=== PATIENT | female | born 1950 | race Caucasian/White ===

== ENCOUNTER 2020-06-05 08:35 | Outpatient (REF) | payer MEDICARE, SELFPAY ==
[2020-06-05 09:27] LABS: MANUAL DIFF FLAG NO
[2020-06-05 09:43] LABS: Basophils Percent Auto 0.6 % (0-2); Eosinophils Percent Auto 0.4 % (0-4); Hematocrit 41.6 % (37-47); Hemoglobin 13.8 g/dl (12.0-16.0); Imm Gran Abs Auto 0.02 X10*3/uL (0.00-0.03); Imm Gran Pct Auto 0.4 % (0.0-0.4); Lymphocytes Absolute Auto 1.7 X10*3/uL (1.2-4.9); Lymphocytes Percent Auto 34.6 % (20-40); Mean Corpuscular HGB Conc 33.2 g/dl (31.0-35.0); Mean Corpuscular Hemoglobin 30.8 pg (27.0-33.0); Mean Corpuscular Volume 92.9 fL (80-98); Mean Platelet Volume 11.1 fL (9.4-12.3); Monocytes Absolute Auto 0.5 X10*3/uL (0.1-1.2); Monocytes Percent Auto 9.3 % (2-11); Neutrophils Absolute Auto 2.6 X10*3/uL (2.0-8.3); Neutrophils Percent Auto 54.7 % (45-73); Platelet Count 199 X10*3/uL (160-400); Red Blood Count 4.48 X10*6/uL (4.20-5.50); Red Cell Distribution Width 12.1 % (11.0-16.0); White Blood Count 4.8 X10*3/uL (4.8-10.8)
[2020-06-05 09:44] LABS: Estimated Average Glucose 114 mg/dL; Hemoglobin A1c % 5.6 %
[2020-06-05 10:24] LABS: Alanine Aminotransferase 28 U/L (0-31); Albumin Level 4.5 g/dL (3.5-5.0); Alkaline Phosphatase 48 U/L (39-117); Anion Gap 12 (12-20); Aspartate Amino Transferase 31 U/L (5-31); Blood Urea Nitrogen 14 mg/dL (9-16); Carbon Dioxide 26 mmol/L (22-29); Chloride 108 mmol/L (96-108); Cholesterol 156 mg/dL; Estimated Glomerular Filt Rate > 60; Glucose Fasting 94 mg/dL (60-99); HDL Cholesterol 59 mg/dL; LDL Cholesterol Calculated 72 mg/dl; Potassium 4.2 mmol/l (3.3-5.1); Sodium 142 mmol/L (135-145); Total Protein 7.3 g/dL (6.5-8.0); Triglycerides 125 mg/dL
[2020-06-05 10:46] LABS: Thyroid Stimulating Hormone 1.59 mIU/mL (0.32-4.0); Vitamin D 25-OH Total 49.1 ng/mL (>30)
[2020-06-05 10:47] LABS: Folate 18.7 ng/mL (> or = 4.0); Vitamin B12 588 pg/mL (200-900)
== END 2020-06-05 08:36 | disposition home or self-care (01) ==
LOC: HO.LAB 08:35
PROVIDERS: Visit Provider Internal Medicine
DX: I25.10 Atherosclerotic heart disease of native coronary artery without angina pectoris (principal); E78.00 Pure hypercholesterolemia, unspecified; I10 Essential (primary) hypertension; F41.9 Anxiety disorder, unspecified; R73.02 Impaired glucose tolerance (oral); J30.9 Allergic rhinitis, unspecified; Z85.3 Personal history of malignant neoplasm of breast
CPT/HCPCS: 36415; 80053; 80061; 82306; 82607; 82746; 83036; 84436; 84443; 85025

== ENCOUNTER → 2020-08-10 14:31 | Outpatient (BNVA) | payer MEDICARE, SELFPAY | PROVIDERS: Visit Provider Internal Medicine Cardiovascular Disease | DX: I25.118 Atherosclerotic heart disease of native coronary artery with other forms of angina pectoris (principal); I10 Essential (primary) hypertension | CPT/HCPCS: 99212 ==

== ENCOUNTER 2020-08-31 09:11 | Outpatient (REF) | payer MEDICARE, SELFPAY | END 2020-08-31 09:12 | disposition home or self-care (01) | LOC: HO.WFDLDS 09:11 | PROVIDERS: PCP Internal Medicine; Visit Provider Internal Medicine | DX: Z20.822 Contact with and (suspected) exposure to COVID-19 (principal) | CPT/HCPCS: 36415; C9803; U0003 ==

== ENCOUNTER 2021-02-01 10:05 | Outpatient (REF) | payer MEDICARE, SELFPAY ==
--- NOTE | ~2021-02-01 | XR_ITS ---
EXAMINATION: XR FOOT, LEFT CLINICAL INFORMATION: Contusion. COMPARISON: None. TECHNIQUE: AP, lateral, and oblique views of the left foot. FINDINGS: There is a slightly displaced intra-articular fracture at the base of the 2nd distal phalanx, at the DIP joint, with the fracture line extending obliquely through the dorsal cortex. No additional fractures are evident. XR/XR foot LT 2V IMPRESSION: Slightly displaced/angulated, intra-articular fracture at the base of the 2nd distal phalanx.
== END 2021-02-01 10:06 | disposition home or self-care (01) ==
LOC: HO.XRAY 10:05
PROVIDERS: PCP Internal Medicine; Visit Provider Family Medicine
DX: S90.122A Contusion of left lesser toe(s) without damage to nail, initial encounter (principal)
CPT/HCPCS: 73620

== ENCOUNTER 2021-02-17 07:58 | Outpatient (REF) | payer MEDICARE, SELFPAY ==
--- NOTE | ~2021-02-17 | XR_ITS ---
EXAMINATION: XR FOOT, LEFT CLINICAL INFORMATION: Left foot pain. COMPARISON: Left foot radiographs dated 02/01/2021. TECHNIQUE: AP, lateral, and oblique views of the left foot. FINDINGS: Redemonstration of an oblique fracture through the dorsal base of the 2nd distal phalanx which contacts the articular surface. No significant change in anatomic alignment. No osseous erosion. Mild degenerative arthritis at the sesamoids. No abnormal soft tissue calcification. XR/XR foot LT min 3V IMPRESSION: Oblique fracture through the dorsal base of the 2nd distal phalanx which contacts the articular surface in unchanged anatomic alignment.
== END 2021-02-17 07:59 | disposition home or self-care (01) ==
LOC: HO.HOSX 07:58
PROVIDERS: Visit Provider Physician Assistant
DX: S92.302A Fracture of unspecified metatarsal bone(s), left foot, initial encounter for closed fracture (principal)
CPT/HCPCS: 73630; 99202

== ENCOUNTER 2021-03-09 08:27 | Outpatient (REF) | payer MEDICARE, SELFPAY ==
[2021-03-09 10:28] LABS: MANUAL DIFF FLAG NO
[2021-03-09 10:39] LABS: Basophils Percent Auto 0.4 % (0-2); Eosinophils Percent Auto 0.2 % (0-4); Hematocrit 41.6 % (37-47); Hemoglobin 14.2 g/dl (12.0-16.0); Imm Gran Abs Auto 0.01 X10*3/uL (0.00-0.03); Imm Gran Pct Auto 0.2 % (0.0-0.4); Lymphocytes Absolute Auto 1.7 X10*3/uL (1.2-4.9); Lymphocytes Percent Auto 34.7 % (20-40); Mean Corpuscular HGB Conc 34.1 g/dl (31.0-35.0); Mean Corpuscular Hemoglobin 31.3 pg (27.0-33.0); Mean Corpuscular Volume 91.6 fL (80-98); Monocytes Absolute Auto 0.4 X10*3/uL (0.1-1.2); Monocytes Percent Auto 8.3 % (2-11); Neutrophils Absolute Auto 2.7 X10*3/uL (2.0-8.3); Neutrophils Percent Auto 56.2 % (45-73); Platelet Count 187 X10*3/uL (160-400); Red Blood Count 4.54 X10*6/uL (4.20-5.50); Red Cell Distribution Width 12.2 % (11.0-16.0); White Blood Count 4.8 X10*3/uL (4.8-10.8)
[2021-03-09 10:44] LABS: Alanine Aminotransferase 41 U/L (0-31); Albumin Level 4.4 g/dL (3.5-5.0); Alkaline Phosphatase 50 U/L (39-117); Anion Gap 14 (12-20); Aspartate Amino Transferase 34 U/L (5-31); Bilirubin Total 0.8 mg/dL (0.0-1.0); Blood Urea Nitrogen 14 mg/dL (9-16); Calcium 9.6 mg/dL (8.4-10.2); Carbon Dioxide 25 mmol/L (22-29); Chloride 108 mmol/L (96-108); Cholesterol 142 mg/dL; Estimated Glomerular Filt Rate > 60; Glucose Random 98 mg/dL (60-115); HDL Cholesterol 55 mg/dL; LDL Cholesterol Calculated 70 mg/dl; Sodium 142 mmol/L (135-145); Total Protein 7.3 g/dL (6.5-8.0); Triglycerides 87 mg/dL
[2021-03-09 11:07] LABS: Free T4 (Free Thyroxine) 0.95 ng/dL (0.71-1.85); Thyroid Stimulating Hormone 1.61 uIU/mL (0.32-4.0); Vitamin D 25-OH Total 45.3 ng/mL (>30)
[2021-03-09 11:35] LABS: Folate 18.1 ng/mL (> or = 4.0); Vitamin B12 525 pg/mL (200-900)
== END 2021-03-09 08:28 | disposition home or self-care (01) ==
LOC: HO.10HDL 08:27
PROVIDERS: Visit Provider Internal Medicine
DX: I25.10 Atherosclerotic heart disease of native coronary artery without angina pectoris (principal); I10 Essential (primary) hypertension; E78.00 Pure hypercholesterolemia, unspecified
CPT/HCPCS: 36415; 80053; 80061; 82306; 82607; 82746; 84439; 84443; 85025

== ENCOUNTER → 2021-07-16 07:18 | Outpatient (REF) | payer MEDICARE, SELFPAY ==
--- NOTE | 2021-07-16 07:20 | CA_ITS ---
Transthoracic Echocardiogram Patient (Last, First, Middle): Alison Mary, Gender: Female Date of : 1950 Age: 70 Procedure Date: 07/16/2021 Procedure Type: Transthoracic Echocardiogram Location: OP Height: 162.56 cm Weight: 73.48 kg BSA: 1.79 m2 Heart Rate: bpm BP: 130 / 71 mmHg Research Program Assistant: AQUILES Referring MD: Jordan Tadeo MD Symptoms: I44.7 - Left bundle-branch block, unspecified Conclusions: - Normal left ventricular size and systolic function. - Normal right ventricular cavity size and systolic function. Findings Left Ventricle Normal left ventricular size and systolic function. There is mildly increased left ventricular wall thickness. The visually estimated ejection fraction is between 60-65%. There is no evidence of regional wall motion abnormalities. There is paradoxical septal motion consistent with a left bundle branch block. Diastolic function is normal for age. Normal global longitudinal strain. Right Ventricle Normal right ventricular cavity size and systolic function. Atria Both atria are normal in size. Aortic Valve There is a normal trileaflet aortic valve. There is mild calcification of the aortic valve. There is no aortic valve stenosis. There is no aortic valve regurgitation. Mitral Valve Normal mitral valve structure and function. There is trace mitral valve regurgitation. There is no mitral valve stenosis. Pulmonic Valve The pulmonic valve is likely normal. Tricuspid Valve Normal tricuspid valve structure and function. There is trace tricuspid valve regurgitation. Normal right atrial pressure. There is no evidence of pulmonary hypertension. Great Vessels There is mild dilatation of the ascending aorta measuring 3.60 cm. The visualized portions of the pulmonary artery and branches are normal. Venous The inferior vena cava is normal in size and collapses greater than 50% with inspiration. Pericardium/Pleural There is no evidence of pericardial effusion. Prior Study Comparison No prior study available for comparison. Measurements M-Mode Liner Measurements Normals - Women/Men LVIDd: 4.43 3.9-5.3/4.2-5.9 cm LVIDd Index: 2.47 1.9-3.2 cm/m2 LVIDs: 2.74 2.0-3.8 cm M-Mode Volumes LV EDV: 89.10 LV ESV: 28.00 2D Linear Measurements IVSd: 1.20 0.6-0.9/0.6-1.0 cm LVIDd: 4.21 3.9-5.3/4.2-5.9 cm LVIDd Index: 2.35 2.4-3.2/2.2-3.1 cm/m2 LVIDs: 2.43 2.0-3.6 cm LVPWd: 1.12 0.7-1.1 cm Ao Root: 3.50 2.1-3.5 cm LA Diam: 3.20 2.7-3.8/3.0-4.0 cm LAIDs Index: 1.79 1.5-2.3 cm/m2 LV Mass: 211.98 67-162/88-224 g LV Mass Index: 118.42 43-95/49-115 g/m2 LVOT Diam: 1.90 3.0+(-)1.3 cm 2D Systolic Function EF 4C: 69.80 >55% EF 2C: 69.90 >55% EF BiP: 69.70 >55% M-Mode Systolic Function FS: 38.10 27-47/25-43% LVEF: 68.60 >55% Mitral Valve MV Pk E: 0.54 MV PK A: 0.61 MV Decel Time: 254.00 E/A: 0.90 E'Lateral: 6.42 E'Medial: 5.98 E/E' Med: 9.00 E/E' Lat: 8.30 PHT: 74.00 MVA PHT: 2.97 Decel [place]: 2.11 Aortic Valve AoV Pk Shlomo: 1.47 AoV Pk Grad: 9.00 LVOT LVOT Pk Shlomo: 0.95 LVOT Mn Shlomo: 0.67 LVOT VTI: 0.22 LVOT Pk Grad: 4.00 LVOT Mn Grad: 2.00 LVOT Diam: 1.90 LVOT Area: 2.84 Diastolic Function MV Pk E: 0.54 MV Pk A: 0.61 E/A: 0.90 E'Medial: 5.98 E/E' Med: 9.00 E' Laterial: 6.42 E/E' Lat: 8.30 Right Ventricle TAPSE (mm): 2.43 Tricuspid Valve TR Pk Shlomo: 2.35 TR Pk Grad: 22.00 RA Press: 3.00 RVSP: 25.00 Great Vessels Aorta Ao Root-2D: 3.50 2.0-3.7 cm Ao Asc: 3.60 2.1-3.4 cm Updated in Other Vendor System with Status of Final Jordan Tadeo MD electronically signed on 07/18/2021 6:37:12 PM with status of Final
== END ==
LOC: HO.CARD 07:18
PROVIDERS: PCP Internal Medicine; Visit Provider Internal Medicine Cardiovascular Disease
DX: I44.7 Left bundle-branch block, unspecified (principal)
CPT/HCPCS: 93306

== ENCOUNTER → 2021-07-19 15:36 | Outpatient (BNVA) | payer MEDICARE, SELFPAY | PROVIDERS: PCP Internal Medicine; Referring Provider Internal Medicine; Visit Provider Internal Medicine Cardiovascular Disease | DX: I44.7 Left bundle-branch block, unspecified (principal); I20.8 Other forms of angina pectoris | CPT/HCPCS: 93005; 99212 ==

== ENCOUNTER 2022-01-18 09:10 | Day surgery (SDC) | payer MEDICARE, SELFPAY ==
[2022-01-12 11:35] VITALS: BMI 28.8
--- NOTE | 2022-01-17 08:35 | P.CONAN_ITS ---
Documented by User: Shayy Freeman NP 01/17/22 08:36 HPI - Anesthesia Eval Consult details Narrative: 71yo F for Colonoscopy PMFSH Active Problems Active Problems: All Active Problems (Updated 01/12/22 @ 11:28 by Fabiola Lopez RN) Hematoma (Acute) Stable angina (Acute) Foot fracture, left (Acute) Colon cancer screening (Acute) Metatarsal fracture (Acute) Generalized anxiety disorder (Acute) LBBB (left bundle branch block) (Acute) Colon cancer screening (Acute) Allergic rhinitis (Acute) GERD (gastroesophageal reflux disease) (Acute) Hypertension (Acute) Hypercholesterolemia (Acute) Coronary artery disease (Acute) Past Medical History Medical History COVID-19 vaccine series completed Fatty liver Fracture of distal phalanx of finger of right hand History of breast cancer Shingles Family History Family History Father CHF (congestive heart failure) CVD (cardiovascular disease) Mother Myocardial infarction CVD (cardiovascular disease) Brother Myocardial infarction Surgical History Surgical History H/O colonoscopy History of angioplasty History of lumpectomy of left breast History of tubal ligation Social History Social History Housing: House Alcohol intake: current Alcohol intake frequency: a few times a week Alcohol type: wine Patient Tobacco Use Status: Never used Tobacco e-Cigarette/Vaping Use: Never Used Second Hand Smoke Exposure: No Use of substances other than those prescribed or required for medical reasons: No Are you DNR?: No Advance Directives: No Advance Directives Information Provided: Yes Current occupational status: retired Cognitive needs: No Hearing needs: No Vision needs: Yes Meds Allergies Allergy/AdvReac Type Severity Reaction Status Date / Time lisinopril Allergy Severe anaphylaxis Verified 12/20/21 09:25 amoxicillin Allergy Intermediate rash Verified 12/20/21 09:25 atenolol Allergy Intermediate rash Verified 12/20/21 09:25 Sulfa (Sulfonamide Allergy Intermediate rash Verified 12/20/21 09:25 Antibiotics) Home Medications Medication Instructions Recorded Confirmed Last Taken Type aspirin 81 mg tablet,delayed 81 mg PO DAILY 06/22/20 01/12/22 Unknown History release (Adult Aspirin Regimen) biotin 5 mg capsule 5 mg PO DAILY 06/22/20 01/12/22 Unknown History cholecalciferol (vitamin D3) 25 25 mcg PO DAILY 06/22/20 01/12/22 Unknown History mcg (1,000 unit) capsule melatonin 3 mg capsule 3 mg PO BEDTIME PRN Insomnia 06/22/20 01/12/22 Unknown History hgvvoeio-bmn-gkypf acid 0.4 1 tab PO DAILY 06/22/20 01/12/22 Unknown History mg-lycopene 300 mcg-lutein 250 mcg tablet (Centrum Silver) nitroglycerin 0.4 mg sublingual 0.4 mg sublingual Q5M PRN Chest 06/22/20 01/12/22 Unknown History tablet Pain calcium carbonate 500 mg calcium 500 mg PO DAILY 07/19/21 01/12/22 Unknown History (1,250 mg) chewable tablet (Calcium 500) Exam Exam Date and Time: January 17, 2022 0835 Height,Weight and Vital Signs: Height 5 ft 4 in Weight 76.204 kg Narrative Narrative: EKG 07/2021 Sinus bradycardia 56 beats per minute, inferior T-wave inversions, precordial T- wave changes which are nonspecific, QT interval 438 milliseconds.? EKG from [facility] reviewed which was performed July 12.? Showing sinus bradycardia 54 beats per minute, left bundle-branch block, QT interval of 474 milliseconds. Assessment and Plan Assessment Anesthesia Assessment: Chart Reviewed Documented by User: Conrad Landin MD 01/18/22 10:22 [facility] Past Medical History Medical History COVID-19 vaccine series completed Fatty liver Fracture of distal phalanx of finger of right hand History of breast cancer Shingles Family History Family History Father CHF (congestive heart failure) CVD (cardiovascular disease) Mother Myocardial infarction CVD (cardiovascular disease) Brother Myocardial infarction Family history of problems with anesthesia: No Surgical History Surgical History H/O colonoscopy History of angioplasty History of lumpectomy of left breast History of tubal ligation History of Problems with Anesthesia: No Social History Social History Housing: House Alcohol intake: current Alcohol intake frequency: a few times a week Alcohol type: wine Patient Tobacco Use Status: Never used Tobacco e-Cigarette/Vaping Use: Never Used Second Hand Smoke Exposure: No Use of substances other than those prescribed or required for medical reasons: No Are you DNR?: No Advance Directives: No Advance Directives Information Provided: Yes Current occupational status: retired Cognitive needs: No Hearing needs: No Vision needs: Yes Meds Allergies Allergy/AdvReac Type Severity Reaction Status Date / Time lisinopril Allergy Severe anaphylaxis Verified 12/20/21 09:25 amoxicillin Allergy Intermediate rash Verified 12/20/21 09:25 atenolol Allergy Intermediate rash Verified 12/20/21 09:25 Sulfa (Sulfonamide Allergy Intermediate rash Verified 12/20/21 09:25 Antibiotics) Home Medications Medication Instructions Recorded Confirmed Last Taken Type aspirin 81 mg tablet,delayed 81 mg PO DAILY 06/22/20 01/12/22 Unknown History release (Adult Aspirin Regimen) biotin 5 mg capsule 5 mg PO DAILY 06/22/20 01/12/22 Unknown History cholecalciferol (vitamin D3) 25 25 mcg PO DAILY 06/22/20 01/12/22 Unknown History mcg (1,000 unit) capsule melatonin 3 mg capsule 3 mg PO BEDTIME PRN Insomnia 06/22/20 01/12/22 Unknown History bnsunnxf-thh-kjyfk acid 0.4 1 tab PO DAILY 06/22/20 01/12/22 Unknown History mg-lycopene 300 mcg-lutein 250 mcg tablet (Centrum Silver) nitroglycerin 0.4 mg sublingual 0.4 mg sublingual Q5M PRN Chest 06/22/20 01/12/22 Unknown History tablet Pain calcium carbonate 500 mg calcium 500 mg PO DAILY 07/19/21 01/12/22 Unknown History (1,250 mg) chewable tablet (Calcium 500) Exam Airway Mallampati Class: I TM Dist: >3cm Neck ROM: Full Loose/Missing/Broken Teeth: Yes Assessment and Plan Assessment Anesthesia Assessment: Anesthesia Plan Discussed Final Anesthetic Review Family History of Problems with Anesthesia: No History of Problems with Anesthesia: No NPO: Yes ASA Class: III Final Preanesthetic Review: No Changes in Pt Med Stat, Meds/Allgs Chart Reviewed, Consent Obtained/Reviewed and Anes Risks/Benef Reviewed Patient Risk: Intermediate Procedure Risk: Low Anesthetic Plan Anesthetic Plan: MAC: Disposition: Standard PACU
[2022-01-18 10:06] VITALS: BP 118/70; PULSE 50; RESP 16; TEMP 36.2; O2SAT 97; BMI 28.5
[2022-01-18] MEDS: Lactated Ringers 1,000 ML 100 ML IVCONT (10:19)
--- NOTE | 2022-01-18 10:20 | MHC.SHP ---
Pre-Procedural Eval Section A Date of Service: 01/18/22 Section B Chief Complaint: screening Details of Present Illness: see H&P no changes Relevant Family History (Specify if Yes): No Relevant Social History: None Present Medications: see Short Stay Collaborative assessment Medical History: No relevant PMH History of Previous Operations: No relevant previous surgery Allergies: Allergies Allergy/AdvReac Type Severity Reaction Status Date / Time lisinopril Allergy Severe anaphylaxis Verified 12/20/21 09:25 amoxicillin Allergy Intermediate rash Verified 12/20/21 09:25 atenolol Allergy Intermediate rash Verified 12/20/21 09:25 Sulfa (Sulfonamide Allergy Intermediate rash Verified 12/20/21 09:25 Antibiotics) Review of Systems Sugical H&P ROS: Negative: Constitution, Cardiovascular, Respiratory, Neurological, Psychiatric, Hem-Onc, Allergic/Immunologic, Gastrointestinal, Genitourinary, Musculoskeletal, Integumentary, Endocrine and Eyes/Ears/Nose/Throat Exam Surgical H&P Exam: Normal: HEENT, Normal: Heart, Normal: Lungs, Normal: Extremities, Normal: Abdomen, Normal: Skin and Normal: Neurological Plan Diagnosis/Plan: Unchanged I have reviewed the history and physical and performed a pertinent physical examination on my patient. No changes have occurred unless specified.
--- NOTE | 2022-01-18 10:56 | PM.OP ---
Brief Operative Note Date of Service: 01/18/22 Pre-op diagnosis: screening Post-op diagnosis: same Procedure: colonoscopy Surgeon: Nish Coy Anesthesia: MAC Was an [facility] Manager used for this Procedure?: No Estimated blood loss (mL): 2 Pathology: other (polyp x1) Condition: stable Disposition: PACU
[2022-01-18 11:00] VITALS: BP 104/54; PULSE 54; RESP 16; TEMP 36.3; O2SAT 96
[2022-01-18 11:15] VITALS: BP 124/64; PULSE 50; RESP 16; TEMP 36.3; O2SAT 96
[2022-01-18 11:29] VITALS: BP 125/67; PULSE 48; RESP 16; TEMP 36.3; O2SAT 96
--- NOTE | 2022-01-18 13:57 | OP_ITS ---
SURGEON: Nish Coy MD INDICATIONS: Colon cancer screening. PREOPERATIVE DIAGNOSIS: POSTOPERATIVE DIAGNOSIS: PROCEDURE PERFORMED: Colonoscopy to the terminal ileum with snare polypectomy. ESTIMATED BLOOD LOSS: COMPLICATIONS: ANESTHESIA: ASSISTANTS: SPECIMENS: MEDICATIONS: Monitored anesthesia care. DESCRIPTION OF PROCEDURE: History and physical were performed. The risks and benefits of the procedure were explained to the patient. Informed consent was obtained. The patient was placed in the left lateral decubitus position. A digital rectal exam was performed and was found to be normal. The Olympus pediatric video colonoscope was introduced into the rectum and advanced to the cecum without difficulty. The cecum was identified by transillumination, palpation, and identification of ileocecal valve. Examination was performed. The scope was removed. She tolerated the procedure well and was taken to recovery area in stable condition. FINDINGS: The terminal ileum was normal. The visualized colonic mucosa was normal. The quality of the prep was good. A single polyp measuring approximately 8 mm was removed with a snare at 7 0 cm. No other polyps were identified. There was mild sigmoid diverticulosis with a few scattered diverticula throughout the remainder of the colon. The sigmoid was somewhat tortuous. Retroflexed examination showed small internal hemorrhoids. IMPRESSION: Colon polyp. RECOMMENDATION: Follow up the biopsy results. MD GREY Wilson/CARLOS / [id number]
== END 2022-01-18 12:07 | disposition home or self-care (01) ==
PROVIDERS: PCP Internal Medicine; Visit Provider Internal Medicine Gastroenterology
PROC: 0DJD8ZZ Inspection of Lower Intestinal Tract, Via Natural or Artificial Opening Endoscopic (ICD-10-PCS; CPT 45378; principal; 2022-01-18 10:30)
DX: Z12.11 Encounter for screening for malignant neoplasm of colon (principal); D12.4 Benign neoplasm of descending colon; K57.30 Diverticulosis of large intestine without perforation or abscess without bleeding; K64.8 Other hemorrhoids; K76.0 Fatty (change of) liver, not elsewhere classified; K21.9 Gastro-esophageal reflux disease without esophagitis; I25.10 Atherosclerotic heart disease of native coronary artery without angina pectoris; Z98.61 Coronary angioplasty status; I10 Essential (primary) hypertension; E78.00 Pure hypercholesterolemia, unspecified; M81.0 Age-related osteoporosis without current pathological fracture; Z85.3 Personal history of malignant neoplasm of breast; Z92.3 Personal history of irradiation; Z79.82 Long term (current) use of aspirin; Z79.899 Other long term (current) drug therapy; Z88.2 Allergy status to sulfonamides; Z88.8 Allergy status to other drugs, medicaments and biological substances
CPT/HCPCS: 45385; 88305

== ENCOUNTER 2022-03-08 07:47 | Outpatient (REF) | payer MEDICARE, SELFPAY ==
[2022-03-08 07:59] LABS: MANUAL DIFF FLAG NO
[2022-03-08 08:35] LABS: Basophils Percent Auto 0.6 % (0-2); Eosinophils Percent Auto 0.2 % (0-4); Hematocrit 42.3 % (37.0-47.0); Hemoglobin 14.4 g/dl (12.0-16.0); Imm Gran Abs Auto 0.01 X10*3/uL (0.00-0.03); Imm Gran Pct Auto 0.2 % (0.0-0.4); Lymphocytes Absolute Auto 1.4 X10*3/uL (1.2-4.9); Lymphocytes Percent Auto 26.5 % (20-40); Mean Corpuscular Hemoglobin 30.8 pg (27.0-33.0); Mean Corpuscular Volume 90.4 fL (80.0-98.0); Mean Platelet Volume 10.6 fL (9.4-12.3); Monocytes Absolute Auto 0.5 X10*3/uL (0.1-1.2); Monocytes Percent Auto 8.7 % (2-11); Neutrophils Absolute Auto 3.5 x10*3/uL (2.0-8.3); Neutrophils Percent Auto 63.8 % (45-73); Platelet Count 191 X10*3/uL (160-400); Red Blood Count 4.68 X10*6/uL (4.20-5.50); Red Cell Distribution Width 12.2 % (11.0-16.0); White Blood Count 5.4 X10*3/uL (4.8-10.8)
[2022-03-08 09:00] LABS: Alanine Aminotransferase 25 U/L (0-31); Albumin Level 4.4 g/dL (3.5-5.0); Alkaline Phosphatase 47 U/L (39-117); Anion Gap 14 (12-20); Aspartate Amino Transferase 27 U/L (5-31); Bilirubin Total 0.8 mg/dL (0.0-1.0); Blood Urea Nitrogen 16 mg/dL (9-16); Carbon Dioxide 26 mmol/L (22-29); Chloride 107 mmol/L (96-108); Cholesterol 148 mg/dL; Estimated Glomerular Filt Rate > 60; Glucose Random 98 mg/dL (60-115); HDL Cholesterol 54 mg/dL; LDL Cholesterol Calculated 71 mg/dl; Potassium 4.8 mmol/L (3.3-5.1); Sodium 142 mmol/L (135-145); Total Protein 7.4 g/dL (6.5-8.0); Triglycerides 119 mg/dL
[2022-03-08 09:26] LABS: Free T4 (Free Thyroxine) 1.03 ng/dL (0.71-1.85); Thyroid Stimulating Hormone 1.52 uIU/mL (0.32-4.0); Vitamin D 25-OH Total 47.6 ng/mL (>30)
[2022-03-08 09:36] LABS: Folate 10.9 ng/mL (> or = 4.0); Vitamin B12 396 pg/mL (200-900)
== END 2022-03-08 07:48 | disposition home or self-care (01) ==
LOC: HO.LAB 07:47
PROVIDERS: PCP Internal Medicine; Visit Provider Internal Medicine
DX: I25.10 Atherosclerotic heart disease of native coronary artery without angina pectoris (principal); E78.00 Pure hypercholesterolemia, unspecified
CPT/HCPCS: 36415; 80053; 80061; 82306; 82607; 82746; 84439; 84443; 85025

== ENCOUNTER → 2022-08-10 10:36 | Outpatient (BNVA) | payer MEDICARE, SELFPAY | PROVIDERS: PCP Internal Medicine; Referring Provider Internal Medicine; Visit Provider Internal Medicine Cardiovascular Disease | DX: I25.118 Atherosclerotic heart disease of native coronary artery with other forms of angina pectoris (principal); I44.7 Left bundle-branch block, unspecified; I10 Essential (primary) hypertension | CPT/HCPCS: 93005; 99212 ==

== ENCOUNTER → 2022-08-30 08:40 | Outpatient (REF) | payer MEDICARE, SELFPAY ==
--- NOTE | ~2022-08-30 | NM_ITS ---
EXERCISE MYOCARDIAL PERFUSION STUDY INDICATION: Coronary disease, left bundle branch block, assess for ischemia TECHNIQUE: The patient was brought in for an exercise perfusion study on 08/30/2022. Patient performed exercise as per Rito protocol and was injected 25 mCi of sestamibi once target heart rate was achieved. Images were obtained using the SPECT gamma camera interlaced with the gating device. Images were obtained in supine position. Resting perfusion study was performed on 09/02/2022. Patient was administered 25 mCi of sestamibi intravenously at rest. Images were then obtained in supine position. Images were processed with the software and compared side to side in short axis, horizontal long axis and vertical long axis views. Total DLP 108mGy-cm. FINDINGS: Raw images were reviewed. The stress perfusion study showed diminished tracer uptake in the mid to distal part of anterior septum and anterior wall. Attenuation corrected images are of poor quality and not usable. Gated images are of poor quality, and LVEF unreliable. Resting study shows mildly diminished tracer uptake in the distal part of anterior septum but otherwise unremarkable. Possibly slight improvement with CT attenuation correction. Gating at rest reveals normal wall motion with ejection fraction at 53%. The findings are consistent with reversible perfusion defect in the distal part of anterior septum/adjacent anterior wall. Suboptimal study quality. KS/KS cardiolite stress test IMPRESSION: 1. Myocardial perfusion imaging study shows probable ischemia in the distal part of anterior septum/adjacent anterior wall. Unclear if this related to the left bundle branch block. Suboptimal study quality. 2. Gated LVEF not reliable during stress. Resting LVEF 53%. EKG component of the test reported separately.
--- NOTE | 2022-08-30 09:02 | CA_ITS ---
Acquisition Time: 2022-08-30 09:16:47 Total Exercise Time: 00:06:30 Test Indications: Suspected Angina ABN EKG CP Medications: AMLODIPINE ASA METOPROLOL SIMVASTATIN TRAZADONE EZETIMIBE Protocol: MATT Max HR: 134 BPM 91% of Pred: 146 BPM Max BP: 170/088 mmHG Max Work Load: 7.7 METS Exercise stress test with exercise 6 min 30 sec of Matt protocol, achieving 91% MPHR, with report of mild heaviness uppper chest, with isolated PACs and PVCs, with normotensive response to exercise, with nondiagnostic EKG for ischemia due to LBBB. In recovery her chest heaviness resolved., Nuclear images pending. Test reviewed with Dr Dawkins Test ordered by Dr Tadeo as exercise test. He was aware of LBBB. Referred By: Jordan Tadeo Overread By: SARKIS SHERIFF
== END ==
LOC: HO.CARD 08:40
PROVIDERS: PCP Internal Medicine; Visit Provider Internal Medicine Cardiovascular Disease
DX: I20.8 Other forms of angina pectoris (principal)
CPT/HCPCS: 78452; 93017; A9500

== ENCOUNTER 2022-09-07 09:38 | Outpatient (REF) | payer MEDICARE, SELFPAY ==
[2022-09-07 10:26] LABS: Anion Gap 11 (12-20); Blood Urea Nitrogen 14 mg/dL (9-16); Calcium 9.8 mg/dL (8.4-10.2); Carbon Dioxide 27 mmol/L (22-29); Chloride 109 mmol/L (96-108); Estimated Glomerular Filt Rate > 60; Glucose Random 91 mg/dL (60-115); Potassium 4.8 mmol/L (3.3-5.1); Sodium 142 mmol/L (135-145)
== END 2022-09-07 09:39 | disposition home or self-care (01) ==
LOC: HO.LAB 09:38
PROVIDERS: PCP Internal Medicine; Visit Provider Internal Medicine Cardiovascular Disease
DX: Z01.818 Encounter for other preprocedural examination (principal)
CPT/HCPCS: 36415; 80048

== ENCOUNTER 2022-09-28 06:55 | Outpatient (REF) | payer MEDICARE, SELFPAY ==
[2022-09-28 07:10] LABS: MANUAL DIFF FLAG NO
[2022-09-28 07:47] LABS: Basophils Percent Auto 0.6 % (0-2); Hematocrit 42.4 % (37.0-47.0); Hemoglobin 14.5 g/dl (12.0-16.0); Imm Gran Abs Auto 0.01 X10*3/uL (0.00-0.03); Imm Gran Pct Auto 0.2 % (0.0-0.4); Lymphocytes Absolute Auto 1.8 X10*3/uL (1.2-4.9); Lymphocytes Percent Auto 35.8 % (20-40); Mean Corpuscular HGB Conc 34.2 g/dl (31.0-35.0); Mean Corpuscular Volume 90.8 fL (80.0-98.0); Mean Platelet Volume 11.2 fL (9.4-12.3); Monocytes Absolute Auto 0.4 X10*3/uL (0.1-1.2); Monocytes Percent Auto 8.7 % (2-11); Neutrophils Absolute Auto 2.7 x10*3/uL (2.0-8.3); Neutrophils Percent Auto 54.7 % (45-73); Platelet Count 204 X10*3/uL (160-400); Red Blood Count 4.67 X10*6/uL (4.20-5.50); Red Cell Distribution Width 11.9 % (11.0-16.0); White Blood Count 4.9 X10*3/uL (4.8-10.8)
[2022-09-28 07:54] LABS: Prothrombin Time 11.8 SEC (10.0-13.1)
[2022-09-28 08:20] LABS: Alanine Aminotransferase 44 U/L (0-31); Albumin Level 4.3 g/dL (3.5-5.0); Alkaline Phosphatase 44 U/L (39-117); Anion Gap 11 (12-20); Aspartate Amino Transferase 41 U/L (5-31); Bilirubin Total 0.7 mg/dL (0.0-1.0); Blood Urea Nitrogen 17 mg/dL (9-16); Calcium 9.8 mg/dL (8.4-10.2); Carbon Dioxide 28 mmol/L (22-29); Chloride 108 mmol/L (96-108); Cholesterol 142 mg/dL; Estimated Glomerular Filt Rate > 60; Glucose Random 107 mg/dL (60-115); HDL Cholesterol 44 mg/dL; LDL Cholesterol Calculated 75 mg/dl; Sodium 142 mmol/L (135-145); Total Protein 7.2 g/dL (6.5-8.0); Triglycerides 115 mg/dL
[2022-09-28 08:50] LABS: Folate 10.5 ng/mL (> or = 4.0); Free T4 (Free Thyroxine) 0.93 ng/dL (0.71-1.85); Vitamin B12 504 pg/mL (200-900)
== END 2022-09-28 06:56 | disposition home or self-care (01) ==
LOC: HO.LAB 06:55
PROVIDERS: PCP Internal Medicine; Visit Provider Internal Medicine Cardiovascular Disease
DX: Z01.812 Encounter for preprocedural laboratory examination (principal); E78.00 Pure hypercholesterolemia, unspecified; R94.39 Abnormal result of other cardiovascular function study; M81.0 Age-related osteoporosis without current pathological fracture
CPT/HCPCS: 36415; 80053; 80061; 82306; 82607; 82746; 84439; 84443; 85025; 85610

== ENCOUNTER → 2022-10-21 13:05 | Outpatient (BNVA) | payer MEDICARE, SELFPAY | PROVIDERS: PCP Internal Medicine; Referring Provider Internal Medicine; Visit Provider Nurse Practitioner Family | DX: I25.10 Atherosclerotic heart disease of native coronary artery without angina pectoris (principal); I44.7 Left bundle-branch block, unspecified; I10 Essential (primary) hypertension; R94.39 Abnormal result of other cardiovascular function study; Z98.890 Other specified postprocedural states | CPT/HCPCS: 99212 ==

== ENCOUNTER 2022-11-25 12:37 | Outpatient (REF) | payer MEDICARE, SELFPAY ==
--- NOTE | ~2022-11-25 | US_ITS ---
EXAMINATION: RIGHT AND LEFT LOWER EXTREMITY VENOUS ULTRASOUND (REFLUX EXAM) CLINICAL INDICATION: leg pain and varicose veins. COMPARISON: None. TECHNIQUE: Color flow triplex imaging and compression Doppler was performed to evaluate both the deep and the superficial systems bilaterally. To evaluate the superficial system, the examination was performed in the upright position. Color-flow Doppler ultrasound and compression ultrasound were utilized. In addition, maneuvers were utilized to demonstrate reflux. FINDINGS: 1. DEEP VENOUS ULTRASOUND OF THE RIGHT LOWER EXTREMITY: Respiratory variation, normal compression and augmented flow are noted in the right common femoral vein as well as the right popliteal vein and there is no evidence of deep venous thrombosis at these locations. There is no evidence of reflux in the deep system in either the common femoral vein or the popliteal vein. No popliteal artery aneurysm. No popliteal fossa cyst. 2. SUPERFICIAL ULTRASOUND WITH DOPPLER OF RIGHT LOWER EXTREMITY: The right great saphenous vein at the saphenofemoral junction measures 6 mm, at the midthigh 2 mm, vfmuk-clh-okiz 2 mm, lzlns-onn-rvuf 2 mm, at midcalf 1 mm and at the ankle measures 2 mm. There is no reflux demonstrated in the right great saphenous vein. The right small saphenous vein measures 1 mm and shows no reflux. 3. DEEP VENOUS ULTRASOUND OF THE LEFT LOWER EXTREMITY: Respiratory variation, normal compression and augmented flow are noted in the left common femoral vein as well as the left popliteal vein and there is no evidence of deep venous thrombosis at these locations. There is no evidence of reflux in the deep system in either the common femoral vein or the popliteal vein. No popliteal fossa aneurysm. No popliteal fossa cyst. 4. SUPERFICIAL ULTRASOUND WITH DOPPLER OF LEFT LOWER EXTREMITY: Left great saphenous vein at the saphenofemoral junction measures 4 mm, at the midthigh 2 mm, ucels-fgc-qmeo 2 mm, sxruu-lol-hulx 1 mm, at midcalf 1 mm and at the ankle measures 2 mm. There is no reflux demonstrated in the left great saphenous vein. The left small saphenous vein measures 2 mm and shows no reflux. US/US venous duplex LE BI IMPRESSION: 1. No evidence of reflux or thrombus in the common femoral veins or popliteal veins bilaterally. 2. The saphenous systems are competent bilaterally.
--- NOTE | ~2022-11-25 | US_ITS ---
EXAMINATION: US EXTRACRANIAL CAROTID DUPLEX, BILATERAL CLINICAL INFORMATION: Carotid bruit. COMPARISON: None available. TECHNIQUE: Real-time ultrasound and Doppler techniques (integrating B-mode 2-D vascular images, Doppler spectral analysis and color-flow Doppler imaging) were utilized to interrogate the extracranial carotid arteries, the vertebral arteries and proximal subclavian arteries bilaterally. The degree of stenosis is determined by criteria similar to NASCET. FINDINGS: Right Side: 1. There is mild atherosclerotic plaque seen in the bifurcation/proximal ICA region. 2. The common carotid artery PSV proximally is 90 cm/s and distally 73 cm/s. 3. The proximal internal carotid artery velocities are 45 cm/s systolic and 17 cm/s diastolic. 4. The proximal external carotid artery PSV is 81 cm/s. 5. The vertebral artery shows antegrade flow. 6. The subclavian artery waveforms are normal. Left Side: 1. There is none atherosclerotic plaque seen in the bifurcation/proximal ICA region. 2. The common carotid artery PSV proximally is 90 cm/s and distally 74 cm/s. 3. The proximal internal carotid artery velocities are 79 cm/s systolic and 28 cm/s diastolic. 4. The proximal external carotid artery PSV is 105 cm/s. 5. The vertebral artery shows antegrade flow. 6. The subclavian artery waveforms are normal. US/US carotid duplex BI IMPRESSION: 1. RIGHT: Minimal, non-hemodynamically significant stenosis of the proximal right internal carotid artery corresponding to a 0-49% stenosis by velocity criteria. 2. LEFT: Normal left internal carotid artery without atherosclerotic plaque or hemodynamically significant stenosis.
== END 2022-11-25 12:38 | disposition home or self-care (01) ==
LOC: HO.US 12:37
PROVIDERS: PCP Internal Medicine; Visit Provider Thoracic Surgery (Cardiothoracic Vascular Surgery)
DX: I87.2 Venous insufficiency (chronic) (peripheral) (principal); R09.89 Other specified symptoms and signs involving the circulatory and respiratory systems
CPT/HCPCS: 93880; 93970

== ENCOUNTER → 2023-01-13 13:58 | Outpatient (REF) | payer MEDICARE, SELFPAY ==
[2023-01-13 13:23] LABS: MANUAL DIFF FLAG NO
[2023-01-13 13:58] LABS: Basophils Percent Auto 0.8 % (0-2); Eosinophils Percent Auto 0.8 % (0-4); Hematocrit 37.9 % (37.0-47.0); Imm Gran Abs Auto 0.01 X10*3/uL (0.00-0.03); Imm Gran Pct Auto 0.2 % (0.0-0.4); Lymphocytes Absolute Auto 1.5 X10*3/uL (1.2-4.9); Lymphocytes Percent Auto 30.2 % (20-40); Mean Corpuscular HGB Conc 31.7 g/dl (31.0-35.0); Mean Corpuscular Hemoglobin 28.9 pg (27.0-33.0); Mean Corpuscular Volume 91.3 fL (80.0-98.0); Monocytes Absolute Auto 0.5 X10*3/uL (0.1-1.2); Monocytes Percent Auto 9.3 % (2-11); Neutrophils Absolute Auto 2.8 x10*3/uL (2.0-8.3); Neutrophils Percent Auto 58.7 % (45-73); Platelet Count 276 X10*3/uL (160-400); Red Blood Count 4.15 X10*6/uL (4.20-5.50); Red Cell Distribution Width 13.3 % (11.0-16.0); White Blood Count 4.8 X10*3/uL (4.8-10.8)
--- NOTE | 2023-01-13 14:01 | CA_ITS ---
Transthoracic Echocardiogram Patient (Last, First, Middle): Alison Mary, Gender: Female Date of : 1950 Age: 72 Procedure Date: 01/13/2023 Procedure Type: Transthoracic Echocardiogram Location: OP Height: 160.02 cm Weight: 69.85 kg BSA: 1.73 m2 Heart Rate: 63 bpm BP: 124 / 68 mmHg Sap Technical Developer: Referring MD: Adwoa Garg [employer]ER [employer]-Teri Symptoms: Z95.1 - Presence of aortocoronary bypass graft Study Quality: Adequate w contrast ECG Rhythm: Sinus Conclusions: - Normal left ventricular cavity size. There is mildly increased left ventricular wall thickness. The left ventricular systolic function is mildly decreased. The visually estimated ejection fraction is between 40-45%. - The entire apex is akinetic. Findings Procedure Information Contrast agent, definity, is being given per protocol without apparent complications. Left Ventricle Normal left ventricular cavity size. There is mildly increased left ventricular wall thickness. The left ventricular systolic function is mildly decreased. The visually estimated ejection fraction is between 40-45%. There is evidence of regional wall motion abnormalities. There is paradoxical septal motion consistent with post-operative status and paradoxical septal motion consistent with a left bundle branch block. Diastolic function is indeterminate on the basis of available data. Wall Motion Rest Echo Findings The entire apex is akinetic. Right Ventricle Normal right ventricular cavity size and systolic function. Atria The left atrium is normal in size. Aortic Valve There is a normal trileaflet aortic valve. There is mild calcification of the aortic valve. There is no aortic valve stenosis. There is trace (trivial) aortic valve regurgitation. Mitral Valve The mitral valve appears normal. There is mild mitral valve regurgitation. There is no mitral valve stenosis. Pulmonic Valve Normal pulmonic valve structure and function. There is no pulmonic valve regurgitation. Tricuspid Valve Normal tricuspid valve structure. There is mild tricuspid valve regurgitation. Normal right atrial pressure. There is no evidence of pulmonary hypertension. Great Vessels The visualized portions of the pulmonary artery and branches are normal. Venous The inferior vena cava is normal in size and collapses greater than 50% with inspiration. Pericardium/Pleural There is no evidence of pericardial effusion. Prior Study Comparison Changes noted compared to prior study dated: 07/16/2021. EF 40-45%, apical segments are aknetic. Measurements 2D Linear Measurements IVSd: 1.12 0.6-0.9/0.6-1.0 cm LVIDd: 4.29 3.9-5.3/4.2-5.9 cm LVIDd Index: 2.48 2.4-3.2/2.2-3.1 cm/m2 LVIDs: 2.85 2.0-3.6 cm LVPWd: 1.09 0.7-1.1 cm LA Diam: 3.90 2.7-3.8/3.0-4.0 cm LAIDs Index: 2.25 1.5-2.3 cm/m2 LV Mass: 203.50 67-162/88-224 g LV Mass Index: 117.63 43-95/49-115 g/m2 LVOT Diam: 2.00 3.0+(-)1.3 cm 2D Systolic Function EF 4C: 43.10 >55% EF 2C: 39.10 >55% EF BiP: 40.70 >55% Mitral Valve MV Pk E: 0.54 MV PK A: 0.85 MV Decel Time: 187.00 E/A: 0.60 E'Lateral: 5.00 E'Medial: 3.26 E/E' Med: 16.70 E/E' Lat: 10.90 PHT: 55.00 MVA PHT: 4.00 Decel [place]: 2.92 Aortic Valve AoV Pk Shlomo: 1.60 AoV Mn Shlomo: 0.93 AoV VTI: 0.36 AoV Pk Grad: 10.00 Aov Mn Grad: 4.00 EUGENE Cont.VTI: 1.79 LVOT LVOT Pk Shlomo: 0.88 LVOT Mn Shlomo: 0.58 LVOT VTI: 0.21 LVOT Pk Grad: 3.00 LVOT Mn Grad: 2.00 LVOT Diam: 2.00 LVOT Area: 3.14 Diastolic Function MV Pk E: 0.54 MV Pk A: 0.85 E/A: 0.60 E'Medial: 3.26 E/E' Med: 16.70 E' Laterial: 5.00 E/E' Lat: 10.90 Right Ventricle TAPSE (mm): 17.50 Tricuspid Valve TR Pk Shlomo: 1.95 TR Pk Grad: 15.00 RA Press: 3.00 RVSP: 18.00 Great Vessels Aorta Sinus of Valsalva: 3.30 2.0-3.5 cm Pulmonary Valve PV Pk Shlomo: 1.03 Peak PV Grad: 4.00 Updated in Other Vendor System with Status of Final Jordan Tadeo MD electronically signed on 01/13/2023 3:42:41 PM with status of Final
[2023-01-13 14:20] LABS: Alanine Aminotransferase 23 U/L (0-31); Alkaline Phosphatase 59 U/L (39-117); Anion Gap 13 (12-20); Aspartate Amino Transferase 34 U/L (5-31); Bilirubin Total 0.5 mg/dL (0.0-1.0); Blood Urea Nitrogen 12 mg/dL (9-16); Calcium 9.7 mg/dL (8.4-10.2); Carbon Dioxide 25 mmol/L (22-29); Chloride 106 mmol/L (96-108); Estimated Glomerular Filt Rate > 60; Glucose Random 97 mg/dL (60-115); Magnesium 2.1 mg/dL (1.6-2.6); Potassium 4.1 mmol/L (3.3-5.1); Sodium 140 mmol/L (135-145); Total Protein 6.9 g/dL (6.5-8.0)
== END ==
LOC: HO.CARD 13:58
PROVIDERS: PCP Internal Medicine; Visit Provider Nurse Practitioner Family
DX: Z13.89 Encounter for screening for other disorder (principal)
CPT/HCPCS: 36415; 80053; 83735; 84484; 85025; 93306; Q9957

== ENCOUNTER 2023-01-13 15:41 | Inpatient (IN) | payer MEDICARE, SELFPAY ==
--- NOTE | ~2023-01-13 | XR_ITS ---
EXAMINATION: XR CHEST CLINICAL INFORMATION: Cough. COMPARISON: No similar priors. TECHNIQUE: AP view of the chest was obtained. FINDINGS: No significant cardiomediastinal contour abnormality. Midline sternotomy wires and mediastinal surgical clips are seen. Left-sided axillary surgical clips. No focal airspace opacity, pleural effusion or pneumothorax. No acute osseous findings. Nonspecific calcific bodies projecting over the region of the left inferior breast. The included portions of the upper abdomen are within normal limits. XR/XR chest 1V IMPRESSION: 1. No acute cardiopulmonary findings. 2. Nonspecific calcific bodies projecting over the region of the left inferior breast, recommend correlation with physical examination and if the patient is due follow-up with mammographic examinations.
[2023-01-13 15:50] VITALS: BP 144/80; PULSE 60; RESP 16; TEMP 37; O2SAT 97; BMI 27.6
[2023-01-13] MEDS: Heparin Sodium,Porcine 5,000 UNIT/ML VIAL 5000 UNIT IVPUSH (16:14)
--- NOTE | 2023-01-13 16:16 | ED_ITS ---
HPI - General Adult General Chief complaint: Recheck/Abnormal Lab/Rx Stated complaint: Sent from cardio Time Seen by Provider: 01/13/23 16:11 Source: patient Mode of arrival: ambulatory History of Present Illness HPI narrative: 72-year-old female who is referred down from the cardiology office after abnormal EKG changes which demonstrated ST depressions with an elevated troponin and echocardiogram of EF-45% on a follow-up appointment after CABG x3. Patient denies any chest pain or shortness of breath and has thus far had an uneventful recovery. Patient denies any dizziness, headaches, shortness of breath, weakness since her CABG. And denies any palpitations or chest pain. Related Data Home Medications Medication Instructions Recorded Confirmed aspirin 81 mg tablet,delayed 81 mg PO DAILY 06/22/20 01/12/23 release (Adult Aspirin Regimen) cholecalciferol (vitamin D3) 25 25 mcg PO DAILY 06/22/20 01/12/23 mcg (1,000 unit) capsule [id number] acid 0.4 1 tab PO DAILY 06/22/20 01/12/23 mg-lycopene 300 mcg-lutein 250 mcg tablet (Centrum Silver) nitroglycerin 0.4 mg sublingual 0.4 mg sublingual Q5M PRN Chest 06/22/20 01/12/23 tablet Pain calcium carbonate 500 mg calcium 500 mg PO DAILY 07/19/21 01/12/23 (1,250 mg) chewable tablet (Calcium 500) Previous Rx's Medication Instructions Recorded azelastine 137 mcg (0.1 %) nasal 2 spray intranasal ONCE #30 mL 12/20/21 spray aerosol trazodone 50 mg tablet 50 mg PO BEDTIME #90 tabs 04/12/22 metoprolol tartrate 25 mg tablet 25 mg PO BID #180 tabs 09/02/22 rosuvastatin 40 mg tablet 40 mg PO DAILY #90 tabs 09/02/22 clopidogrel 75 mg tablet 75 mg PO DAILY #90 tabs 10/08/22 ezetimibe 10 mg tablet 10 mg PO DAILY #90 tabs 11/28/22 alprazolam 0.25 mg tablet 0.25 mg PO BID PRN anxiety #20 tabs 01/03/23 Allergies Allergy/AdvReac Type Severity Reaction Status Date / Time lisinopril Allergy Severe anaphylaxis Verified 01/12/23 15:34 amoxicillin Allergy Intermediate rash Verified 01/12/23 15:34 atenolol Allergy Intermediate rash Verified 01/12/23 15:34 Sulfa (Sulfonamide Allergy Intermediate rash Verified 01/12/23 15:34 Antibiotics) Review of Systems Review of Systems: Pertinent positives and negatives as stated in [facility] Past Medical History Source: nursing notes reviewed Medical History Coronary artery disease COVID-19 vaccine series completed Fatty liver Fracture of distal phalanx of finger of right hand GERD (gastroesophageal reflux disease) History of breast cancer Hypercholesterolemia Hypertension Shingles Surgical History H/O colonoscopy History of angioplasty History of lumpectomy of left breast History of tubal ligation S/P CABG x 3 Family History Family History Father CHF (congestive heart failure) CVD (cardiovascular disease) Mother Myocardial infarction CVD (cardiovascular disease) Brother Myocardial infarction Social History Social History Housing: House Alcohol intake: current Alcohol intake frequency: a few times a week Alcohol type: wine Patient Tobacco Use Status: Never used Tobacco e-Cigarette/Vaping Use: Never Used Second Hand Smoke Exposure: No Advance Directives: No Advance Directives Information Provided: No Current occupational status: retired Cognitive needs: No Hearing needs: No Vision needs: Yes Physical Exam ED Vital Signs: Vital Signs - 24 hr 01/13/23 15:50 Temperature 98.6 F Pulse Rate 60 Respiratory Rate 16 Blood Pressure 144/80 H Pulse Oximetry 97 Oxygen Delivery Method Room Air BMI result Body Mass Index 27.6 VITAL SIGNS: Reviewed. GENERAL: Well developed, well nourished, in no acute distress. HEAD: Normocephalic/atraumatic EYES: PERRLA, EOMI EARS: Ext canals without abnormality NOSE: Nares patent bilateral OROPHARYNX: no oral lesions noted, posterior pharynx clear NECK: Supple, no adenopathy LUNGS: Normal breath sounds. No adventitious sounds or accessory muscle use. SpO2<97>; CHEST WALL: Well-healing midsternal scar without erythema or induration CARDIOVASCULAR: Regular rate and rhythm without noted murmurs, no JVD or lower extremity edema. ABDOMEN: Soft, non-tender, non-distended with bowel sounds, INCISIONS HEALING WELL MUSCULOSKELETAL: No tenderness, deformities, or effusions noted on gross inspection. EXTREMITIES: No cyanosis, clubbing or edema; LEFT UPPER EXTREMITY: THERE IS A WELL-HEALING SCAR AT THE WRIST AND AC, DONOR SITE FOR 1 OF THE VESSELS FOR THE CABG SKIN: Inspection of the skin reveals no rashes, ulcerations, jaundice, pallor, or petechiae. NEUROLOGIC: Alert and oriented x 4. Strength and sensation to light touch were grossly intact x 4. Medications Administered Generic Name Dose Route Start Last Admin Trade Name Freq PRN Reason Stop Dose Admin Heparin Sodium/Sodium Chloride 25,000 unit in 250 mls @ 0 mls/hr 01/13/23 16:00 01/13/23 16:53 Heparin Sodium,Porcine/1/2ns IVCONT 12 units/kg/hr .Q0M ARIELLA 8.48 mls/hr Administration Protocol Per Protocol Discontinued Medications Generic Name Dose Route Start Last Admin Trade Name Freq PRN Reason Stop Dose Admin Heparin Sodium (Porcine) 5,000 unit 01/13/23 15:58 01/13/23 16:14 Heparin Sodium,Porcine 5,000 Unit/Ml Vial IVPUSH 01/13/23 15:59 5,000 unit ONCE ONE Administration Medical Decision Making Medical Decision Making MDM Narrative: 72-year-old female who is status post CABG x3 and otherwise asymptomatic, but on follow-up appointment appear to decreased cardiac function with elevated troponins and will be further evaluated as an inpatient. Patient is hemodynamically stable, pain free, EKG does demonstrate T-wave inversions in troponins are elevated to 1364/1416. I discussed with the inpatient hospitalist who accepts admission. Differential Diagnosis Please see the discussion above Consult Healthcare Provider Management of the patient was discussed with: Hospitalist Please see the discussion above Lab Data Please see the discussion above 01/13/23 16:16 Labs: Lab Results 01/13/23 01/13/23 01/13/23 Range/Units 16:06 16:06 16:16 WBC 5.0 (4.8-10.8) X10*3/uL RBC 3.94 L (4.20-5.50) X10*6/uL Hgb 11.4 L (12.0-16.0) g/dl Hct 35.4 L (37.0-47.0) % MCV 89.8 (80.0-98.0) fL MCH 28.9 (27.0-33.0) pg MCHC 32.2 (31.0-35.0) g/dl RDW 13.2 (11.0-16.0) % Plt Count 234 (160-400) X10*3/uL MPV 10.9 (9.4-12.3) fL Immature Gran % (Auto) 0.2 (0.0-0.4) % Neut % (Auto) 62.1 (45-73) % Lymph % (Auto) 25.2 (20-40) % [place] % (Auto) 11.3 H (2-11) % Eos % (Auto) 0.2 (0-4) % Baso % (Auto) 1.0 (0-2) % Lymph # (Auto) 1.3 (1.2-4.9) X10*3/uL [place] # (Auto) 0.6 (0.1-1.2) X10*3/uL Eos # (Auto) 0.0 (0.0-0.4) X10*3/uL Baso # (Auto) 0.1 (0.0-0.2) X10*3/uL Abs Immat Gran (auto) 0.01 (0.00-0.03) X10*3/uL Absolute Neuts (auto) 3.1 (2.0-8.3) x10*3/uL Absolute Nucleated RBC 0.000 (0.0-0.012) X10*3/uL Nucleated RBC % (auto) 0.0 (0.0-0.2) /100WBC PT 11.9 (10.0-13.1) SEC INR 1.0 (0.9-1.1) APTT 29.4 (26.0-36.4) SEC Troponin I High Sens 1416.9 H* (<3.5-17.0) ng/L Independent Interpretation I performed an independent interpretation of an: EKG Interpretation: Sinus rhythm, new T-wave abnormality Radiology Impression Radiologist Impression: My interpretation is in agreement with radiology's impression Discharge Plan Discharge Patient Disposition: Admitted As Inpatient Prescriptions: No Action trazodone 50 mg tablet 50 mg PO BEDTIME Qty: 90 2RF clopidogrel 75 mg tablet 75 mg PO DAILY Qty: 90 3RF ezetimibe 10 mg tablet 10 mg PO DAILY Qty: 90 3RF alprazolam 0.25 mg tablet 0.25 mg PO BID PRN (Reason: anxiety) Qty: 20 0RF cholecalciferol (vitamin D3) 25 mcg (1,000 unit) capsule 25 mcg PO DAILY Centrum Silver 0.4-300-250 mg-mcg-mcg tablet 1 tab PO DAILY aspirin [Adult Aspirin Regimen] 81 mg tablet,delayed release (DR/EC) 81 mg PO DAILY nitroglycerin 0.4 mg tablet, sublingual 0.4 mg sublingual Q5M PRN (Reason: Chest Pain) Rx Instructions: do not exceed 3 doses per episode azelastine 137 mcg (0.1 %) aerosol,spray 2 spray intranasal ONCE Qty: 30 11RF Rx Instructions: administer into each nostril rosuvastatin 40 mg tablet 40 mg PO DAILY Qty: 90 3RF metoprolol tartrate 25 mg tablet 25 mg PO BID Qty: 180 3RF calcium carbonate [Calcium 500] 500 mg calcium (1,250 mg) tablet,chewable 500 mg PO DAILY
[2023-01-13 16:22] LABS: Prothrombin Time 11.9 SEC (10.0-13.1)
[2023-01-13 16:24] LABS: MANUAL DIFF FLAG NO
--- NOTE | 2023-01-13 16:24 | P.HPHOSP_ITS ---
History of Present Illness Date of Service: 01/13/23 Chief Complaint: Abnormal ECG and elevated troponin 72-year-old female with history of coronary disease status post 3 vessel CABG on 12/02/22 and was seen in follow up in cardiology office yesterday and had routine ECG that is shows ischemic changes and subsequently had routine troponin I level that was elevated at 1361. She however has been experiencing any chest pain, SOB of breath, ECG show apical abnormality. She is being admitted for further evaluation and management. Of note she is under tremendous stress from been sick. Review of Systems Review of Systems: Gen: no fever Resp: no sob, no cough CV: no chest, no GARCIA, no leg edema GI: No n/v, no abd pain Neuro: No confusion Psych: stressed [facility] Medical History Coronary artery disease COVID-19 vaccine series completed Fatty liver Fracture of distal phalanx of finger of right hand GERD (gastroesophageal reflux disease) History of breast cancer Hypercholesterolemia Hypertension Shingles Family History Father CHF (congestive heart failure) CVD (cardiovascular disease) Mother Myocardial infarction CVD (cardiovascular disease) Brother Myocardial infarction Surgical History H/O colonoscopy History of angioplasty History of lumpectomy of left breast History of tubal ligation S/P CABG x 3 Social History Household Members: Spouse Housing: House Do you presently have visiting nurse or other home services: Yes Alcohol intake: current Alcohol intake frequency: a few times a week Alcohol type: wine Patient Tobacco Use Status: Never used Tobacco Smoked in Last 30 Days: No e-Cigarette/Vaping Use: Never Used Second Hand Smoke Exposure: No Use of substances other than those prescribed or required for medical reasons: No Currently Displaying Signs/Symptoms of Drug Intoxication Withdrawal: No Have you been hit, kicked, punched, or otherwise hurt by someone within the past year? If so, by whom?: No Do you feel safe in your current relationship?: Yes Is there a partner from a previous relationship who is making you feel unsafe now?: No Are you made to feel afraid or neglected: No Advance Directives: No Advance Directives Information Provided: No Do you have thoughts of harming others: None Do you have a plan to hurt others: No Plan Recently lost weight without trying: Yes How much weight loss: 14-23 pounds Eating poorly because of decreased appetite: No Nutrition screen score: 4 Nutrition Risks: No Nutritional Risk Patient : No : No Poor oral hygiene: No Current occupational status: retired Cognitive needs: No Hearing needs: No Vision needs: Yes Meds Allergies Allergy/AdvReac Type Severity Reaction Status Date / Time lisinopril Allergy Severe anaphylaxis Verified 01/12/23 15:34 amoxicillin Allergy Intermediate rash Verified 01/12/23 15:34 atenolol Allergy Intermediate rash Verified 01/12/23 15:34 Sulfa (Sulfonamide Allergy Intermediate rash Verified 01/12/23 15:34 Antibiotics) Active Medications: Current Medications Heparin Sodium (Porcine) (Heparin Sodium,Porcine 5,000 Unit/Ml Vial) 2,800 unit 40 unit/kg (2800 unit) IVPUSH PROTOCOL BOLUS PRN; Protocol PRN Reason: 40 unit/kg - Heparin Protocol Heparin Sodium (Porcine) (Heparin Sodium,Porcine 5,000 Unit/Ml Vial) 5,700 unit 80 unit/kg (5700 unit) IVPUSH PROTOCOL BOLUS PRN; Protocol PRN Reason: 80 unit/kg - Heparin Protocol Heparin Sodium/Sodium Chloride (Heparin Sodium,Porcine/1/2ns) 25,000 unit in 250 mls @ 0 mls/hr IVCONT .Q0M ARIELLA; Protocol Home Medications Medication Instructions Recorded Confirmed Last Taken Type aspirin 81 mg tablet,delayed 81 mg PO DAILY 06/22/20 01/13/23 01/13/23 09:00 History release (Adult Aspirin Regimen) cholecalciferol (vitamin D3) 50 50 mcg PO DAILY 01/13/23 01/13/23 01/13/23 09:00 History mcg (2,000 unit) tablet (Vitamin D3) multivitamin 1 tab PO DAILY 01/13/23 01/13/23 01/13/23 09:00 History rosuvastatin 40 mg tablet 40 mg PO BEDTIME 01/13/23 01/13/23 01/12/23 History Physical Exam Vital Signs and Narrative: Vital Signs: Last Vital Signs Temp 98.6 F 01/13/23 15:50 Pulse 60 06/09/23 15:50 Resp 16 01/13/23 15:50 BP 144/80 H 01/13/23 15:50 Pulse Ox 97 01/13/23 15:50 O2 Del Method Room Air 01/13/23 15:50 BMI result Body Mass Index 27.6 Const: Other: Constitutional: Alert, in no distress, overweight. Mental Status: Oriented to person, place and time. Eyes: Pupils are equal, round and reactive to light. Ear, Nose and Throat: Oropharynx clear, mucous membranes moist. Respiratory: Clear to auscultation. No wheezing, rales or rhonchi. Cardiovascular: S1 S2 regular. No murmurs, rubs or gallops. Gastrointestinal: Abdomen soft, non-tender, non-distended. Normal bowel sounds.? Neurologic: Cranial nerves II-XII grossly intact. No focal neurological deficits. Moves all extremities spontaneously.? Skin: No rashes or lesions.? Musculoskeletal: No cyanosis or clubbing. Psychiatric: Normal mood and affect? Results Labs 01/13/23 16:16 Assessment and Plan (1) NSTEMI (non-ST elevated myocardial infarction): Status: Acute (2) Abnormal EKG: Status: Acute (3) S/P CABG x 3: Status: Acute Plan 72-year-old female with history of coronary disease status post 3 vessel CABG on 12/02/22 and was seen in follow up in cardiology office yesterday and had routine ECG that is shows ischemic changes and subsequently had routine troponin I level that was elevated at 1361. She however has been experiencing any chest pain, SOB of breath, ECG show apical abnormality. She is being admitted for further evaluation and management. NSTEMI post CABG at the end of November 2022, assympotmatic and hemodynamically, DDx: Takotsubo -IV heparin, BB, ASA, Pavix and Statin. -Cardiology to assess for possible coribary angiogram HLD--statin HTN--Metoprolol DVT p heparin Full Admission to span at least 2 midngiths for treatment of acute [place] with IV heparin and close monitoring Discussed with patient, and son Time Spent With Patient Time: Total time managing care of this patient today ____ minutes. Quality Stroke Does the patient have a stroke diagnosis?: No VTE Prior VTE?: No VTE Risk Level:: Medical - moderate - high VTE Device Contraindication: Treatment Not Indicated VTE Drug Contraindication: N/A - Med Ordered
[2023-01-13 16:25] LABS: Partial Thromboplastin Time 29.4 SEC (26.0-36.4)
[2023-01-13 16:42] LABS: Basophils Absolute Auto 0.1 X10*3/uL (0.0-0.2); Eosinophils Percent Auto 0.2 % (0-4); Hematocrit 35.4 % (37.0-47.0); Hemoglobin 11.4 g/dl (12.0-16.0); Imm Gran Abs Auto 0.01 X10*3/uL (0.00-0.03); Imm Gran Pct Auto 0.2 % (0.0-0.4); Lymphocytes Absolute Auto 1.3 X10*3/uL (1.2-4.9); Lymphocytes Percent Auto 25.2 % (20-40); Mean Corpuscular HGB Conc 32.2 g/dl (31.0-35.0); Mean Corpuscular Hemoglobin 28.9 pg (27.0-33.0); Mean Corpuscular Volume 89.8 fL (80.0-98.0); Mean Platelet Volume 10.9 fL (9.4-12.3); Monocytes Absolute Auto 0.6 X10*3/uL (0.1-1.2); Monocytes Percent Auto 11.3 % (2-11); Neutrophils Absolute Auto 3.1 x10*3/uL (2.0-8.3); Neutrophils Percent Auto 62.1 % (45-73); Platelet Count 234 X10*3/uL (160-400); Red Blood Count 3.94 X10*6/uL (4.20-5.50); Red Cell Distribution Width 13.2 % (11.0-16.0)
[2023-01-13 16:43] LABS: Troponin-I High Sensitivity 1416.9 ng/L (<3.5-17.0)
[2023-01-13] MEDS: Heparin Sodium,Porcine/1/2NS 25,000 UNIT/250 ML IV.SOLN 8.48 UNIT IVCONT (16:53)
--- NOTE | 2023-01-13 17:05 | PC.NURSE ---
assumed care of this pt at 1545. report given to this rn by richa hill np. pt had CABG 12/02/22. no recovery issues. per kings chaudhry, pt went to follow up appointment yesterday where her EKG and labs were abnormal suggesting possible stress cardiomyopathy or a graft down. pt was ordered to come to the ED after getting echo today at accident investigator office, that also showed abnormal results. IV was placed in the LAC prior to pt arrival to the ED. labs were drawn and pt was started on heparin drip per oct. pt resting quietly on stretcher in no apparent distress. rr even/unlabored. wctm
--- NOTE | 2023-01-13 17:27 | PHA.MEDREC ---
Pharmacy Consult ? Medication Reconciliation Pharmacy has completed the medication reconciliation. Spoke to patient to confirm meds.
[2023-01-13 17:42] VITALS: BP 126/69; PULSE 62; RESP 8; TEMP 37; O2SAT 97
--- NOTE | 2023-01-13 17:50 | PC.NURSE ---
it was brought to this rn's attention by dr. riggs that the IV access should not be in the same extremity that the graft was taken from. as was stated in previous note, IV access obtained prior to arrival to ED not by this rn. a 22G IV was placed in the pt's RAC by this RN and the heparin drip is going per oct. the pt also stated to this rn that she has a hx of left sided breast cancer where lymph nodes were taken. no BP or venipuncture to the Left upper extremity. sign also posted on monitor.
[2023-01-13 20:20] VITALS: BP 108/63; PULSE 68; RESP 16; O2SAT 93
[2023-01-13 23:17] VITALS: BP 121/64; PULSE 68; RESP 20; TEMP 36.5; O2SAT 94
[2023-01-14 00:28] VITALS: BMI 27.6
[2023-01-14 03:54] VITALS: BP 136/72; PULSE 65; RESP 20; TEMP 36.7; O2SAT 95
[2023-01-14 07:25] LABS: PTT Heparin Drip 49.9 SEC (53-77.9)
[2023-01-14 07:46] VITALS: BP 136/83; PULSE 66; RESP 19; TEMP 36.2; O2SAT 98
[2023-01-14 08:11] LABS: Hematocrit 38.3 % (37.0-47.0); Hemoglobin 12.4 g/dl (12.0-16.0); Mean Corpuscular HGB Conc 32.4 g/dl (31.0-35.0); Mean Corpuscular Hemoglobin 29.2 pg (27.0-33.0); Mean Corpuscular Volume 90.3 fL (80.0-98.0); Mean Platelet Volume 10.7 fL (9.4-12.3); Platelet Count 237 X10*3/uL (160-400); Red Blood Count 4.24 X10*6/uL (4.20-5.50); Red Cell Distribution Width 13.2 % (11.0-16.0); White Blood Count 4.3 X10*3/uL (4.8-10.8)
[2023-01-14] MEDS: Heparin Sodium,Porcine 5,000 UNIT/ML VIAL 2800 UNIT IVPUSH ×2 (08:16→22:16)
[2023-01-14] MEDS: Cholecalciferol (Vitamin D3) 25 MCG TABLET 50 MCG PO (08:17)
[2023-01-14] MEDS: Clopidogrel Bisulfate 75 MG TABLET PO (08:18)
[2023-01-14] MEDS: Metoprolol Tartrate 25 MG TABLET PO ×2 (08:18→22:14)
[2023-01-14] MEDS: Ezetimibe 10 MG TABLET PO (08:18)
[2023-01-14] MEDS: Aspirin Enteric Coated 81 MG TABLET.DR PO (08:19)
[2023-01-14] MEDS: Multivitamin TABLET 1 TAB PO (08:19)
[2023-01-14 08:55] LABS: Troponin-I High Sensitivity 1239.3 ng/L (<3.5-17.0)
--- NOTE | 2023-01-14 10:21 | HO.PM.IMPN ---
Subjective Subjective Date of Service: 01/14/23 Interval History: f/u STEMI, no chest pain no sob Hemodynamically stable Physical Exam Vital Signs: Vital Signs: Last Vital Signs Temp 97.1 F 01/14/23 07:46 Pulse 66 01/14/23 07:46 Resp 19 01/14/23 07:46 BP 136/83 01/14/23 07:46 Pulse Ox 98 01/14/23 07:46 O2 Del Method Room Air 01/14/23 07:46 BMI result Body Mass Index 27.6 Const: Other: General: AO X 3, no acute distress Resp: CTA bilateral CVS: S1,S2,RRR GI: +BS, NT, no distention Skin: No rash Neuro: motor grossly intact Psych: appropriate affect Objective Data Active Medications Acetaminophen (Acetaminophen 325 Mg Tablet) 650 mg PO Q6H PRN PRN Reason: Pain, Mild (Pain Scale 1-3) Alprazolam (Alprazolam 0.25 Mg Tablet) 0.25 mg PO BID PRN PRN Reason: anxiety Aspirin (Aspirin Enteric Coated 81 Mg Tablet.) 81 mg PO DAILY [facility] Last Admin: 01/14/23 08:19 Dose: 81 mg Documented By: DOLORES Atorvastatin Calcium (Atorvastatin Calcium 80 Mg Tablet) 80 mg PO BEDTIME [facility] Clopidogrel Bisulfate (Clopidogrel Bisulfate 75 Mg Tablet) 75 mg PO DAILY [facility] Last Admin: 01/14/23 08:18 Dose: 75 mg Documented By: DOLORES Ezetimibe (Ezetimibe 10 Mg Tablet) 10 mg PO DAILY [facility] Last Admin: 01/14/23 08:18 Dose: 10 mg Documented By: DOLORES Heparin Sodium (Porcine) (Heparin Sodium,Porcine 5,000 Unit/Ml Vial) 2,800 unit 40 unit/kg (2800 unit) IVPUSH PROTOCOL BOLUS PRN; Protocol PRN Reason: 40 unit/kg - Heparin Protocol Last Admin: 01/14/23 08:16 Dose: 2,800 unit Documented By: DOLORES Heparin Sodium (Porcine) (Heparin Sodium,Porcine 5,000 Unit/Ml Vial) 5,700 unit 80 unit/kg (5700 unit) IVPUSH PROTOCOL BOLUS PRN; Protocol PRN Reason: 80 unit/kg - Heparin Protocol Heparin Sodium/Sodium Chloride (Heparin Sodium,Porcine/1/2ns) 25,000 unit in 250 mls @ 0 mls/hr IVCONT .Q0M [facility]; Protocol Last Titration: 01/14/23 07:54 Dose: 10 units/kg/hr, 7.07 mls/hr Documented By: ACE Co-signed By: DOLORES Magnesium Hydroxide (Milk Of Magnesia 30 Ml Oral.Susp) 30 ml PO DAILY PRN PRN Reason: Constipation Melatonin (Melatonin 3 Mg Tablet) 6 mg PO BEDTIME PRN PRN Reason: Insomnia Metoprolol Tartrate (Metoprolol Tartrate 25 Mg Tablet) 25 mg PO BID [facility]; Protocol Last Admin: 01/14/23 08:18 Dose: 25 mg Documented By: DOLORES Multivitamins/Vitamin C (Multivitamin Tablet) 1 tab PO DAILY [facility] Last Admin: 01/14/23 08:19 Dose: 1 tab Documented By: DOLORES Nitroglycerin (Nitroglycerin 0.4 Mg Tab.Subl) 0.4 mg SUBLINGUAL Q5MX3 PRN PRN Reason: Chest Pain Ondansetron HCl (Ondansetron Hcl 4 Mg/2 Ml Vial) 4 mg IVPUSH Q8H PRN PRN Reason: Nausea and Vomiting Sodium Chloride (0.9 % Sodium Chloride Flush 3 Ml Syringe) 3 ml IVFLUSH QSHIFT [facility] Last Admin: 01/14/23 10:17 Dose: Not Given Documented By: ACE Non-Admin Reason: Previously Administered Trazodone HCl (Trazodone Hcl 50 Mg Tablet) 50 mg PO BEDTIME [facility] Vitamin D (Cholecalciferol (Vitamin D3) 25 Mcg Tablet) 50 mcg PO DAILY [facility] Last Admin: 01/14/23 08:17 Dose: 50 mcg Documented By: DOLORES Labs 01/14/23 07:51 Labs: Laboratory Results - last 24 hr 01/13/23 01/13/23 01/13/23 16:06 16:06 16:16 MCV 89.8 MCH 28.9 MCHC 32.2 RDW 13.2 Plt Count 234 MPV 10.9 Immature Gran % (Auto) 0.2 Neut % (Auto) 62.1 Lymph % (Auto) 25.2 [place] % (Auto) 11.3 H Eos % (Auto) 0.2 Baso % (Auto) 1.0 Lymph # (Auto) 1.3 [place] # (Auto) 0.6 Eos # (Auto) 0.0 Baso # (Auto) 0.1 Abs Immat Gran (auto) 0.01 Absolute Neuts (auto) 3.1 Absolute Nucleated RBC 0.000 Nucleated RBC % (auto) 0.0 PT 11.9 INR 1.0 APTT 29.4 aPTT Heparin Protocol Troponin I High Sens 1416.9 H* 01/13/23 01/14/23 01/14/23 23:45 01:30 06:31 MCV MCH MCHC RDW Plt Count MPV Immature Gran % (Auto) Neut % (Auto) Lymph % (Auto) [place] % (Auto) Eos % (Auto) Baso % (Auto) Lymph # (Auto) [place] # (Auto) Eos # (Auto) Baso # (Auto) Abs Immat Gran (auto) Absolute Neuts (auto) Absolute Nucleated RBC Nucleated RBC % (auto) PT INR APTT aPTT Heparin Protocol 118.0 H* 63.0 D 49.9 L D Troponin I High Sens 01/14/23 01/14/23 07:51 07:51 MCV 90.3 MCH 29.2 MCHC 32.4 RDW 13.2 Plt Count 237 MPV 10.7 Immature Gran % (Auto) Neut % (Auto) Lymph % (Auto) [place] % (Auto) Eos % (Auto) Baso % (Auto) Lymph # (Auto) [place] # (Auto) Eos # (Auto) Baso # (Auto) Abs Immat Gran (auto) Absolute Neuts (auto) Absolute Nucleated RBC 0.000 Nucleated RBC % (auto) 0.0 PT INR APTT aPTT Heparin Protocol Troponin I High Sens 1239.3 H* Assessment and Plan (1) NSTEMI (non-ST elevated myocardial infarction): Status: Acute Plan 72-year-old female with history of coronary disease status post 3 vessel CABG on 12/02/22 and was seen in follow up in cardiology office yesterday and had routine ECG that is shows ischemic changes and subsequently had routine troponin I level that was elevated at 1361. She however has been experiencing any chest pain, SOB of breath, ECG show apical abnormality. She is being admitted for further evaluation and management. NSTEMI post CABG at the end of November 2022, assympotmatic and hemodynamically, DDx: Takotsubo -IV heparin, BB, ASA, Pavix and Statin. -Cardiology is recommending transfering to [facility] for cath tomorrow HLD--statin HTN--Metoprolol anxiety xanax DVT p heparin need for inpt: Time Spent With Patient Time: Total time managing care of this patient today ____ minutes. Quality Stroke Does the patient have a stroke diagnosis?: No VTE Prior VTE?: No VTE Risk Level:: Medical - moderate - high VTE Device Contraindication: Treatment Not Indicated VTE Drug Contraindication: N/A - Med Ordered
--- NOTE | 2023-01-14 11:13 | P.CONCA_ITS ---
History of Present Illness History of Present Illness Date of Service: 01/14/23 Chief complaint: NSTEMI Narrative: 72 female with previous CABG with WATSON to LAD and graft to dominant RCA. She was seen in the office and ECG showed anterolateral T wave inversions. Troponins 1500. She was admitted and started on heparin gtt for NSTEMI. Echo showing apical wall motion. She has been under a lot of stress as her was diagnosed with myeloma. She was quite tearful and upset throughout the interview. [facility] Past Medical History Medical History Coronary artery disease COVID-19 vaccine series completed Fatty liver Fracture of distal phalanx of finger of right hand GERD (gastroesophageal reflux disease) History of breast cancer Hypercholesterolemia Hypertension Shingles Family History Family History Father CHF (congestive heart failure) CVD (cardiovascular disease) Mother Myocardial infarction CVD (cardiovascular disease) Brother Myocardial infarction Surgical History Surgical History H/O colonoscopy History of angioplasty History of lumpectomy of left breast History of tubal ligation S/P CABG x 3 Social History Social History Household Members: Spouse Housing: House Do you presently have visiting nurse or other home services: Yes Alcohol intake: current Alcohol intake frequency: a few times a week Alcohol type: wine Patient Tobacco Use Status: Never used Tobacco Smoked in Last 30 Days: No e-Cigarette/Vaping Use: Never Used Second Hand Smoke Exposure: No Use of substances other than those prescribed or required for medical reasons: No Currently Displaying Signs/Symptoms of Drug Intoxication Withdrawal: No Have you been hit, kicked, punched, or otherwise hurt by someone within the past year? If so, by whom?: No Do you feel safe in your current relationship?: Yes Is there a partner from a previous relationship who is making you feel unsafe now?: No Are you made to feel afraid or neglected: No Advance Directives: No Advance Directives Information Provided: No Do you have thoughts of harming others: None Do you have a plan to hurt others: No Plan Recently lost weight without trying: Yes How much weight loss: 14-23 pounds Eating poorly because of decreased appetite: No Nutrition screen score: 4 Nutrition Risks: No Nutritional Risk Patient : No : No Poor oral hygiene: No Current occupational status: retired Cognitive needs: No Hearing needs: No Vision needs: Yes Meds Allergies Allergy/AdvReac Type Severity Reaction Status Date / Time lisinopril Allergy Severe anaphylaxis Verified 01/12/23 15:34 amoxicillin Allergy Intermediate rash Verified 01/12/23 15:34 atenolol Allergy Intermediate rash Verified 01/12/23 15:34 Sulfa (Sulfonamide Allergy Intermediate rash Verified 01/12/23 15:34 Antibiotics) Active Medications: Current Medications Acetaminophen (Acetaminophen 325 Mg Tablet) 650 mg PO Q6H PRN PRN Reason: Pain, Mild (Pain Scale 1-3) Alprazolam (Alprazolam 0.25 Mg Tablet) 0.25 mg PO BID PRN PRN Reason: anxiety Aspirin (Aspirin Enteric Coated 81 Mg Tablet.Dr) 81 mg PO DAILY [facility] Last Admin: 01/14/23 08:19 Dose: 81 mg Atorvastatin Calcium (Atorvastatin Calcium 80 Mg Tablet) 80 mg PO BEDTIME [facility] Clopidogrel Bisulfate (Clopidogrel Bisulfate 75 Mg Tablet) 75 mg PO DAILY [facility] Last Admin: 01/14/23 08:18 Dose: 75 mg Ezetimibe (Ezetimibe 10 Mg Tablet) 10 mg PO DAILY [facility] Last Admin: 01/14/23 08:18 Dose: 10 mg Heparin Sodium (Porcine) (Heparin Sodium,Porcine 5,000 Unit/Ml Vial) 2,800 unit 40 unit/kg (2800 unit) IVPUSH PROTOCOL BOLUS PRN; Protocol PRN Reason: 40 unit/kg - Heparin Protocol Last Admin: 01/14/23 08:16 Dose: 2,800 unit Heparin Sodium (Porcine) (Heparin Sodium,Porcine 5,000 Unit/Ml Vial) 5,700 unit 80 unit/kg (5700 unit) IVPUSH PROTOCOL BOLUS PRN; Protocol PRN Reason: 80 unit/kg - Heparin Protocol Heparin Sodium/Sodium Chloride (Heparin Sodium,Porcine/1/2ns) 25,000 unit in 250 mls @ 0 mls/hr IVCONT .Q0M [facility]; Protocol Last Titration: 01/14/23 07:54 Dose: 10 units/kg/hr, 7.07 mls/hr Magnesium Hydroxide (Milk Of Magnesia 30 Ml Oral.Susp) 30 ml PO DAILY PRN PRN Reason: Constipation Melatonin (Melatonin 3 Mg Tablet) 6 mg PO BEDTIME PRN PRN Reason: Insomnia Metoprolol Tartrate (Metoprolol Tartrate 25 Mg Tablet) 25 mg PO BID [facility]; Protocol Last Admin: 01/14/23 08:18 Dose: 25 mg Multivitamins/Vitamin C (Multivitamin Tablet) 1 tab PO DAILY [facility] Last Admin: 01/14/23 08:19 Dose: 1 tab Nitroglycerin (Nitroglycerin 0.4 Mg Tab.Subl) 0.4 mg SUBLINGUAL Q5MX3 PRN PRN Reason: Chest Pain Ondansetron HCl (Ondansetron Hcl 4 Mg/2 Ml Vial) 4 mg IVPUSH Q8H PRN PRN Reason: Nausea and Vomiting Sodium Chloride (0.9 % Sodium Chloride Flush 3 Ml Syringe) 3 ml IVFLUSH QSHIFT [facility] Last Admin: 01/14/23 10:17 Dose: Not Given Trazodone HCl (Trazodone Hcl 50 Mg Tablet) 50 mg PO BEDTIME [facility] Vitamin D (Cholecalciferol (Vitamin D3) 25 Mcg Tablet) 50 mcg PO DAILY [facility] Last Admin: 01/14/23 08:17 Dose: 50 mcg Home Medications Medication Instructions Recorded Confirmed Last Taken Type aspirin 81 mg tablet,delayed 81 mg PO DAILY 06/22/20 01/13/23 01/13/23 09:00 History release (Adult Aspirin Regimen) cholecalciferol (vitamin D3) 50 50 mcg PO DAILY 01/13/23 01/13/23 01/13/23 09:00 History mcg (2,000 unit) tablet (Vitamin D3) multivitamin 1 tab PO DAILY 01/13/23 01/13/23 01/13/23 09:00 History rosuvastatin 40 mg tablet 40 mg PO BEDTIME 01/13/23 01/13/23 01/12/23 History Physical Exam Vital Signs: Vital Signs: Last Vital Signs Temp 97.1 F 01/14/23 07:46 Pulse 66 01/14/23 07:46 Resp 19 01/14/23 07:46 BP 136/83 01/14/23 07:46 Pulse Ox 98 01/14/23 07:46 O2 Del Method Room Air 01/14/23 07:46 BMI result Body Mass Index 27.6 GENERAL APPEARANCE: in no acute distress, pleasant. NECK: no carotid bruit, no jugular venous distention. SKIN: Midline sternotomy scar. HEART: no murmurs, regular rate and rhythm. LUNGS: clear to auscultation bilaterally. ABDOMEN: soft, nontender. EXTREMITIES: no edema. PERIPHERAL PULSES: equal. NEUROLOGIC: No gross deficits, AAO X 3 Objective Labs and Meds 01/14/23 07:51 Lab results: Laboratory Results - last 24 hr 01/13/23 01/13/23 01/13/23 16:06 16:06 16:16 WBC 5.0 RBC 3.94 L Hgb 11.4 L Hct 35.4 L MCV 89.8 MCH 28.9 MCHC 32.2 RDW 13.2 Plt Count 234 MPV 10.9 Immature Gran % (Auto) 0.2 Neut % (Auto) 62.1 Lymph % (Auto) 25.2 [place] % (Auto) 11.3 H Eos % (Auto) 0.2 Baso % (Auto) 1.0 Lymph # (Auto) 1.3 [place] # (Auto) 0.6 Eos # (Auto) 0.0 Baso # (Auto) 0.1 Abs Immat Gran (auto) 0.01 Absolute Neuts (auto) 3.1 Absolute Nucleated RBC 0.000 Nucleated RBC % (auto) 0.0 PT 11.9 INR 1.0 APTT 29.4 aPTT Heparin Protocol Troponin I High Sens 1416.9 H* 01/13/23 01/14/23 01/14/23 23:45 01:30 06:31 WBC RBC Hgb Hct MCV MCH MCHC RDW Plt Count MPV Immature Gran % (Auto) Neut % (Auto) Lymph % (Auto) [place] % (Auto) Eos % (Auto) Baso % (Auto) Lymph # (Auto) [place] # (Auto) Eos # (Auto) Baso # (Auto) Abs Immat Gran (auto) Absolute Neuts (auto) Absolute Nucleated RBC Nucleated RBC % (auto) PT INR APTT aPTT Heparin Protocol 118.0 H* 63.0 D 49.9 L D Troponin I High Sens 01/14/23 01/14/23 07:51 07:51 WBC 4.3 L RBC 4.24 Hgb 12.4 Hct 38.3 MCV 90.3 MCH 29.2 MCHC 32.4 RDW 13.2 Plt Count 237 MPV 10.7 Immature Gran % (Auto) Neut % (Auto) Lymph % (Auto) [place] % (Auto) Eos % (Auto) Baso % (Auto) Lymph # (Auto) [place] # (Auto) Eos # (Auto) Baso # (Auto) Abs Immat Gran (auto) Absolute Neuts (auto) Absolute Nucleated RBC 0.000 Nucleated RBC % (auto) 0.0 PT INR APTT aPTT Heparin Protocol Troponin I High Sens 1239.3 H* Imaging Radiologist's impression: Impressions Chest X-Ray 01/13/23 17:03 IMPRESSION: 1. No acute cardiopulmonary findings. 2. Nonspecific calcific bodies projecting over the region of the left inferior breast, recommend correlation with physical examination and if the patient is due follow-up with mammographic examinations. Assessment and Plan (1) NSTEMI (non-ST elevated myocardial infarction): Status: Acute Plan 72 female presenting with NSTEMI, She had CABG 12/02/[address] Morrison, SHIRLEY to LAD, Radial to 1st diagonal of LAD, GSV LV branch of RCA. ECG has anterolateral TWI. Echo showing apical akinesis. Differentials NSTEMI vs Takotsubo. c/w Heparin gtt, ASA and Plavix. Will transfer tomorrow for cath on Monday. Thank you for allowing me to participate in the care of your patient. Please feel free to contact me if you have any questions. Time Spent With Patient Time: Total time managing care of this patient today ____ minutes. Procedures Date of Service Date of Service: 01/14/23
[2023-01-14 12:00] VITALS: BP 134/71; PULSE 61; RESP 20; TEMP 36.1; O2SAT 95
[2023-01-14 13:03] LABS: PTT Heparin Drip 96.7 SEC (53-77.9)
--- NOTE | 2023-01-14 15:15 | MHC.CM.PN ---
PT REPORTS SHE LIVES WITH HER AND IS INDEPENDENT WITH CARE SHE IS ACTIVE WITH [facility] SINCE A RECENT OPEN HEART SURGERY SHE DENIES USING ANY DME SHE SAYS SHE HAS A HCP, COPY REQUESTED PCP: [facility] DELIVERED CURRENT DC PLAN IS HOME WITH [facility] OF [facility]IA FAMILY TRANSPORT
[2023-01-14 16:00] VITALS: BP 130/75; PULSE 52; RESP 17; TEMP 36.7; O2SAT 96
[2023-01-14] MEDS: Heparin Sodium,Porcine/1/2NS 25,000 UNIT/250 ML IV.SOLN 4.95 UNIT IVCONT (18:07)
[2023-01-14 19:30] VITALS: BP 115/64; PULSE 67; RESP 18; TEMP 36.8; O2SAT 97
[2023-01-14 20:28] LABS: PTT Heparin Drip 45.6 SEC (53-77.9)
[2023-01-14] MEDS: Atorvastatin Calcium 80 MG TABLET PO (22:14)
[2023-01-14] MEDS: Acetaminophen 325 MG TABLET 650 MG PO (22:14)
[2023-01-14] MEDS: traZODone HCL 50 MG TABLET PO (22:14)
[2023-01-14 23:43] VITALS: BP 110/60; PULSE 58; RESP 18; TEMP 36.7; O2SAT 96
[2023-01-15 03:47] VITALS: BP 123/71; PULSE 54; RESP 16; TEMP 36.6; O2SAT 94
[2023-01-15 05:14] LABS: PTT Heparin Drip 87.1 SEC (53-77.9)
[2023-01-15 08:00] VITALS: BP 164/83; PULSE 63; RESP 19; TEMP 36.4; O2SAT 99
--- NOTE | 2023-01-15 09:31 | PM.DS ---
DS: Providers Provider Date of Service: 01/15/23 Date of admission: 01/13/23 17:04 Primary care physician: Sourav Dela Cruz MD Consults: 01/14/23 07:31 Consult to Cardiology Routine Consulting Provider: [facility] Cardiovascular Services Reason for consultation: NSTEMI Has provider been notified: Yes DS: Diagnosis Discharge Diagnosis (1) NSTEMI (non-ST elevated myocardial infarction): Status: Acute DS: Summary Hospital Course Hospital Course: Hospital course Chief Complaint: Abnormal ECG and elevated troponi 72-year-old female with history of coronary disease status post 3 vessel CABG on 12/02/[address] Morrison with WATSON to LAD and graft to dominant RCA. She was seen in follow up in cardiology (Dr. Tadeo) office on 01/12/23 and had routine ECG that showed ischemic changes ( anterolateral T wave inversion), the next day troponin I level was elevated at 1361. She however has not been experiencing any chest pain or SOB of breath, and echo on 01/13/23 showed Normal left ventricular cavity size.? There is mildly increased left ventricular wall thickness.? The left ventricular systolic? function is mildly decreased.? The visually estimated ejection ? fraction is between 40-45%- The entire apex is akinetic. ? ?She was brought to the hospital, admitted and started on IV heparin in addition to ASA, Plavix, Lipitor and Metoprolol. She remains chest pain free, no sob and hemodynamically stable. Cardiology advises transfer to [facility] for cardiac catherization planned for 01/16/23? Final diagnoses NSTEMI (ACS) HTN HLD CAD s/p 3V CABG HLD Time Spent with Patient Time attestation: Total time managing care of this patient today ____ minutes. Discharge coordination time: Greater than 30 minutes Quality: Safe Use of Opioids Does Pt have an Active Cancer Diagnosis on the Problem List?: No Quality: Stroke Does the patient have a stroke diagnosis?: No Physical Exam Vital Signs: Vital Signs: Last Vital Signs Temp 97.6 F 01/15/23 08:00 Pulse 63 01/15/23 08:00 Resp 19 01/15/23 08:00 BP 164/83 H 01/15/23 08:00 Pulse Ox 99 01/15/23 08:00 O2 Del Method Room Air 01/15/23 08:00 BMI result Body Mass Index 27.6 DS: Data Data Completed and Pending Labs on day of discharge: Laboratory Results - last 24 hr 01/14/23 01/14/23 01/15/23 12:38 20:15 04:34 aPTT Heparin Protocol 96.7 H D 45.6 L D 87.1 H D Discharge Plan Discharge Anticipated Discharge Date/Time: 01/15/23 09:26 Patient Disposition: Xfer Acute Care Hospital Discharge Diagnosis: NSTEMI Referrals: Po,Sourav Hart MD [Primary Care Provider] - 1 Week Discharge Medications: New heparin(porcine) in 0.45% NaCl 25,000 unit/250 mL Parenteral Solution 25,000 unit continuous IV infusion .Q0M Qty: 6000 0RF Rx Instructions: Follow heparin protocol heparin (porcine) 5,000 unit/mL Solution 2,800 unit IVPUSH PROTOCOL BOLUS PRN (Reason: 40 Unit/Kg - Heparin Protocol) Qty: 250 0RF Rx Instructions: Follow Heparin protocol heparin (porcine) 5,000 unit/mL Solution 5,700 unit IVPUSH PROTOCOL BOLUS PRN (Reason: 80 Unit/Kg - Heparin Protocol) Qty: 250 0RF Rx Instructions: Follow Heparin protocol Continued trazodone 50 mg tablet 50 mg PO BEDTIME Qty: 90 2RF clopidogrel 75 mg tablet 75 mg PO DAILY Qty: 90 3RF ezetimibe 10 mg tablet 10 mg PO DAILY Qty: 90 3RF alprazolam 0.25 mg tablet 0.25 mg PO BID PRN (Reason: anxiety) Qty: 20 0RF multivitamin Tablet 1 tab PO DAILY cholecalciferol (vitamin D3) [Vitamin D3] 50 mcg (2,000 unit) Tablet 50 mcg PO DAILY rosuvastatin 40 mg tablet 40 mg PO BEDTIME aspirin [Adult Aspirin Regimen] 81 mg tablet,delayed release (DR/EC) 81 mg PO DAILY metoprolol tartrate 25 mg tablet 25 mg PO BID Qty: 180 3RF Discharge Orders: Discharge Order (Routine); Ordered 01/15/23 Ordered By: Scott Mcdonald Diet: Advance to usual diet Activity on Discharge: As tolerated Stand Alone Forms: Patient Portal Discharge page Care Plan Goals: To rule ocluded coronary graft Health Concerns: NSTEMI (heart attack) recent CABG Plan of Treatment: Going to [facility] for cardiac catherization continue Heparin and adjust level per [facility] Heparin protocol continue ASA, Plavix, Lipitor, and Metoprolol for medical management Assessment: april mack
--- NOTE | 2023-01-15 09:33 | PM.PNCARD ---
Subjective Subjective Date of Service: 01/15/23 Interval history: Seen examined at bedside. Clinically stable. Will be transferred to [facility] for potential cardiac catheterization tomorrow. Physical Exam Vital Signs: Last Vital Signs Temp 97.6 F 01/15/23 08:00 Pulse 63 01/15/23 08:00 Resp 19 01/15/23 08:00 BP 164/83 H 01/15/23 08:00 Pulse Ox 99 01/15/23 08:00 O2 Del Method Room Air 01/15/23 08:00 BMI result Body Mass Index 27.6 GENERAL APPEARANCE: in no acute distress, pleasant. NECK: no carotid bruit, no jugular venous distention. SKIN: no suspicious lesions, warm and dry. HEART: no murmurs, regular rate and rhythm. LUNGS: clear to auscultation bilaterally. ABDOMEN: soft, nontender. EXTREMITIES: no edema. PERIPHERAL PULSES: equal. NEUROLOGIC: No gross deficits, AAO X 3 Objective Labs and Meds 01/14/23 07:51 Lab results: Laboratory Results - last 24 hr 01/14/23 01/14/23 01/15/23 12:38 20:15 04:34 aPTT Heparin Protocol 96.7 H D 45.6 L D 87.1 H D Progress Note: A&P Assessment and plan (1) NSTEMI (non-ST elevated myocardial infarction): Status: Acute Plan Pleasant 72 year female with 3 vessel bypass surgery in November 2022 presenting for NSTEMI. She is on heparin drip, aspirin Plavix. Clinically stable. EF is 40 45%. She is being transferred to [facility] today for potential cardiac catheterization tomorrow. NPO after midnight. Thank you for allowing me to participate in the care of your patient. Please feel free to contact me if you have any questions. Time Spent With Patient Time: Total time managing care of this patient today ____ minutes. Progress Note: Quality Stroke Does the patient have a stroke diagnosis?: No Procedures Date of Service Date of Service: 01/15/23
[2023-01-15] MEDS: Aspirin Enteric Coated 81 MG TABLET.DR PO (09:37)
[2023-01-15] MEDS: Multivitamin TABLET 1 TAB PO (09:37)
[2023-01-15] MEDS: Clopidogrel Bisulfate 75 MG TABLET PO (09:37)
[2023-01-15] MEDS: Ezetimibe 10 MG TABLET PO (09:37)
[2023-01-15] MEDS: Cholecalciferol (Vitamin D3) 25 MCG TABLET 50 MCG PO (09:37)
[2023-01-15] MEDS: Metoprolol Tartrate 25 MG TABLET PO (09:38)
--- NOTE | 2023-01-15 10:47 | MHC.CM.PN ---
PT WILL TRANSFER TO [facility] TODAY VIA AMBULANCE
== END 2023-01-15 10:53 | disposition short-term general hospital (02) | DRG 282 ==
LOC: HO.ED 16:40 → HO.EDOVER 17:08 → HO.IMC 19:13
PROVIDERS: Internal Medicine; Admitting Provider Internal Medicine; Emergency Provider Student in an Organized Health Care Education/Training Program; PCP Internal Medicine; Visit Provider Internal Medicine
DX: I21.4 Non-ST elevation (NSTEMI) myocardial infarction (principal); I25.10 Atherosclerotic heart disease of native coronary artery without angina pectoris; K21.9 Gastro-esophageal reflux disease without esophagitis; F41.9 Anxiety disorder, unspecified; E78.00 Pure hypercholesterolemia, unspecified; Z95.1 Presence of aortocoronary bypass graft; Z88.0 Allergy status to penicillin; Z88.2 Allergy status to sulfonamides; Z79.899 Other long term (current) drug therapy
CPT/HCPCS: 36415; 71045; 80053; 83735; 84484; 85025; 85027; 85610; 85730; 93005; 93306; 99212; 99285; J1643; Q9957

== ENCOUNTER 2023-03-22 14:20 | Outpatient (AMB) | payer MEDICARE, SELFPAY ==
--- NOTE | 2023-03-22 14:22 | MHC.OFFVIS ---
Intake Vital Signs 03/22/23 14:23 Height 5 ft 3 in Weight 156 lb 15.506 oz BMI 27.8 BP 142/86 H Blood Pressure Location Lt brachial Position Sitting Pulse 56 Pulse Source Pulse Oximeter Intake Visit Reasons: 2 mth f/up Intake Note: 2 month follow up. Diamond Powder Mixer Required: No Accompanied by: Self / Same As Patient Allergies lisinopril Allergy (Severe, Verified 03/22/23 14:30) anaphylaxis amoxicillin Allergy (Intermediate, Verified 03/22/23 14:30) rash atenolol Allergy (Intermediate, Verified 03/22/23 14:30) rash Sulfa (Sulfonamide Antibiotics) Allergy (Intermediate, Verified 03/22/23 14:30) rash Medication List - Last Reconciled 03/22/23 by Jordan Tadeo MD aspirin (Adult Aspirin Regimen) 81 mg PO DAILY cholecalciferol (vitamin D3) (Vitamin D3) 50 mcg PO DAILY clopidogrel 75 mg PO DAILY ezetimibe 10 mg PO DAILY lorazepam 0.5 mg PO BEDTIME PRN 30 days metoprolol tartrate 25 mg PO BID multivitamin 1 tab PO DAILY rosuvastatin 40 mg PO BEDTIME trazodone 50 mg PO BEDTIME HPI HPI Comments History of Present Illness Details 72 year old female here for follow-up. She has background of CAD s/p CABG. Recent admission to the hospital with NSTEMI in the setting of his significant stress due to 's diagnosis of multiple myeloma he was diagnosed with a cardiomyopathy with EF of 44% heart catheterization did not show any significant change in any of the grafts were open She is returning for follow-up today. He we significantly depressed and tearful. She is having significant adjustment issues with her 's health issues at this point. She was given benzodiazepine but she feels that they did not make any significant improvement in symptoms. She is very anxious. Denying any other issues. [facility] Medical History (Updated 01/23/23 @ 16:23 by Sourav Dela Cruz MD) Coronary artery disease COVID-19 vaccine series completed Fatty liver Fracture of distal phalanx of finger of right hand GERD (gastroesophageal reflux disease) History of breast cancer Hypercholesterolemia Hypertension Shingles Surgical History H/O colonoscopy History of angioplasty History of lumpectomy of left breast History of tubal ligation S/P CABG x 3 Family History Father CHF (congestive heart failure) CVD (cardiovascular disease) Mother Myocardial infarction CVD (cardiovascular disease) Brother Myocardial infarction Social History Household Members: Spouse Housing: House Do you presently have visiting nurse or other home services: Yes Alcohol intake: current Alcohol intake frequency: a few times a week Alcohol type: wine Patient Tobacco Use Status: Never used Tobacco e-Cigarette/Vaping Use: Never Used Second Hand Smoke Exposure: No service: No Current occupational status: retired Cognitive needs: No Hearing needs: No Vision needs: Yes Review of Systems Const Denies weakness ENT Denies dizziness Card Denies chest pain, Denies chest pain with activity, Denies syncope, Denies rapid heart rate, Denies pedal edema, Denies edema, Denies leg edema, Denies lightheadedness, Denies palpitations, Denies dyspnea, Denies dyspnea on exertion and Denies orthopnea Resp Denies cough, Denies dyspnea and Denies dyspnea on exertion GI Denies hematochezia and Denies change in stool character Musc Denies abnormal gait, Denies muscle cramps, Denies muscle weakness, Denies numbness, Denies radiating pain into limb and Denies tingling Neuro Denies abnormal gait, Denies dizziness, Denies syncope, Denies numbness, Denies tingling and Denies weakness Endo Denies palpitations Physical Exam Vital Signs: Last Vital Signs Pulse 56 03/22/23 14:23 BP 142/86 H 03/22/23 14:23 BMI result Body Mass Index 27.8 GENERAL APPEARANCE: in no acute distress, Tearful and stressed. NECK: no carotid bruit, no jugular venous distention. SKIN: no suspicious lesions, warm and dry. HEART: no murmurs, regular rate and rhythm. LUNGS: clear to auscultation bilaterally. ABDOMEN: soft, nontender. EXTREMITIES: no edema. PERIPHERAL PULSES: equal. NEUROLOGIC: No gross deficits, AAO X 3 Assessment & Plan Assessment & Plan (1) Takotsubo cardiomyopathy: Code(s): I51.81 - Takotsubo syndrome (2) S/P CABG x 3: Comment: 12/02/22 with SHIRLEY Cruz to LAD, Radial to 1st diagonal of LAD, GSV LV branch of RCA Code(s): Z95.1 - Presence of aortocoronary bypass graft (3) Generalized anxiety disorder: Code(s): F41.1 - Generalized anxiety disorder Plan 72-year-old female who is here for follow-up he is status post bypass surgery this point. She presented to hospital with T-wave changes and NSTEMI and was diagnosed with takotsubo cardiomyopathy. EF is 40-45% we will repeat echocardiography. Clinically stable from cardiovascular point of view. She continues to have significant stress and is depressed and anxious. I think she is having significant adjustment issues with her diagnosis of myeloma. She will benefit from seeing a psychiatrist. She thinks benzodiazepines are not working for her. Please consider adding antidepressant into Psychiatry. Thank you for allowing me to participate in the care of your patient. Please feel free to contact me if you have any questions. Medications: Discontinued rosuvastatin 40 mg PO DAILY 90 tabs 3RF E78.00 - Pure hypercholesterolemia, unspecified Coding Level of Care Code Est Pt Level 4 (91629) Diagnoses Takotsubo cardiomyopathy I51.81 S/P CABG x 3 Z95.1 Generalized anxiety disorder F41.1
[2023-03-22 14:23] VITALS: BP 142/86; PULSE 56; BMI 27.8
== END 2023-03-22 14:54 | disposition home or self-care (01) ==
PROVIDERS: PCP Internal Medicine; Referring Provider Internal Medicine; Visit Provider Internal Medicine Cardiovascular Disease
DX: I51.81 Takotsubo syndrome (principal); Z95.1 Presence of aortocoronary bypass graft; F41.1 Generalized anxiety disorder
CPT/HCPCS: 99214

== ENCOUNTER → 2023-03-22 14:20 | Outpatient (BNVA) | payer MEDICARE, SELFPAY | PROVIDERS: PCP Internal Medicine; Referring Provider Internal Medicine; Visit Provider Internal Medicine Cardiovascular Disease | DX: I51.81 Takotsubo syndrome (principal); I25.10 Atherosclerotic heart disease of native coronary artery without angina pectoris; I10 Essential (primary) hypertension; F41.1 Generalized anxiety disorder; Z95.1 Presence of aortocoronary bypass graft | CPT/HCPCS: 99212 ==

== ENCOUNTER → 2023-04-03 10:45 | Outpatient (REF) | payer MEDICARE, SELFPAY ==
--- NOTE | 2023-04-03 10:49 | CA_ITS ---
Transthoracic Echocardiogram Patient (Last, First, Middle): Alison Mary, Gender: Female Date of : 1950 Age: 72 Procedure Date: 04/03/2023 Procedure Type: Transthoracic Echocardiogram Location: OP Height: 162.56 cm Weight: 68.95 kg BSA: 1.74 m2 Heart Rate: 49 bpm BP: 155 / 80 mmHg Bar Machine Operator: GRACIA Referring MD: Jordan Tadeo MD Symptoms: I51.81 - Takotsubo syndrome Study Quality: Adequate/Contrast/Limited ECG Rhythm: Bradycardia Conclusions: - Normal left ventricular cavity size. The left ventricular systolic function is low normal. The visually estimated ejection fraction is between 50-55%. - There is paradoxical septal motion consistent with a left bundle branch block. Findings Procedure Information Contrast agent, definity, is being given per protocol without apparent complications. Left Ventricle Normal left ventricular cavity size. The left ventricular systolic function is low normal. The visually estimated ejection fraction is between 50-55%. There is paradoxical septal motion consistent with a left bundle branch block. Diastolic function is indeterminate on the basis of available data. Right Ventricle Normal right ventricular cavity size and systolic function. Venous The inferior vena cava is normal in size and collapses greater than 50% with inspiration. Pericardium/Pleural There is no evidence of pericardial effusion. Prior Study Comparison Changes noted compared to prior study dated: 01/13/2023. EF 50-55%, apical wall motion improved, septal dyssynchrony due to LBBB. Measurements 2D Linear Measurements LVOT Diam: 1.90 3.0+(-)1.3 cm 2D Systolic Function EF 4C: 55.00 >55% EF 2C: 58.80 >55% EF BiP: 56.30 >55% LVOT LVOT Pk Shlomo: 0.87 LVOT Mn Shlomo: 0.61 LVOT VTI: 0.23 LVOT Pk Grad: 3.00 LVOT Mn Grad: 2.00 LVOT Diam: 1.90 LVOT Area: 2.84 Updated in Other Vendor System with Status of Final Jordan Tadeo MD electronically signed on 04/04/2023 1:15:34 PM with status of Final
== END ==
LOC: HO.CARD 10:45
PROVIDERS: PCP Internal Medicine; Visit Provider Internal Medicine Cardiovascular Disease
DX: I51.81 Takotsubo syndrome (principal)
CPT/HCPCS: 93308; Q9957

== ENCOUNTER → 2023-04-03 10:49 | Outpatient (BNV) | payer MEDICARE, SELFPAY | PROVIDERS: PCP Internal Medicine; Visit Provider Internal Medicine Cardiovascular Disease | DX: R00.1 Bradycardia, unspecified (principal) | CPT/HCPCS: 93308 ==

== ENCOUNTER 2023-04-28 12:46 | Outpatient (AMB) | payer MEDICARE, SELFPAY ==
[2023-04-28 12:51] VITALS: BP 134/76; PULSE 47; O2SAT 97; BMI 27.5
--- NOTE | 2023-04-28 12:51 | A.OFFPC_ITS ---
Vital Signs 04/28/23 12:51 Height 5 ft 3 in Weight 155 lb BMI 27.5 BP 134/76 Blood Pressure Location Lt brachial Position Sitting Pulse 47 L Pulse Source Pulse Oximeter Pulse Oximetry (%) 97 Oxygen Delivery Method Room Air Intake Visit Reasons: Coronary artery disease Allergies lisinopril Allergy (Severe, Verified 04/28/23 12:52) anaphylaxis amoxicillin Allergy (Intermediate, Verified 04/28/23 12:52) rash atenolol Allergy (Intermediate, Verified 04/28/23 12:52) rash Sulfa (Sulfonamide Antibiotics) Allergy (Intermediate, Verified 04/28/23 12:52) rash Tobacco use date assessed: 01/23/23 Fall risk assessment: No Falls in past year Last assessed Fall Risk: 04/28/23 Dental Screening Dental Screen Date: 04/28/23 Did you have a dental visit in the last 12 months?: Yes Did you have a dental problem in the last 6 months where you did not have access to dental care?: No Was dental information given to patient?: Patient has dentist HPI Coronary artery disease HPI Details 72-year-old overweight female with coron jose manuel artery disease that so Ward cardiomyopathy GERD hypertension hypercholesterolemia and Patricia anxiety disorder coming in for follow-up. Patient was last seen in January 2023 patient's mammogram is due as well as bone density.. Patient just had an echocardiogram 04/04/2023Normal left ventricular cavity size. The left ventricular systolic function is low normal. The visually estimated ejection fraction is between 50-55%. - There is paradoxical septal motion con sistent with a left bundle branch block. And follow-up with cardiology [place] also review of the notes from a discharge 07/26/2023 cardiac catheterization severe LAD diagonal disease severe RCA advised medical therapy. on cardiac rehab and going on transition. looking for psychiatry [facility] Medical History (Updated 01/23/23 @ 16:23 by Sourav Dela Cruz MD) COVID-19 vaccine series completed Shingles Fracture of distal phalanx of finger of right hand Fatty liver GERD (gastroesophageal reflux disease) Hypertension Hypercholesterolemia Coronary artery disease History of breast cancer Surgical History H/O colonoscopy History of angioplasty History of lumpectomy of left breast History of tubal ligation S/P CABG x 3 Family History Father CHF (congestive heart failure) CVD (cardiovascular disease) Mother Myocardial infarction CVD (cardiovascular disease) Brother Myocardial infarction Social History Household Members: Spouse Housing: House Do you presently have visiting nurse or other home services: Yes Alcohol intake: current Alcohol intake frequency: a few times a week Alcohol type: wine Patient Tobacco Use Status: Never used Tobacco e-Cigarette/Vaping Use: Never Used Second Hand Smoke Exposure: No service: No Current occupational status: retired Cognitive needs: No Hearing needs: No Vision needs: Yes Questionnaire PHQ-9 Over the last 2 weeks, how often have you been bothered by any of the following problems? 1. Little interest or pleasure in doing things: several days 2. Feeling down, depressed, or hopeless: several days 3. Trouble falling or staying asleep, or sleeping too much: several days 4. Feeling tired or having little energy: several days 5. Poor appetite or overeating: not at all 6. Feeling bad about yourself - or that you are a failure or have let yourself or your family down: not at all 7. Trouble concentrating on things, such as reading the newspaper or watching television: not at all 8. Moving or speaking so slowly that other people could have noticed. Or the opposite - being so fidgety or restless that you have been moving around a lot more than usual: not at all 9. Thoughts that you would be better off or of hurting yourself in some way: not at all Total score: 4 Depression Screening Interpretation: Positive Source: Developed by Drs. Jaime Askew, Melissa Mccauley, Ranjeet Larsen and colleagues, with an educational kym from [email or web address] Thrive Questionnaire Date Thrive assessed: 09/02/22 AUDIT C Alcohol Use Questionnaire (AUDIT-C) 1. How often do you have a drink containing alcohol?: 4 or more times a week 2. How many drinks containing alcohol do you have on a typical day when you are drinking?: 1 or 2 3. How often do you have six or more drinks on one occasion?: Never Total Score: 4 TRI-7 AMB Questionnaire TRI-7 Date TRI - 7 assessed: 09/02/22 Source: Developed by Drs. Jaime Askew, Melissa Mccauley, Ranjeet Larsen and colleagues, with an educational kym from [email or web address]. Physical exam (Primary Care) Vital Signs: Last Vital Signs Pulse 47 L 04/28/23 12:51 BP 134/76 04/28/23 12:51 Pulse Ox 97 04/28/23 12:51 Oxygen Delivery Method Room Air 04/28/23 12:51 BMI result Body Mass Index 27.5 Tobacco/Smoking Status: Tobacco use Status Tobacco use date assessed 01/23/23 04/28/23 12:58 Patient Tobacco Use Status Never used Tobacco 04/28/23 12:58 e-Cigarette/Vaping Use Never Used 04/28/23 12:58 PHQ-9: PHQ-9 Score PHQ-9: Total score 4 04/28/23 12:58 Depression Screening Interpretation: Positive Thrive Assessment: Date of Thrive Assessment Date Thrive assessed 09/02/22 04/28/23 12:58 Const General: alert; No acute distress Eyes Conjunctivae: conjunctivae normal Resp Auscultation: clear to auscultation bilaterally Cardio Rate: regular rate Rhythm: regular rhythm GI Inspection: Yes normal to inspection Extrem General: Yes normal to inspection and No edema Assessment and Plan Assessment & Plan (1) Takotsubo cardiomyopathy: Code(s): I51.81 - Takotsubo syndrome Plan: Patient continues to be followed up by Cardiology and advised antidepressant and psychiatric evaluation (2) Coronary artery disease: Comment: Angioplasty March 2015 Dr. Zahra Dawn, dr. Tadeo 10/06/2022 showing left main normal, lad mid 75% stenosis, IFR 0.87, 1st diagonal 60% stenosis, left circumflex minimal irregularities, RCA mid 80% stenosis, distal 90% stenosis plan for PCI with arthrectomy verses Coronary artery bypass grafting, RCA is culprit lesion Code(s): I25.10 - Atherosclerotic heart disease of [place] coronary artery without angina pectoris Qualifiers: Coronary Disease-Associated Artery/Lesion type: [place] artery [place] vs. transplanted heart: [place] heart Associated angina: without angina Quali fied Code(s): I25.10 - Atherosclerotic heart disease of [place] coronary artery without angina pectoris Plan: Control the cholesterol, weight, blood pressure (3) Hypercholesterolemia: Code(s): E78.00 - Pure hypercholesterolemia, unspecified Plan: Avoid fried foods, chicken skin, eggs, butter margarine, pastries and meat. Be it pork or beef they have a lot of cholesterol LDL goal of less than 70. September 2022 last LDL done 71 patient is taking Zetia with rosuvastatin 40 mg at bedtime (4) Hypertension: Code(s): I10 - Essential (primary) hypertension Qualifiers: Hypertension type: essential hypertension Qualified Code(s): I10 - Essential (primary) hypertension Plan: Continue with blood pressure medication. Decrease salt intake and exercise patient is on metoprolol 25 mg twice a day (5) GERD (gastroesophageal reflux disease): Code(s): K21.9 - Gastro-esophageal reflux disease without esophagitis Qualifiers: Esophagitis presence: without esophagitis Qualified Code(s): K21.9 - Gastro-esophageal reflux disease without esophagitis Plan: Avoid the foods that causes that usually spicy foods, tomato products, juices, coffee, soda and foods that your sensitive to. After eating do not lie down, allow 3-4 hours before in lie down. And keep the head of bed above 30 degrees to avoid the acid from going up. (6) Generalized anxiety disorder: Code(s): F41.1 - Generalized anxiety disorder Plan: Continue with anxiety medication and discussed about counseling. Orders: Orders Comprehensive Met. Panel Today E78.00 - Pure hypercholesterolemia, unspecified Complete Blood Count Auto Diff Today E78.00 - Pure hypercholesterolemia, unspecified B Type Natriuretic Peptide Today E78.00 - Pure hypercholesterolemia, unspecified Lipid Panel Today E78.00 - Pure hypercholesterolemia, unspecified Free T4 (Free Thyroxine) Today E78.00 - Pure hypercholesterolemia, unspecified Thyroid Stimulating Hormone Today E78.00 - Pure hypercholesterolemia, unspecified Vitamin B12 and Folate Today E78.00 - Pure hypercholesterolemia, unspecified Medications: Changed From sertraline 25 mg PO DAILY 30 tabs 2RF F41.1 - Generalized anxiety disorder To sertraline 50 mg PO DAILY 90 days 90 tabs 1RF F41.1 - Generalized anxiety disorder Refilled metoprolol tartrate 25 mg PO BID 180 tabs 3RF E78.00 - Pure hypercholesterolemia, unspecified Discontinued azithromycin To be taken as 2 tablets together x 1 dose 1 hour before dental procedure for antibiotic prophylaxis Discontinued Reason: Doctor's Order 500 mg (2 x 250 mg) PO ONCE 1 day 2 tabs 0RF dental prophylaxis Coding Level of Care Code Est Pt Level 4 (57071) Diagnoses Takotsubo cardiomyopathy I51.81 Coronary artery disease involving [place] coronary artery of [place] heart without angina pectoris I25.10 Coronary Disease-Associated Artery/Lesion type: [place] artery [place] vs. transplanted heart: [place] heart Associated angina: without angina Hypercholesterolemia E78.00 Essential hypertension I10 Hypertension type: essential hypertension Gastroesophageal reflux disease without esophagitis K21.9 Esophagitis presence: without esophagitis Generalized anxiety disorder F41.1
== END 2023-04-28 13:42 | disposition home or self-care (01) ==
PROVIDERS: PCP Internal Medicine; Visit Provider Internal Medicine
DX: I10 Essential (primary) hypertension (principal); K21.9 Gastro-esophageal reflux disease without esophagitis; I51.81 Takotsubo syndrome; I25.10 Atherosclerotic heart disease of native coronary artery without angina pectoris; E78.00 Pure hypercholesterolemia, unspecified; F41.1 Generalized anxiety disorder
CPT/HCPCS: 99214

== ENCOUNTER 2023-05-11 08:34 | Outpatient (REF) | payer MEDICARE, SELFPAY | END 2023-05-11 08:35 | disposition home or self-care (01) | LOC: HO.MAMMO 08:34 | PROVIDERS: PCP Internal Medicine; Visit Provider Internal Medicine | DX: Z13.820 Encounter for screening for osteoporosis (principal); M81.0 Age-related osteoporosis without current pathological fracture; Z78.0 Asymptomatic menopausal state | CPT/HCPCS: 77080 ==

== ENCOUNTER 2023-07-10 12:41 | Outpatient (AMB) | payer MEDICARE, SELFPAY ==
--- NOTE | 2023-07-10 12:43 | A.OFFVIS_ITS ---
Intake Vital Signs 07/10/23 12:44 Height 53 ft Weight 154 lb 5.177 oz BMI 0.3 BP 120/70 Blood Pressure Location Lt brachial Position Sitting Pulse 54 Pulse Source Pulse Oximeter Intake Visit Reasons: 3 mth f/up correa echo Intake Note: 3 mth f/u patient feels fine. Personal Counselor Required: No Accompanied by: Self / Same As Patient Allergies lisinopril Allergy (Severe, Verified 07/10/23 12:46) anaphylaxis amoxicillin Allergy (Intermediate, Verified 07/10/23 12:46) rash atenolol Allergy (Intermediate, Verified 07/10/23 12:46) rash Sulfa (Sulfonamide Antibiotics) Allergy (Intermediate, Verified 07/10/23 12:46) rash Medication List - Last Reconciled 07/10/23 by Jordan Tadeo MD aspirin (Adult Aspirin Regimen) 81 mg PO DAILY cholecalciferol (vitamin D3) (Vitamin D3) 50 mcg PO DAILY clopidogrel 75 mg PO DAILY ezetimibe 10 mg PO DAILY metoprolol tartrate 25 mg PO BID multivitamin 1 tab PO DAILY rosuvastatin 40 mg PO BEDTIME sertraline 50 mg PO DAILY 90 days trazodone 50 mg PO BEDTIME HPI HPI Comments History of Present Illness Details 72 year old female here for follow-up. She has background of CAD s/p CABG. Recent admission to the hospital with NSTEMI in the setting of his significant stress due to 's diagnosis of multiple myeloma he was diagnosed with a cardiomyopathy with EF of 44% heart catheterization did not show any significant change in any of the grafts were open She is returning for follow-up today. He we significantly depressed and tearful. She is having significant adjustment issues with her 's health issues at this point. She was given benzodiazepine but she feels that they did not make any significant improvement in symptoms. She is very anxious. Denying any other issues. 07/10/2023: She returns for follow-up. S he has been doing well. No chest pain or shortness breath. She has been taking regular walks with her and has no exertional symptoms. Occasionally feels some tenderness in the chest along the sternotomy site. She has been sleeping in a recliner. She is saying when she lies in bed she cannot get comfortable. . [facility] Medical History (Updated 07/10/23 @ 13:08 by Jordan Tadeo MD) Stable angina COVID-19 vaccine series completed Shingles Fracture of distal phalanx of finger of right hand Fatty liver GERD (gastroesophageal reflux disease) Hypertension Hypercholesterolemia Coronary artery disease History of breast cancer Surgical History S/P CABG x 3 H/O colonoscopy History of angioplasty History of lumpectomy of left breast History of tubal ligation Family History Father CHF (congestive heart failure) CVD (cardiovascular disease) Mother Myocardial infarction CVD (cardiovascular disease) Brother Myocardial infarction Social History Household Members: Spouse Housing: House Do you presently have visiting nurse or other home services: Yes Alcohol intake: current Alcohol intake frequency: a few times a week Alcohol type: wine Patient Tobacco Use Status: Never used Tobacco e-Cigarette/Vaping Use: Never Used Second Hand Smoke Exposure: No service: No Current occupational status: retired Cognitive needs: No Hearing needs: No Vision needs: Yes Review of Systems Const Reports chills, Reports fatigue, Reports fever(s), Reports frequent falls, Reports weakness, Reports weight gain and Reports weight loss ENT Reports dizziness Card Reports chest pain, Reports leg edema, Reports lightheadedness, Reports palpitations, Reports dyspnea and Reports dyspnea on exertion Resp Reports cough, Reports dyspnea and Reports dyspnea on exertion GI Reports hematochezia Musc Reports abnormal gait, Reports muscle weakness, Reports numbness, Reports radiating pain into limb and Reports tingling Neuro Reports abnormal gait, Reports dizziness, Reports frequent falls, Reports numbness, Reports tingling and Reports weakness Endo Reports fatigue and Reports palpitations Physical Exam Vital Signs: Last Vital Signs Pulse 54 07/10/23 12:44 BP 120/70 07/10/23 12:44 BMI result Body Mass Index 0.3 GENERAL APPEARANCE: in no acute distress, Tearful and stressed. NECK: no carotid bruit, no jugular venous distention. SKIN: no suspicious lesions, warm and dry. HEART: no murmurs, regular rate and rhythm. LUNGS: clear to auscultation bilaterally. ABDOMEN: soft, nontender. EXTREMITIES: no edema. PERIPHERAL PULSES: equal. NEUROLOGIC: No gross deficits, AAO X 3 Assessment & Plan Assessment & Plan (1) Takotsubo cardiomyopathy: Code(s): I51.81 - Takotsubo syndrome (2) Stable angina: Code(s): I20.8 - Other forms of angina pectoris Plan Pleasant 72 year female who is here for follow-up. She has history of left bundle-branch block and coronary artery disease status post bypass surgery with WATSON to LAD and vein graft to PDA. She had NSTEMI in the setting of severe stress due to 's diagnosis of myeloma. She was taken for cardiac catheterization which showed patent grafts. Echocardiography was consistent with takotsubo cardiomyopathy which has recovered at this stage. She has been doing well. We discussed about aspirin Plavix and I have advised her that after 1 year she should stop the aspirin and stay on Plavix monotherapy . Blood pressure control is good. Follow-up with us in 6 months. Thank you for allowing me to participate in the care of your patient. Please feel free to contact me if you have any questions. Coding Level of Care Code Est Pt Level 4 (65778) Diagnoses Takotsubo cardiomyopathy I51.81 Stable angina I20.8
[2023-07-10 12:44] VITALS: BP 120/70; PULSE 54
== END 2023-07-10 13:08 | disposition home or self-care (01) ==
PROVIDERS: PCP Internal Medicine; Visit Provider Internal Medicine Cardiovascular Disease
DX: I51.81 Takotsubo syndrome (principal); I20.8 Other forms of angina pectoris
CPT/HCPCS: 99214

== ENCOUNTER → 2023-07-10 12:41 | Outpatient (BNVA) | payer MEDICARE, SELFPAY | PROVIDERS: PCP Internal Medicine; Visit Provider Internal Medicine Cardiovascular Disease | DX: I51.81 Takotsubo syndrome (principal); I20.89 Other forms of angina pectoris | CPT/HCPCS: 99212 ==

== ENCOUNTER 2023-07-11 10:12 | Outpatient (REF) | payer MEDICARE, SELFPAY ==
[2023-07-11 10:33] LABS: MANUAL DIFF FLAG NO
[2023-07-11 11:32] LABS: Basophils Percent Auto 0.8 % (0-2); Eosinophils Absolute Auto 0.1 X10*3/uL (0.0-0.4); Eosinophils Percent Auto 1.1 % (0-4); Hematocrit 42.1 % (37.0-47.0); Hemoglobin 14.1 g/dl (12.0-16.0); Imm Gran Abs Auto 0.01 X10*3/uL (0.00-0.03); Imm Gran Pct Auto 0.2 % (0.0-0.4); Lymphocytes Absolute Auto 1.6 X10*3/uL (1.2-4.9); Lymphocytes Percent Auto 33.1 % (20-40); Mean Corpuscular HGB Conc 33.5 g/dl (31.0-35.0); Mean Corpuscular Hemoglobin 31.1 pg (27.0-33.0); Mean Corpuscular Volume 92.7 fL (80.0-98.0); Mean Platelet Volume 11.7 fL (9.4-12.3); Monocytes Absolute Auto 0.4 X10*3/uL (0.1-1.2); Monocytes Percent Auto 8.2 % (2-11); Neutrophils Absolute Auto 2.7 x10*3/uL (2.0-8.3); Neutrophils Percent Auto 56.6 % (45-73); Platelet Count 197 X10*3/uL (160-400); Red Blood Count 4.54 X10*6/uL (4.20-5.50); Red Cell Distribution Width 12.4 % (11.0-16.0); White Blood Count 4.7 X10*3/uL (4.8-10.8)
[2023-07-11 12:00] LABS: B Type Natriuretic Peptide 185 pg/mL (<100)
[2023-07-11 12:40] LABS: Folate 13.3 ng/mL (> or = 4.0); Vitamin B12 488 pg/mL (200-900)
[2023-07-11 12:48] LABS: Alanine Aminotransferase 32 U/L (0-31); Albumin Level 4.2 g/dL (3.5-5.0); Alkaline Phosphatase 45 U/L (39-117); Anion Gap 12 (12-20); Aspartate Amino Transferase 36 U/L (5-31); Bilirubin Total 0.6 mg/dL (0.0-1.0); Blood Urea Nitrogen 14 mg/dL (9-16); Calcium 9.8 mg/dL (8.4-10.2); Carbon Dioxide 26 mmol/L (22-29); Chloride 108 mmol/L (96-108); Cholesterol 143 mg/dL (<200); Estimated Glomerular Filt Rate > 60; Free T4 (Free Thyroxine) 0.88 ng/dL (0.71-1.85); Glucose Random 95 mg/dL (60-115); HDL Cholesterol 55 mg/dL (>40); LDL Cholesterol Calculated 69 mg/dL (<100); Potassium 4.3 mmol/L (3.3-5.1); Sodium 142 mmol/L (135-145); Thyroid Stimulating Hormone 1.99 uIU/mL (0.32-4.0); Total Protein 7.4 g/dL (6.5-8.0); Triglycerides 96 mg/dL (<150)
== END 2023-07-11 10:13 | disposition home or self-care (01) ==
LOC: HO.LAB 10:12
PROVIDERS: PCP Internal Medicine; Visit Provider Internal Medicine
DX: E78.00 Pure hypercholesterolemia, unspecified (principal)
CPT/HCPCS: 36415; 80053; 80061; 82607; 82746; 83880; 84439; 84443; 85025

== ENCOUNTER 2023-08-09 08:43 | Outpatient (AMB) | payer MEDICARE, SELFPAY ==
[2023-08-09 08:45] VITALS: BP 130/70; PULSE 53; O2SAT 100; BMI 27.8
--- NOTE | 2023-08-09 08:45 | MHC.PC.OV ---
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 Required: No Allergies lisinopril Allergy (Severe, Verified 08/09/23 08:45) anaphylaxis amoxicillin Allergy (Intermediate, Verified 08/09/23 08:45) rash atenolol Allergy (Intermediate, Verified 08/09/23 08:45) rash Sulfa (Sulfonamide Antibiotics) Allergy (Intermediate, Verified 08/09/23 08:45) rash Medication List - Last Reconciled 08/09/23 by Sourav Dela Cruz MD aspirin (Adult Aspirin Regimen) 81 mg PO DAILY cholecalciferol (vitamin D3) (Vitamin D3) 50 mcg PO DAILY clopidogrel 75 mg PO DAILY ezetimibe 10 mg PO DAILY metoprolol tartrate 25 mg PO BID multivitamin 1 tab PO DAILY rosuvastatin 40 mg PO BEDTIME sertraline 50 mg PO DAILY 90 days trazodone 50 mg PO BEDTIME Tobacco use date assessed: 08/09/23 Fall risk assessment: No Falls in past year Last assessed Fall Risk: 08/09/23 Dental Screening Dental Screen Date: 09/13/23 Did you have a dental visit in the last 12 months?: Yes Did you have a dental problem in the last 6 months where you did not have access to dental care?: No Was dental information given to patient?: Patient has dentist HPI cad HPI Details 73-year-old overweight female with a history of Takotsubo cardiomyopathy(has been diagnosis myeloma) coronary artery disease hypercholesterolemia hypertension GERD and generalized anxiety disorder last seen in April 2023. Patient mammogram is due bone density is up-to-date colonoscopy is up-to-date. Review of the notes July was seen by Cardiology. Last echocardiogram March 2023Normal left ventricular cavity size. The left ventricular systolic function is low normal. The visually estimated ejection fraction is between 50-55%. - There is paradoxical septal motion consistent with a left bundle branch block. [facility] Medical History (Updated 08/09/23 @ 09:03 by Sourav Dela Cruz MD) Stable angina COVID-19 vaccine series completed Shingles Fracture of distal phalanx of finger of right hand Fatty liver GERD (gastroesophageal reflux disease) Hypertension Hypercholesterolemia Coronary artery disease History of breast cancer Surgical History S/P CABG x 3 H/O colonoscopy History of angioplasty History of lumpectomy of left breast History of tubal ligation Family History Father CHF (congestive heart failure) CVD (cardiovascular disease) Mother Myocardial infarction CVD (cardiovascular disease) Brother Myocardial infarction Social History Household Members: Spouse Housing: House Do you presently have visiting nurse or other home services: Yes Alcohol intake: current Alcohol intake frequency: a few times a week Alcohol type: wine Patient Tobacco Use Status: Never used Tobacco e-Cigarette/Vaping Use: Never Used Second Hand Smoke Exposure: No service: No Current occupational status: retired Cognitive needs: No Hearing needs: No Vision needs: Yes Questionnaire PHQ-9 Over the last 2 weeks, how often have you been bothered by any of the following problems? 1. Little interest or pleasure in doing things: not at all 2. Feeling down, depressed, or hopeless: not at all 3. Trouble falling or staying asleep, or sleeping too much: not at all 4. Feeling tired or having little energy: not at all 5. Poor appetite or overeating: not at all 6. Feeling bad about yourself - or that you are a failure or have let yourself or your family down: not at all 7. Trouble concentrating on things, such as reading the newspaper or watching television: not at all 8. Moving or speaking so slowly that other people could have noticed. Or the opposite - being so fidgety or restless that you have been moving around a lot more than usual: not at all 9. Thoughts that you would be better off or of hurting yourself in some way: not at all Total score: 0 Depression Screening Interpretation: Negative Depression Screening Done: Yes Source: Developed by Drs. Jaime Askew, Melissa Mccauley, Ranjeet Larsen and colleagues, with an educational kym from [employer]. Thrive Questionnaire Date Thrive assessed: 08/09/23 I am a: Patient What is your living situation today?: I have a steady place to live Within the past 12 months, did the food you bought not last and you didn't have the money to get more?: Never true Within the past 12 months, did you worry whether your food would run out before you got money to buy more?: Never true Do you have trouble paying for medicines?: No Do you have trouble getting transportation to medical appointments?: No Do you have trouble paying your heating and electricity bill?: No Do you have trouble taking care of your child, family member or friend?: No Do you have trouble with day-to-day activities such as bathing, preparing meals, shopping, managing finances, etc.?: No Are you currently unemployed and looking for a job?: No Are you interested in more education?: No AUDIT C Alcohol Use Questionnaire (AUDIT-C) 1. How often do you have a drink containing alcohol?: 4 or more times a week 2. How many drinks containing alcohol do you have on a typical day when you are drinking?: 1 or 2 3. How often do you have six or more drinks on one occasion?: Never Total Score: 4 TRI-7 AMB Questionnaire TRI-7 Date TRI - 7 assessed: 08/09/23 Feeling nervous, anxious, or on edge: 1 = Several days Not being able to stop or control worryin = Not at all Worrying too much about different things: 0 = Not at all Trouble relaxin = Not at all Being so restless that it is hard to sit still: 0 = Not at all Becoming easily annoyed or irritable: 0 = Not at all Feeling afraid as if something awful might happen: 0 = Not at all Total TRI-7 score (0-4 normal; 5-9 mild; 10-14 moderate; 15-21 severe): 1 Source: Developed by Drs. Jaime Askew, Melissa Mccauley, Ranjeet Larsen and colleagues, with an educational kym from [employer]. Physical exam (Primary Care) Vital Signs: Last Vital Signs Pulse 53 08/09/23 08:45 BP 130/70 08/09/23 08:45 Pulse Ox 100 08/09/23 08:45 Oxygen Delivery Method Room Air 08/09/23 08:45 BMI result Body Mass Index 27.8 Tobacco/Smoking Status: Tobacco use Status Tobacco use date assessed 08/09/23 08/09/23 08:46 Patient Tobacco Use Status Never used Tobacco 08/09/23 08:46 e-Cigarette/Vaping Use Never Used 08/09/23 08:46 PHQ-9: PHQ-9 Score PHQ-9: Total score 0 08/09/23 08:46 Depression Screening Interpretation: Negative Thrive Assessment: Date of Thrive Assessment Date Thrive assessed 08/09/23 08/09/23 08:46 Const General: alert; No acute distress Eyes Conjunctivae: conjunctivae normal Resp Auscultation: clear to auscultation bilaterally Cardio Rate: regular rate Rhythm: regular rhythm GI Inspection: Yes normal to inspection Extrem General: Yes normal to inspection and No edema Assessment and Plan Assessment & Plan (1) Takotsubo cardiomyopathy: Comment: March 2023Normal left ventricular cavity size. The left ventricular systolic function is low normal. The visually estimated ejection fraction is between 50-55%. - There is paradoxical septal motion consistent with a left bundle branch block. Code(s): I51.81 - Takotsubo syndrome Plan: Cardiology notes ejection fraction has recovered March 2023 echocardiogram (2) Osteoporosis: Comment: 05/2023 Code(s): M81.0 - Age-related osteoporosis without current pathological fracture Plan: Bone density done May 2023 on calcium and vitamin-D (3) S/P CABG x 3: Comment: 12/02/[address] Morrison WATSON to LAD, Radial to 1st diagonal of LAD, GSV LV branch of RCA Code(s): Z95.1 - Presence of aortocoronary bypass graft Plan: Control the cholesterol, weight, blood pressure, Patient has discontinued with aspirin and continued with plavix (4) Breast cancer screening by mammogram: Comment: 2007 Dr. Conde left breast lumpectomy and radiation finished letrozole 2014 Code(s): Z12.31 - Encounter for screening mammogram for malignant neoplasm of breast Plan: Reminded about mammogram (5) Hypertension: Code(s): I10 - Essential (primary) hypertension Qualifiers: Hypertension type: essential hypertension Qualified Code(s): I10 - Essential (primary) hypertension Plan: Continue with blood pressure medication. Decrease salt intake and exercise presently on metoprolol 25 twice a day (6) Hypercholesterolemia: Code(s): E78.00 - Pure hypercholesterolemia, unspecified Plan: Avoid fried foods, chicken skin, eggs, butter margarine, pastries and meat. Be it pork or beef they have a lot of cholesterol LDL goal of less than 70 and triglyceride of less than 150. On rosuvastatin 40 mg once a day (7) GERD (gastroesophageal reflux disease): Code(s): K21.9 - Gastro-esophageal reflux disease without esophagitis Qualifiers: Esophagitis presence: without esophagitis Qualified Code(s): K21.9 - Gastro-esophageal reflux disease without esophagitis Plan: Avoid the foods that causes that usually spicy foods, tomato products, juices, coffee, soda and foods that your sensitive to. After eating do not lie down, allow 3-4 hours before in lie down. And keep the head of bed above 30 degrees to avoid the acid from going up. (8) Generalized anxiety disorder: Comment: Declined counseling Code(s): F41.1 - Generalized anxiety disorder Plan: Patient has been placed on sertraline and trazodone Orders: Referrals Endocrinology Referral M81.0 - Age-related osteoporosis without current pathological fracture Medications: Changed From sertraline 50 mg PO DAILY 90 days 90 tabs 1RF F41.1 - Generalized anxiety disorder To sertraline 100 mg PO DAILY 90 days 90 tabs 1RF F41.1 - Generalized anxiety disorder Refilled clopidogrel 75 mg PO DAILY 90 tabs 3RF I20.8 - Other forms of angina pectoris trazodone 50 mg PO BEDTIME 90 tabs 2RF I51.81 - Takotsubo syndrome Coding Level of Care Code Est Pt Level 4 (51173) Diagnoses Takotsubo cardiomyopathy I51.81 Osteoporosis M81.0 S/P CABG x 3 Z95.1 Breast cancer screening by mammogram Z12.31 Essential hypertension I10 Hypertension type: essential hypertension Hypercholesterolemia E78.00 Gastroesophageal reflux disease without esophagitis K21.9 Esophagitis presence: without esophagitis Generalized anxiety disorder F41.1
== END 2023-08-09 09:30 | disposition home or self-care (01) ==
PROVIDERS: PCP Internal Medicine; Visit Provider Internal Medicine
DX: I51.81 Takotsubo syndrome (principal); M81.0 Age-related osteoporosis without current pathological fracture; Z95.1 Presence of aortocoronary bypass graft; Z12.31 Encounter for screening mammogram for malignant neoplasm of breast; I10 Essential (primary) hypertension; E78.00 Pure hypercholesterolemia, unspecified; K21.9 Gastro-esophageal reflux disease without esophagitis; F41.1 Generalized anxiety disorder
CPT/HCPCS: 99214

== ENCOUNTER 2024-01-15 11:11 | Outpatient (AMB) | payer MEDICARE, SELFPAY ==
[2024-01-15 11:35] VITALS: BP 130/60; PULSE 55; O2SAT 100; BMI 27.2
--- NOTE | 2024-01-15 11:35 | A.OFFVIS_ITS ---
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 Required: No Accompanied by: Self / Same As Patient Allergies lisinopril Allergy (Severe, Verified 08/09/23 08:45) anaphylaxis amoxicillin Allergy (Intermediate, Verified 08/09/23 08:45) rash atenolol Allergy (Intermediate, Verified 08/09/23 08:45) rash Sulfa (Sulfonamide Antibiotics) Allergy (Intermediate, Verified 08/09/23 08:45) rash Medication List - Last Reconciled 01/15/24 by Jordan Tadeo MD cholecalciferol (vitamin D3) (Vitamin D3) 50 mcg PO DAILY clopidogrel 75 mg PO DAILY ezetimibe 10 mg PO DAILY metoprolol tartrate 25 mg PO BID multivitamin 1 tab PO DAILY rosuvastatin 40 mg PO BEDTIME sertraline 100 mg PO DAILY 90 days trazodone 50 mg PO BEDTIME HPI Comments Details: 72 year old female here for follow-up. She has background of CAD s/p CABG. Recent admission to the hospital with NSTEMI in the setting of his significant stress due to 's diagnosis of multiple myeloma he was diagnosed with a cardiomyopathy with EF of 44% heart catheterization did not show any significant change in any of the grafts were open She is returning for follow-up today. He we significantly depressed and tearful. She is having significant adjustment issues with her 's health issues at this point. She was given benzodiazepine but she feels that they did not make any significant improvement in symptoms. She is very anxious. Denying any other issues. 07/10/2023: She returns for follow-up. She has been doing well. No chest pain or shortness breath. She has been taking regular walks with her and has no exertional symptoms. Occasionally feels some tenderness in the chest along the sternotomy site. She has been sleeping in a recliner. She is saying when she lies in bed she cannot get comfortable. . 01/15/24: She returns for f/u. Her from multiple myeloma and PNA. She said the is in few days. She is denying any symptoms on f/u otherwise. [facility] Medical History (Updated 08/09/23 @ 09:03 by Sourav Dela Cruz MD) Stable angina COVID-19 vaccine series completed Shingles Fracture of distal phalanx of finger of right hand Fatty liver GERD (gastroesophageal reflux disease) Hypertension Hypercholesterolemia Coronary artery disease History of breast cancer Surgical History S/P CABG x 3 H/O colonoscopy History of angioplasty History of lumpectomy of left breast History of tubal ligation Family History Father CHF (congestive heart failure) CVD (cardiovascular disease) Mother Myocardial infarction CVD (cardiovascular disease) Brother Myocardial infarction Social History Household Members: Spouse Housing: House Do you presently have visiting nurse or other home services: Yes Alcohol intake: current Alcohol intake frequency: a few times a week Alcohol type: wine Patient Tobacco Use Status: Never used Tobacco e-Cigarette/Vaping Use: Never Used Second Hand Smoke Exposure: No service: No Current occupational status: retired Cognitive needs: No Hearing needs: No Vision needs: Yes Review of Systems Const Denies chills, Denies fatigue, Denies fever(s), Denies frequent falls, Denies weakness, Denies weight gain and Denies weight loss ENT Denies dizziness Card Denies chest pain, Denies leg edema, Denies lightheadedness, Denies palpitations, Denies dyspnea and Denies dyspnea on exertion Resp Denies cough, Denies dyspnea and Denies dyspnea on exertion GI Denies hematochezia Musc Denies abnormal gait, Denies muscle weakness, Denies numbness, Denies radiating pain into limb and Denies tingling Neuro Denies abnormal gait, Denies dizziness, Denies frequent falls, Denies numbness, Denies tingling and Denies weakness Endo Denies fatigue and Denies palpitations Physical Exam Vital Signs: Last Vital Signs Pulse 55 01/15/24 11:35 BP 130/60 01/15/24 11:35 Pulse Ox 100 01/15/24 11:35 Oxygen Delivery Method Room Air 01/15/24 11:35 BMI result Body Mass Index 27.2 GENERAL APPEARANCE: in no acute distress. NECK: no carotid bruit, no jugular venous distention. SKIN: no suspicious lesions, warm and dry. HEART: no murmurs, regular rate and rhythm. LUNGS: clear to auscultation bilaterally. ABDOMEN: soft, nontender. EXTREMITIES: no edema. PERIPHERAL PULSES: equal. NEUROLOGIC: No gross deficits, AAO X 3 Assessment & Plan Assessment & Plan (1) Takotsubo cardiomyopathy: Comment: March 2023Normal left ventricular cavity size. The left ventricular systolic function is low normal. The visually estimated ejection fraction is between 50-55%. - There is paradoxical septal motion consistent with a left bundle branch block. Code(s): I51.81 - Takotsubo syndrome Category: Medical (2) Stable angina: Code(s): I20.8 - Other forms of angina pectoris Category: Medical Plan Pleasant 73 year female who is here for follow-up. She has history of left bundle-branch block and coronary artery disease status post bypass surgery with WATSON to LAD and vein graft to PDA. She had NSTEMI in the setting of severe stress due to 's diagnosis of myeloma. She was taken for cardiac catheterization which showed patent grafts. Echocardiography was consistent with takotsubo cardiomyopathy which has recovered at this stage. She has been doing well. She is on Plavix monotherapy. Blood pressure control is good. Follow-up with us in 6 months. Thank you for allowing me to participate in the care of your patient. Please feel free to contact me if you have any questions. Coding Level of Care Code Est Pt Level 3 (98930) Diagnoses Takotsubo cardiomyopathy I51.81 Stable angina I20.8
== END 2024-01-15 11:58 | disposition home or self-care (01) ==
PROVIDERS: PCP Internal Medicine; Visit Provider Internal Medicine Cardiovascular Disease
DX: I51.81 Takotsubo syndrome (principal); I20.89 Other forms of angina pectoris
CPT/HCPCS: 99213

== ENCOUNTER → 2024-01-15 11:11 | Outpatient (BNVA) | payer MEDICARE, SELFPAY | PROVIDERS: PCP Internal Medicine; Visit Provider Internal Medicine Cardiovascular Disease | DX: I51.81 Takotsubo syndrome (principal); I20.89 Other forms of angina pectoris | CPT/HCPCS: 99212 ==

== ENCOUNTER 2024-01-30 10:45 | Outpatient (REF) | payer MEDICARE, SELFPAY ==
--- NOTE | ~2024-01-30 | MM_ITS ---
EXAMINATION: MM SCREENING DIGITAL BREAST TOMOSYNTHESIS, BILATERAL CLINICAL INFORMATION: Screening. Asymptomatic. The patient has a history left breast cancer with conservation. BI-RADS 2 COMPARISON: Mammography: This study is compared with prior exams dating back to 2019. TECHNIQUE: Digital breast tomosynthesis is performed in both the craniocaudal and mediolateral oblique views along with computer-aided detection (CAD). Synthesized 2D images are generated from the tomosynthesis. FINDINGS: The breasts are almost entirely fatty (ACR BI-RADS breast composition Category a). There are no significant masses, abnormal calcifications, or other abnormalities. There are postsurgical changes in the upper outer quadrant of the left breast with benign, dystrophic calcifications. There are surgical clips in the left axilla. MM/MM tomosynthesis screening BI IMPRESSION: No mammographic evidence of malignancy. ASSESSMENT: BI-RADS BI-RADS 2 - Benign Findings RECOMMENDATION: Routine annual mammography screening. 1 year F/U This examination should not preclude the clinical evaluation of a suspicious palpable abnormality. This patient's information was entered into a reminder system with a target due date for their next mammogram.
== END 2024-01-30 10:46 | disposition home or self-care (01) ==
LOC: HO.MAMMO 10:45
PROVIDERS: PCP Internal Medicine; Visit Provider Internal Medicine
DX: Z12.31 Encounter for screening mammogram for malignant neoplasm of breast (principal)
CPT/HCPCS: 77063; 77067

== ENCOUNTER → 2024-01-30 11:00 | Outpatient (BNV) | payer MEDICARE, SELFPAY | PROVIDERS: PCP Internal Medicine; Visit Provider Radiology Diagnostic Radiology | DX: Z12.31 Encounter for screening mammogram for malignant neoplasm of breast (principal) | CPT/HCPCS: 77063; 77067 ==

== ENCOUNTER 2024-02-13 10:39 | Outpatient (AMB) | payer MEDICARE, SELFPAY ==
[2024-02-13 11:03] VITALS: BP 130/68; PULSE 49; O2SAT 98; BMI 26.2
--- NOTE | 2024-02-13 11:03 | A.OFFVIS_ITS ---
Intake Vital Signs 02/13/24 11:03 Height 5 ft 3 in Weight 148 lb BMI 26.2 BP 130/68 Blood Pressure Location Lt brachial Position Sitting Pulse 49 L Pulse Source Pulse Oximeter Pulse Oximetry (%) 98 Oxygen Delivery Method Room Air Intake Visit Reasons: AWV [id number] Allergies lisinopril Allergy (Severe, Verified 02/13/24 11:04) anaphylaxis amoxicillin Allergy (Intermediate, Verified 02/13/24 11:04) rash atenolol Allergy (Intermediate, Verified 02/13/24 11:04) rash Sulfa (Sulfonamide Antibiotics) Allergy (Intermediate, Verified 02/13/24 11:04) rash Medication List - Last Reconciled 02/13/24 by Sourav Dela Cruz MD biotin 1 mg PO DAILY calcium citrate-vitamin D3 315 mg-6.25 mcg (250 unit) (Citracal + Vitamin D Maximum) 1 tab PO DAILY cholecalciferol (vitamin D3) (Vitamin D3) 50 mcg PO DAILY clopidogrel 75 mg PO DAILY ezetimibe 10 mg PO DAILY metoprolol tartrate 25 mg PO BID rosuvastatin 40 mg PO BEDTIME sertraline 100 mg PO DAILY 90 days trazodone 50 mg PO BEDTIME HPI AWV [id number] HPI Details 73-year-old female with a history of fidel otsubo cardiomyopathy coronary artery disease hypertension hypercholesterolemia GERD generalized anxiety disorder last seen in 08/2023. Patient is up-to-date with bone density and colonoscopy. Patient is here for annual well visit. Review of the notes in January was seen by Cardiology and NSTEMI in the setting of significant stress due to 's diagnosis of multiple myeloma. Diagnosis of cardiomyopathy ejection fraction 44%(July 2023) patient just had . 03/2023 echocardiogram normal left ventricular cavity with normal EF 50-55% paradoxical septal wall motion consistent with left bundle branch block on Plavix monotherapy. Patient has also seen Endocrinology for the osteoporosis who has had workup on her and considering [facility]. [facility] Medical History (Updated 02/13/24 @ 11:19 by Sourav Dela Cruz MD) History of breast cancer Colon cancer screening Stable angina COVID-19 vaccine series completed Shingles Fracture of distal phalanx of finger of right hand Fatty liver GERD (gastroesophageal reflux disease) Hypertension Hypercholesterolemia Coronary artery disease Surgical History S/P CABG x 3 H/O colonoscopy History of angioplasty History of lumpectomy of left breast History of tubal ligation Family History Father CHF (congestive heart failure) CVD (cardiovascular disease) Mother Myocardial infarction CVD (cardiovascular disease) Brother Myocardial infarction Social History (Updated 02/13/24 @ 11:36 by Sourav Dela Cruz MD) Household Members: Spouse Housing: House Do you presently have visiting nurse or other home services: Yes Alcohol intake: current Alcohol intake frequency: a few times a week Alcohol type: wine Comment: 2-4 x a week glass of wine Patient Tobacco Use Status: Never used Tobacco e-Cigarette/Vaping Use: Never Used Second Hand Smoke Exposure: No service: No Current occupational status: retired Cognitive needs: No Hearing needs: No Vision needs: Yes Questionnaire Medicare Wellness Checkup [age] What gender do you identify with?: female During the past 4 weeks, how much have you been bothered by emotional problems such as feeling anxious, depressed, irritable, sad or downhearted, and blue?: quite a bit ( passed on January 07. ) During the past 4 weeks, has your physical & emotional health limited your s ocial activities with family, friends, neighbors, or groups?: moderately During the past 4 weeks, how much bodily pain have you generally had?: no pain During the past 4 weeks, was someone available to help you if you needed & wanted help?: yes, some During the past 4 weeks, what was the hardest physical activity you could do for at least 2 minutes?: heavy Can you get to places out of walking distance without help? (For eg., can you travel alone on buses, taxis or drive your car?): Yes Can you go shopping for groceries or clothes without someone's help?: Yes Can you prepare your own meals?: Yes Can you do your housework without help?: Yes Because of any health problems, do you need the help of another person with your personal care needs such as eating, bathing, dressing or getting around the hous e?: No During the past 4 weeks, how would you rate your health in general?: very good During the past 4 weeks how have things been going for you?: good & bad parts about equal Are you having difficulties driving your car?: no Do you always fasten your seat belt when you are in a car?: yes, usually During past 4 weeks, have you been bothered by the following: never: Falling or dizzy when standing up, Sexual problems?, Teeth or denture problems? and Problems using the telephone? and sometimes: Trouble eating well? and Tiredness or fatigue? Have you fallen 2 or more times in the past year?: No Are you afraid of falling?: No Are you a smoker?: no During the past 4 weeks, how many drinks of wine, beer, or other alcoholic beverages did you have?: 2-5 drinks per week Do you exercise for about 20 minutes 3 or more times a week?: yes, most of the time Have you been given information to help with the following?: yes: Hazards in your house that might hurt you? and yes: Keeping track of your medications? How often do you have trouble taking medicines the way you have been told to take them?: I always take medicine as prescribed How confident are you that you can control & manage most of your health problems?: very confident What is your race?: White PHQ-9 Over the last 2 weeks, how often have you been bothered by any of the following problems? 1. Little interest or pleasure in doing things: more than half the days 2. Feeling down, depressed, or hopeless: more than half the days 3. Trouble falling or staying asleep, or sleeping too much: more than half the days 4. Feeling tired or having little energy: several days 5. Poor appetite or overeating: more than half the days 6. Feeling bad about yourself - or that you are a failure or have let yourself or your family down: not at all 7. Trouble concentrating on things, such as reading the newspaper or watching television: several days 8. Moving or speaking so slowly that other people could have noticed. Or the opposite - being so fidgety or restless that you have been moving around a lot more than usual: several days 9. Thoughts that you would be better off or of hurting yourself in some way: not at all Total score: 11 Depression Screening Interpretation: Positive Depression Screening Done: Yes Source: Developed by Drs. Jaime Askew, Melissa Mccauley, Ranjeet Larsen and colleagues, with an educational kym from [employer]. Thrive Questionnaire Date Thrive assessed: 08/09/23 TRI-7 AMB Questionnaire TRI-7 Date TRI - 7 assessed: 02/13/24 Feeling nervous, anxious, or on edge: 1 = Several days Not being able to stop or control worryin = Several days Worrying too much about different things: 1 = Several days Trouble relaxin = Not at all Being so restless that it is hard to sit still: 0 = Not at all Becoming easily annoyed or irritable: 0 = Not at all Feeling afraid as if something awful might happen: 0 = Not at all Total TRI-7 score (0-4 normal; 5-9 mild; 10-14 moderate; 15-21 severe): 3 Source: Developed by Drs. Jaime Askew, Melissa Mccauley, Ranjeet Larsen and colleagues, with an educational kym from [employer]. Review of Systems Const Denies poor appetite and Denies weakness Eyes Denies no additional complaints ENT Reports Normal hearing present, Denies dizziness, Denies nasal congestion, Denies tinnitus and Denies sore throat Card Denies chest pain, Denies syncope, Denies rapid heart rate and Denies dyspnea Resp Denies cough and Denies dyspnea GI Denies change in stool character, Reports constipation, Denies diarrhea, Denies nausea and Denies vomiting Denies urinary frequency, Denies difficulty voiding and Denies dysuria Neuro Reports Normal hearing present, Denies confusion, Denies dizziness, Denies syncope and Denies weakness Psych Denies confusion Physical Exam Vital Signs: Last Vital Signs Pulse 49 L 02/13/24 11:03 BP 130/68 02/13/24 11:03 Pulse Ox 98 02/13/24 11:03 Oxygen Delivery Method Room Air 02/13/24 11:03 BMI result Body Mass Index 26.2 Const General: No confusion Orientation/consciousness: No confusion HEENT Head: Yes normocephalic Ears: external ears normal and TM's normal bilaterally Face and sinus: Yes normal facial exam Mouth: moist mucous membranes Throat: Yes tonsils normal Eyes Conjunctivae: conjunctivae normal Pupils: Equal, round and reactive pupils present and Pupil accommodation reflex normal Direct Ophthalmoscopy: normal light reflex Neck Neck: No lymphadenopathy Thyroid: Thyroid normal Chest Chest palpation & inspection: normal inspection of the chest Resp Effort & Inspection: normal respiratory effort and no audible wheezes Auscultation: clear to auscultation bilaterally, no crackles, no wheezes and lung sounds not diminished Cardio Rate: regular rate Rhythm: regular rhythm Peripheral pulses: radial pulses present and dorsalis pedis present GI Palpation (GI): no masses Auscultation: normal bowel sounds and normoactive bowel sounds Rectal Exam - Female: deferred Skin General skin exam: no rashes or lesions noted Rashes: no rashes Neuro General: No confusion Cranial nerves: Yes Equal, round and reactive pupils present and Yes Normal hearing present Cognition (Neuro): normal cognition Gait exam (Neuro): Normal gait present Motor exam (neuro): 5/5 motor strength present throughout Deep tendon reflexes (DTR's): Right brachioradialis reflex intensity grade: 2+, Left brachioradialis reflex intensity grade: 2+, Right patellar reflex intensity grade: 2+ and Left patellar reflex intensity grade: 2+ Extrem General: No edema Assessment & Plan Assessment & Plan (1) Medicare annual wellness visit, subsequent: Code(s): Z00.00 - Encounter for general adult medical examination without abnormal findings Plan: Patient is advised to eat healthy, keep well hydrated, keep active and have adequate sleep. (2) Takotsubo cardiomyopathy: Comment: March 2023Normal left ventricular cavity size. The left ventricular systolic function is low normal. The visually estimated ejection fraction is between 50-55%. - There is paradoxical septal motion consistent with a left bundle branch block. Code(s): I51.81 - Takotsubo syndrome Plan: Continue to follow up with Cardiology (3) Osteoporosis: Comment: 05/2023 Code(s): M81.0 - Age-related osteoporosis without current pathological fracture Plan: Patient has spoken to the corporate statistical financial analyst and discussed about calcium and vitamin-D and plannedEvenity (4) Coronary artery disease: Comment: Angioplasty March 2015 Dr. Zahra Dawn, dr. Tadeo 10/06/2022 showing left main normal, lad mid 75% stenosis, IFR 0.87, 1st diagonal 60% stenosis, left circumflex minimal irregularities, RCA mid 80% stenosis, distal 90% stenosis plan for PCI with arthrectomy verses Coronary artery bypass grafting, RCA is culprit lesion Code(s): I25.10 - Atherosclerotic heart disease of [place] coronary artery without angina pectoris Qualifiers: Coronary Disease-Associated Artery/Lesion type: [place] artery [place] vs. transplanted heart: [place] heart Associated angina: without angina Qualified Code(s): I25.10 - Atherosclerotic heart disease of [place] coronary artery without angina pectoris Plan: Control the cholesterol, weight, blood pressure, patient on clopidogrel (5) Hypercholesterolemia: Code(s): E78.00 - Pure hypercholesterolemia, unspecified Plan: Avoid fried foods, chicken skin, eggs, butter margarine, pastries and meat. Be it pork or beef they have a lot of cholesterol Lew last blood work LDL goal of less than 70 and triglyceride of less than 150 on rosuvastatin 40 mg once a day and Zetia 10 mg once a day (6) Hypertension: Code(s): I10 - Essential (primary) hypertension Qualifiers: Hypertension type: essential hypertension Qualified Code(s): I10 - Essential (primary) hypertension Plan: Continue with blood pressure medication. Decrease salt intake and exercise presently on metoprolol 25 mg twice a day (7) GERD (gastroesophageal reflux disease): Code(s): K21.9 - Gastro-esophageal reflux disease without esophagitis Qualifiers: Esophagitis presence: without esophagitis Qualified Code(s): K21.9 - Gastro-esophageal reflux disease without esophagitis Plan: Avoid the foods that causes that usually spicy foods, tomato products, juices, coffee, soda and foods that your sensitive to. After eating do not lie down, allow 3-4 hours before in lie down. And keep the head of bed above 30 degrees to avoid the acid from going up. (8) Generalized anxiety disorder: Comment: Declined counseling Code(s): F41.1 - Generalized anxiety disorder Plan: Continue with present therapy (9) History of breast cancer: Comment: 2007 Dr. Conde left breast lumpectomy and radiation finished letrozole 2014 Code(s): Z85.3 - Personal history of malignant neoplasm of breast Plan: Patient is up-to-date with mammogram Orders: Orders Complete Blood Count Auto Diff 5 Months I21.4 - Non-ST elevation (NSTEMI) myocardial infarction Comprehensive Met. Panel 5 Months I21.4 - Non-ST elevation (NSTEMI) myocardial infarction Free T4 (Free Thyroxine) 5 Months I21.4 - Non-ST elevation (NSTEMI) myocardial infarction Vitamin B12 and Folate 5 Months I21.4 - Non-ST elevation (NSTEMI) myocardial infarction Lipid Panel 5 Months E78.00 - Pure hypercholesterolemia, unspecified, I21.4 - Non-ST elevation (NSTEMI) myocardial infarction Thyroid Stimulating Hormone 5 Months I21.4 - Non-ST elevation (NSTEMI) myocardial infarction Vitamin D 25-OH Total 5 Months I21.4 - Non-ST elevation (NSTEMI) myocardial infarction Quality Reporting (2019) Depression/Bipolar (159/160/161/177) PHQ-9: Total score: 11 Coding Level of Care Code Medicare Subsequent (G0439) Diagnoses Medicare annual wellness visit, subsequent Z00.00 Takotsubo cardiomyopathy I51.81 Osteoporosis M81.0 Coronary artery disease involving [place] coronary artery of [place] heart without angina pectoris I25.10 Coronary Disease-Associated Artery/Lesion type: [place] artery [place] vs. transplanted heart: [place] heart Associated angina: without angina Hypercholesterolemia E78.00 Essential hypertension I10 Hypertension type: essential hypertension Gastroesophageal reflux disease without esophagitis K21.9 Esophagitis presence: without esophagitis Generalized anxiety disorder F41.1 History of breast cancer Z85.3
== END 2024-02-13 11:54 | disposition home or self-care (01) ==
PROVIDERS: PCP Internal Medicine; Visit Provider Internal Medicine
DX: Z00.00 Encounter for general adult medical examination without abnormal findings (principal); I51.81 Takotsubo syndrome; M81.0 Age-related osteoporosis without current pathological fracture; I25.10 Atherosclerotic heart disease of native coronary artery without angina pectoris; E78.00 Pure hypercholesterolemia, unspecified; I10 Essential (primary) hypertension; K21.9 Gastro-esophageal reflux disease without esophagitis; F41.1 Generalized anxiety disorder; Z85.3 Personal history of malignant neoplasm of breast
CPT/HCPCS: G0439

== ENCOUNTER 2024-07-15 09:37 | Outpatient (REF) | payer MEDICARE, SELFPAY ==
[2024-07-15 09:58] LABS: MANUAL DIFF FLAG NO
[2024-07-15 10:10] LABS: Basophils Percent Auto 0.6 % (0-2); Eosinophils Percent Auto 0.2 % (0-4); Hematocrit 42.5 % (37.0-47.0); Hemoglobin 14.3 g/dl (12.0-16.0); Imm Gran Abs Auto 0.01 X10*3/uL (0.00-0.03); Imm Gran Pct Auto 0.2 % (0.0-0.4); Lymphocytes Absolute Auto 1.7 X10*3/uL (1.2-4.9); Lymphocytes Percent Auto 36.4 % (20-40); Mean Corpuscular HGB Conc 33.6 g/dl (31.0-35.0); Mean Corpuscular Hemoglobin 30.9 pg (27.0-33.0); Mean Corpuscular Volume 91.8 fL (80.0-98.0); Mean Platelet Volume 10.1 fL (9.4-12.3); Monocytes Absolute Auto 0.4 X10*3/uL (0.1-1.2); Monocytes Percent Auto 9.1 % (2-11); Neutrophils Absolute Auto 2.5 x10*3/uL (2.0-8.3); Neutrophils Percent Auto 53.5 % (45-73); Platelet Count 225 X10*3/uL (160-400); Red Blood Count 4.63 X10*6/uL (4.20-5.50); Red Cell Distribution Width 12.2 % (11.0-16.0); White Blood Count 4.7 X10*3/uL (4.8-10.8)
[2024-07-15 11:08] LABS: Alanine Aminotransferase 42 U/L (0-31); Albumin Level 4.1 g/dL (3.5-5.0); Alkaline Phosphatase 59 U/L (39-117); Anion Gap 10 (12-20); Aspartate Amino Transferase 44 U/L (5-31); Bilirubin Total 0.5 mg/dL (0.0-1.0); Blood Urea Nitrogen 14 mg/dL (9-16); Calcium 9.5 mg/dL (8.4-10.2); Carbon Dioxide 29 mmol/L (22-29); Chloride 107 mmol/L (96-108); Cholesterol 160 mg/dL (<200); Estimated Glomerular Filt Rate > 60; Free T4 (Free Thyroxine) 0.94 ng/dL (0.71-1.85); Glucose Random 100 mg/dL (60-115); HDL Cholesterol 58 mg/dL (>40); LDL Cholesterol Calculated 76 mg/dL (<100); Potassium 4.4 mmol/L (3.3-5.1); Sodium 142 mmol/L (135-145); Thyroid Stimulating Hormone 1.68 uIU/mL (0.32-4.0); Total Protein 7.6 g/dL (6.5-8.0); Triglycerides 132 mg/dL (<150); Vitamin D 25-OH Total 49.4 ng/mL (>30)
[2024-07-15 11:27] LABS: Folate 14.8 ng/mL (> or = 4.0); Vitamin B12 522 pg/mL (200-900)
--- OUTSIDE RECORDS SUMMARY | 2024-07-17 14:02 | XMS_ITS | Continuity of Care Document ---
Author Organization [facility] Address [address] [place] [address] Phone [phone] Care Team Providers Care Recreational Therapist Name Role Phone Jose De JesusSourav Care Team Information Newborn Hearing Screener + [phone] Problems Active Problems Provider Date Essential hypertension Heidi Doyle Onset: 12/29/2023 Hypercholesterolemia Jyoti Doyle Onset: 12/29/2023 Osteoporosis Nelda Parsons M.D. Ons et: 12/29/2023 Anxiety Nelda Parsons M.D. Ons et: 12/29/2023 Depressive disorder Nelda Parsons M.D. Onset: 12/29/2023 Carcinoma of breast Nelda Parsons M.D. Onset: 12/29/2023 Takotsubo cardiomyopathy Nelda Parsons M.D. Onset: 12/29/2023 Coronary arteriosclerosis Nelda aPrsons M.D. Onset: 12/29/2023 Non-alcoholic fatty liver Nelda Parsons M.D. Onset: 12/29/2023 Left bundle branch block Nelda Parsons M.D. Onset: 12/29/2023 Social History Type Date Description Comments Sex Unknown Lives With Alone Work Status Retired ETOH Use Occasionally consumes wine Tobacco Use Start: Unknown Patient has never smoked Allergies and adverse reactions Active Allergies Criticality Reaction Severity Comments Date Lisinopril Unable to assess criticality Anaphylaxis 12/14/2023 Sulfa Antibiotics Unable to assess criticality Urticaria 12/14/2023 Amoxicillin Unable to assess criticality Urticaria 12/14/2023 Atenolol Unable to assess criticality 12/29/2023 Medications Active Medications SIG Qnty Indications Ordering Provider Date [id number] Tablets 1 daily Po, Lorenve r Metoprolol [id number] Tablets 2 daily Po, Lorenver Xbkvrvmpi21uk Tablets 1 daily Po, Usha nver Rosuvastatin Aooajfe85ht Tablets 1 daily Po, Lorenver 00 Trazodone UIU14gt Tablets 1 daily Po, Lorenver Sertraline [id number] Tablets 1 daily Po, Lorenver Vitamin Y616lkz Capsules 1 by mouth every day Unknown Aspir-Dvp49eg Tablets DR Rachel Multivitamin Adults 50+Adlt 50+ Tablets 1 by mouth every day Nelda Parsons M.D. Citracal Wasutvj219-7.25mg-mcg Tablets 1 by mouth every day Nelda Parsons M.D. Vital Signs Date Vital Result Comment 04/25/2024 11:02am BP Systolic 140 mmHg BP Diastolic 90 mmHg Heart Rate 55 /min Height 64 inches 5'4 Weight 150.00 lb BMI (Body Mass Index) 25.7 kg/m2 Results Test Acquired Date Facility Test Result H/L Range N ote Laboratory test finding 05/22/2024 [facility] Calcium 9.7 mg/dL 8.7-10.3 N-Telopeptide, Urine 01/03/2024 [facility] N-Telopeptide 198 nmolBCE Not Estab. Creatinine, Urine 78.9 mg/dL Not Estab. N-Telo/Creat. Ratio 28 nMBCE/mMCr 0-89 Interpretive Guide: See Comment: 1 Comp. Metabolic Panel (14) 01/02/2024 [facility] Glucose 108 mg/dL High 70-99 BUN 15 mg/dL 8-27 Creatinine 0.84 mg/dL 0.57-1.00 eGFR 72 mL/min/1.73 >59 BUN/Creatinine Ratio 18 12-28 Sodium 143 mmol/L 134-144 Potassium 4.0 mmol/L 3.5-5.2 Chloride 106 mmol/L 96-106 Carbon Dioxide, Total 23 mmol/L 20-29 Calcium 9.7 mg/dL 8.7-10.3 Protein, Total 6.9 g/dL 6.0-8.5 Albumin 4.5 g/dL 3.8-4.8 Globulin, Total 2.4 g/dL 1.5-4.5 A/G Ratio 1.9 1.2-2.2 Bilirubin, Total 0.4 mg/dL 0.0-1 .2 Alkaline Phosphatase 51 IU/L 44-121 Ast (Sgot) 27 IU/L 0-40 Alt (SGPT) 19 IU/L 0-32 CBC With Differential/Pl atelet 01/02/2024 [facility] WBC 5.1 x10E3/uL 3.4-10.8 RBC 4.49 x10E6/uL 3.77-5.28 Hemoglobin 14.0 g/dL 11.1-15.9 Hematocrit 41.6 % 34.0-46.6 MCV 93 fL 79-97 MCH 31.2 pg 26.6-33.0 MCHC 33.7 g/dL 31.5-35.7 RDW 12.4 % 11.7-15.4 Platelets 193 x10E3/uL 150-450 Neutrophils 54 % Not Estab. Lymphs 37 % Not Estab. Monocytes 8 % Not Estab. Eos 1 % Not Estab. Basos 0 % Not Estab. Immature Cells TNP Neutrophils (Absolute) 2.7 x10E3/uL 1.4-7.0 Lymphs (Absolute) 1.9 x10E3/uL 0 .7-3.1 Monocytes(Absol ut e) 0.4 x10E3/uL 0.1-0.9 Eos (Absolute) 0.0 x10E3/uL 0.0- 0.4 Baso (Absolute) 0.0 x10E3/uL 0.0 -0.2 Immature Granulocytes 0 % Not Estab. Immature Grans (Abs) 0.0 x10E3/uL 0.0-0.1 NRBC TNP Hematology Comments: TNP TSH+Free T4 01/02/2024 [facility] TSH 2.110 uIU/mL 0.450-4.5 00 T4,Free(Direct) 0.98 ng/dL 0.82- 1.77 Laboratory test finding 01/02/2024 [facility] PTH, Intact 44 pg/mL 15-65 Phosphorus 3.1 mg/dL 3.0-4.3 Vitamin D, 25-Hydroxy 42.8 ng/mL 30.0-100. 0 2 1 The N-telopeptide an d Creatinine are used to calculate the N-telo/Creat. Ratio which is referred to as NTx . Suggested guidelines for the clinical use of NTx are as follows: 1. Menopausal Women not on Hormone Replacement Therapy (HRT): Women with a baseline NTx value >38 are at significant risk for a decrease in bone mineral density (BMD) after 1 year compared to women on HRT. The probability of a decline in BMD increases with NTx value as follows: (1): Baseline NTx Probability of Decrease in BMD 18- 38 1.4 p=0.28 38- 51 2.5 p=0.03 51- 67 3.8 p=0.0006 67-188 17.3 p=0.0001 2. Menopausal Women Receiving Antiresorptive Therapy: The probability that treatment is effective after three months is increased when the measured NTx value is <or=38 nM BCE/mM ENGINEERING AND DEVELOPMENT DIRECTOR, or NTx has decreased >or=30% from baseline.[1] 3. Patients with Paget's Disease of Bone: The probability that treatment is effective after one month is increased when the measured NTx value is within the reference range, or NTx has decreased >or=30% from baseline.[2] 1. Xuan CH, Cielo NH, Charlie GS, et al. Am J Med, 102:29-37,1997. (1):M757, 1996. 2. Bone H, Samir J, et al. J Bone Min Res.11(1):M757,1996 2 Vitamin D deficiency has been defined by the [place] of [employer] and an Endocrine Society practice guideline as a level of serum 25-OH vitamin D less than 20 ng/mL (1,2). The Endocrine Society went on to further define vitamin D insufficiency as a level between 21 and 29 ng/mL (2). 1. IOM ([place] of [employer]). 2010. Dietary reference intakes for calcium and D. [place]: The National Academies Press. 2. Marisa MF, Nazia NC, Kaylin BOYLE, et al. Evaluation, treatment, and prevention of vitamin D deficiency: an Endocrine Society clinical practice guideline. JCEM. 2010; 96(4):4057-30. Medical Devices Description No Information Available Encounters Type Date Location Provider Dx Diagnosis Office Visit 04/25/2024 10:45a Main Office Nelda Parsons M.D. M81.0 Age-related osteoporosis w/o current pathological fracture Assessments Date Code Description Provider 04/25/2024 M81.0 Age-related oste oporosis without current pathological fracture Nelda Parsons M.D. Plan of Treatment Future Appointment(s):* 09/17/2024 8:45 am - Nelda Parsons M.D. at Main Office 04/25/2024 - Nelda Parsons M.D.* M81.0 Age-related osteoporosis without current pathological fracture Functional Status Description No Information Available Mental Status Description No Information Available Referrals Description No Information Available
== END 2024-07-15 09:38 | disposition home or self-care (01) ==
LOC: HO.LAB 09:37
PROVIDERS: PCP Internal Medicine; Visit Provider Internal Medicine
DX: I21.4 Non-ST elevation (NSTEMI) myocardial infarction (principal); E78.00 Pure hypercholesterolemia, unspecified
CPT/HCPCS: 36415; 80053; 80061; 82306; 82607; 82746; 84439; 84443; 85025

== ENCOUNTER 2024-08-15 09:45 | Outpatient (AMB) | payer MEDICARE, SELFPAY ==
[2024-08-15 09:56] VITALS: BP 134/68; PULSE 71; O2SAT 98; BMI 27.6
--- NOTE | 2024-08-15 09:56 | MHC.PC.OV ---
Vital Signs 08/15/24 09:56 Height 5 ft 3 in Weight 156 lb BMI 27.6 BP 134/68 Blood Pressure Location Lt brachial Position Sitting Pulse 71 Pulse Source Pulse Oximeter Pulse Oximetry (%) 98 Oxygen Delivery Method Room Air Intake Visit Reasons: Coronary artery disease Allergies lisinopril Allergy (Severe, Verified 08/15/24 09:56) anaphylaxis amoxicillin Allergy (Intermediate, Verified 08/15/24 09:56) rash atenolol Allergy (Intermediate, Verified 08/15/24 09:56) rash Sulfa (Sulfonamide Antibiotics) Allergy (Intermediate, Verified 08/15/24 09:56) rash Tobacco use date assessed: 08/15/24 Fall risk assessment: No Falls in past year Last assessed Fall Risk: 08/15/24 Dental Screening Dental Screen Date: 08/15/24 Did you have a dental visit in the last 12 months?: Yes Did you have a dental problem in the last 6 months where you did not have access to dental care?: No Was dental information given to patient?: Patient has dentist HPI Coronary artery disease HPI Details The patient is a 74-year-old female presenting with evaluation of weight loss, depression, and a plantar callus on her right foot. The patient reports significant weight loss beginning in February, correlated with a period of decreased appetite following familial stress and bereavement. Psychological well-being remains a concern, with the patient expressing feelings of stagnation and difficulty during the holidays. She is currently on Zoloft and considering discontinuing it but has not done so. The patient also identifies a concern regarding a hard callus on the right foot, noticed since the summer, which she reports as uncomfortable. It is noted that there is no similar presentation on the left foot. The patient queries regarding its classification as either a plantar wart or bunion but recognizes it as a hard callus. Additionally, the patient reports recent changes in prescription medication management, particularly a discrepancy in refill duration for a prior prescription. She additionally inquires about changes from aspirin to Plavix as a preventative measure following previous vascular events. She reports consuming an increased amount of junk food recently, as suggested by elevated serum glucose and liver function test results noted in recent blood work. She has not maintained a consistent exercise routine due to constraints and weather conditions. The patient's chronic issues include hyperlipidemia managed with the highest dose of rosuvastatin. [facility] Medical History (Updated 08/15/24 @ 10:45 by Sourav Dela Cruz MD) History of breast cancer Colon cancer screening Stable angina COVID-19 vaccine series completed Shingles Fracture of distal phalanx of finger of right hand Fatty liver GERD (gastroesophageal reflux disease) Hypertension Hypercholesterolemia Coronary artery disease Surgical History S/P CABG x 3 H/O colonoscopy History of angioplasty History of lumpectomy of left breast History of tubal ligation Family History Father CHF (congestive heart failure) CVD (cardiovascular disease) Mother Myocardial infarction CVD (cardiovascular disease) Brother Myocardial infarction Social History (Updated 02/13/24 @ 11:36 by Sourav Dela Cruz MD) Household Members: Spouse Housing: House Do you presently have visiting nurse or other home services: Yes Alcohol intake: current Alcohol intake frequency: a few times a week Alcohol type: wine Comment: 2-4 x a week glass of wine Patient Tobacco Use Status: Never used Tobacco Tobacco use type: Cigarette e-Cigarette/Vaping Use: Never Used Second Hand Smoke Exposure: No service: No Current occupational status: retired Cognitive needs: No Hearing needs: No Vision needs: Yes Questionnaire PHQ-9 Over the last 2 weeks, how often have you been bothered by any of the following problems? 1. Little interest or pleasure in doing things: more than half the days 2. Feeling down, depressed, or hopeless: more than half the days 3. Trouble falling or staying asleep, or sleeping too much: more than half the days 4. Feeling tired or having little energy: several days 5. Poor appetite or overeating: more than half the days 6. Feeling bad about yourself - or that you are a failure or have let yourself or your family down: not at all 7. Trouble concentrating on things, such as reading the newspaper or watching television: several days 8. Moving or speaking so slowly that other people could have noticed. Or the opposite - being so fidgety or restless that you have been moving around a lot more than usual: several days 9. Thoughts that you would be better off or of hurting yourself in some way: not at all Total score: 11 Depression Screening Interpretation: Positive Depression Screening Done: Yes Source: Developed by Melissa Hernadez Kurt Kroenke and colleagues, with an educational kym from to be. Thrive Questionnaire Date Thrive assessed: 08/15/24 I am a: Patient What is your living situation today?: I have a steady place to live Within the past 12 months, did the food you bought not last and you didn't have the money to get more?: Never true Within the past 12 months, did you worry whether your food would run out before you got money to buy more?: Never true Do you have trouble paying for medicines?: No Do you have trouble getting transportation to medical appointments?: No Do you have trouble paying your heating and electricity bill?: No Do you have trouble taking care of your child, family member or friend?: No Do you have trouble with day-to-day activities such as bathing, preparing meals, shopping, managing finances, etc.?: No Are you currently unemployed and looking for a job?: No Are you interested in more education?: No Currently or been in a relationship where the following occur: No concerns reported THRIVE Score: 0 AUDIT C Alcohol Use Questionnaire (AUDIT-C) 2. How many drinks containing alcohol do you have on a typical day when you are drinking?: 1 or 2 3. How often do you have six or more drinks on one occasion?: Never Total Score: 0 TRI-7 AMB Questionnaire TRI-7 Date TRI - 7 assessed: 08/15/24 Feeling nervous, anxious, or on edge: 1 = Several days Not being able to stop or control worryin = Several days Worrying too much about different things: 1 = Several days Trouble relaxin = Not at all Being so restless that it is hard to sit still: 0 = Not at all Becoming easily annoyed or irritable: 0 = Not at all Feeling afraid as if something awful might happen: 0 = Not at all Total TRI-7 score (0-4 normal; 5-9 mild; 10-14 moderate; 15-21 severe): 3 Source: Developed by Melissa Hernadez Kurt Kroenke and colleagues, with an educational kym from to be. Physical exam (Primary Care) Vital Signs: Last Vital Signs Pulse 71 08/15/24 09:56 BP 134/68 08/15/24 09:56 Pulse Ox 98 08/15/24 09:56 Oxygen Delivery Method Room Air 08/15/24 09:56 BMI result Body Mass Index 27.6 Tobacco/Smoking Status: Tobacco use Status Tobacco use date assessed 08/15/24 08/15/24 09:57 Patient Tobacco Use Status Never used Tobacco 08/15/24 09:57 Tobacco use type Cigarette 08/15/24 09:57 e-Cigarette/Vaping Use Never Used 08/15/24 09:57 PHQ-9: PHQ-9 Score PHQ-9: Total score 11 08/15/24 10:37 Depression Screening Interpretation: Positive Thrive Assessment: Date of Thrive Assessment Date Thrive assessed 08/15/24 08/15/24 09:57 Currently or been in a relationship where the following occur: No concerns reported Const General: alert; No acute distress Eyes Conjunctivae: conjunctivae normal Resp Auscultation: clear to auscultation bilaterally Cardio Rate: regular rate Rhythm: regular rhythm GI Inspection: Yes normal to inspection Extrem General: Yes normal to inspection and No edema Coding Level of Care Code Est Pt Level 4 (16843) Complex EM visit Add On G2211 Diagnoses History of breast cancer Z85.3 Coronary artery disease involving [place] coronary artery of [place] heart without angina pectoris I25.10 Associated angina: without angina Coronary Disease-Associated Artery/Lesion type: [place] artery [place] vs. transplanted heart: [place] heart Hypercholesterolemia E78.00 Essential hypertension I10 Hypertension type: essential hypertension Gastroesophageal reflux disease without esophagitis K21.9 Esophagitis presence: without esophagitis Generalized anxiety disorder F41.1 Major depression F32.9 Callus of foot L84 LFT elevation R79.89 Assessment & Plan Assessment & Plan (1) History of breast cancer: Comment: 2007 Dr. Conde left breast lumpectomy and radiation finished letrozole 2014 Code(s): Z85.3 - Personal history of malignant neoplasm of breast Category: Medical (2) Coronary artery disease: Comment: Angioplasty March 2015 Dr. Zahra Dawn, dr. Tadeo 10/06/2022 showing left main normal, lad mid 75% stenosis, IFR 0.87, 1st diagonal 60% stenosis, left circumflex minimal irregularities, RCA mid 80% stenosis, distal 90% stenosis plan for PCI with arthrectomy verses Coronary artery bypass grafting, RCA is culprit lesion Code(s): I25.10 - Atherosclerotic heart disease of [place] coronary artery without angina pectoris Category: Medical Qualifiers: Associated angina: without angina Coronary Disease-Associated Artery/Lesion type: [place] artery [place] vs. transplanted heart: [place] heart Qualified Code(s): I25.10 - Atherosclerotic heart disease of [place] coronary artery without angina pectoris (3) Hypercholesterolemia: Code(s): E78.00 - Pure hypercholesterolemia, unspecified Category: Medical (4) Hypertension: Code(s): I10 - Essential (primary) hypertension Category: Medical Qualifiers: Hypertension type: essential hypertension Qualified Code(s): I10 - Essential (primary) hypertension (5) GERD (gastroesophageal reflux disease): Code(s): K21.9 - Gastro-esophageal reflux disease without esophagitis Category: Medical Qualifiers: Esophagitis presence: without esophagitis Qualified Code(s): K21.9 - Gastro-esophageal reflux disease without esophagitis (6) Generalized anxiety disorder: Comment: Declined counseling Code(s): F41.1 - Generalized anxiety disorder Category: Medical (7) Major depression: Code(s): F32.9 - Major depressive disorder, single episode, unspecified Category: Medical (8) Callus of foot: Comment: right Code(s): L84 - Corns and callosities Category: Medical (9) LFT elevation: Code(s): R79.89 - Other specified abnormal findings of blood chemistry Category: Medical Plan - Weight loss: Further evaluation of psychiatric status with referral to psychiatric services and encouragement of nutritional guidance to address dietary habits. - Depression: Initiation of psychiatric evaluation, with exploration for potential counseling options. - Plantar callus: Recommend evaluation by a test analyst to assess and manage right foot callus conservatively. - Hyperlipidemia: Continued monitoring with fasting blood tests scheduled for lipid profile reevaluation in three months. Encouragement of lifestyle modifications. - Elevated liver enzymes: An ultrasound of the liver has been ordered to assess for possible steatosis or other hepatic pathology, and repeated assessments are planned. - Vaso-spastic angina: Continue current medication regimen with Plavix as recommended; no changes to be made unless advised by the cyber incident responder. Follow-up with cardiology advised as scheduled in October. - Preventative care: Ensure vaccinations are current, with reminders to consider RSV, flu, or COVID vaccinations if desired. - Follow-up: Comprehensive follow-up in three months integrating results from further specialty consultations and additional laboratory tests. Orders: Orders US abdomen complete Today R79.89 - Other specified abnormal findings of blood chemistry Thyroid Stimulating Hormone 3 Months I25.10 - Atherosclerotic heart disease of [place] coronary artery without angina pectoris Complete Blood Count Auto Diff 3 Months I25.10 - Atherosclerotic heart disease of [place] coronary artery without angina pectoris Comprehensive Met. Panel 3 Months I25.10 - Atherosclerotic heart disease of [place] coronary artery without angina pectoris Hemoglobin A1c 3 Months I25.10 - Atherosclerotic heart disease of [place] coronary artery without angina pectoris Lipid Panel 3 Months E78.00 - Pure hypercholesterolemia, unspecified, I25.10 - Atherosclerotic heart disease of [place] coronary artery without angina pectoris Free T4 (Free Thyroxine) 3 Months I25.10 - Atherosclerotic heart disease of [place] coronary artery without angina pectoris Referrals Psychiatry Outpatient Consultation Service F32.9 - Major depressive disorder, single episode, unspecified Podiatry Referral L84 - Corns and callosities
--- OUTSIDE RECORDS SUMMARY | 2024-08-15 10:09 | XMS_ITS | Continuity of Care Document ---
Author Organization [facility] Address [address] [place] [address] Phone [phone] Care Team Providers Care Interstate Bus Dispatcher Name Role Phone Jose De JesusSourav Care Team Information Tile And Marble Setter + [phone] Problems Active Problems Provider Date Essential hypertension Heidi Doyle Onset: 12/29/2023 Hypercholesterolemia yJoti Doyle Onset: 12/29/2023 Osteoporosis Nelda Parsons M.D. Ons et: 12/29/2023 Anxiety Nelda Parsons M.D. Ons et: 12/29/2023 Depressive disorder Nelda Parsons M.D. Onset: 12/29/2023 Carcinoma of breast Nelda Parsons M.D. Onset: 12/29/2023 Takotsubo cardiomyopathy Nelda Parsons M.D. Onset: 12/29/2023 Coronary arteriosclerosis Nelda Parsons M.D. Onset: 12/29/2023 Non-alcoholic fatty liver Nelda [...] Medications SIG Qnty Indications Ordering Provider Date Phejdm15ja Tablets 1 daily Po, Lorenve r Metoprolol Fobbdjwg53gj Tablets 2 daily Po, Lorenver Nowguedtp37fq Tablets 1 daily Po, Usha nver Rosuvastatin Ytzleet93he Tablets 1 daily Po, Lorenver 00 Trazodone RFD76eu Tablets 1 daily Po, Lorenver Sertraline QGX845ie Tablets 1 daily Po, Lorenver Vitamin I841glp Capsules 1 by mouth every day Unknown Aspir-Awh87xk Tablets DR Rachel Multivitamin Adults 50+Adlt 50+ Tablets 1 by mouth every day Nelda Parsons M.D. Citracal Nsdfehb926-8.25mg-mcg Tablets 1 by mouth every day Nelda [...] measured NTx value is <or=38 nM BCE/mM TERRAZZO ROLLER, or NTx has decreased >or=30% from baseline.[1] [...] D deficiency has been defined by the [place] of [employer] and an Endocrine Society practice guideline as a level of serum 25-OH vitamin D less than 20 ng/mL (1,2). The Endocrine Society went on to further define vitamin D insufficiency as a level between 21 and 29 ng/mL (2). 1. IOM ([place] of [employer]). 2010. Dietary reference intakes for calcium and D. [place]: The National Academies Press. 2. Marisa MF, Nazia [place], Kaylin BOYLE, et al. Evaluation, treatment, and prevention of vitamin D deficiency: an Endocrine Society clinical practice guideline. JCEM. 2010; 96(2):3110-30. Medical Devices Description No Information Available Encounters [...]
== END 2024-08-15 11:02 | disposition home or self-care (01) ==
PROVIDERS: PCP Internal Medicine; Visit Provider Internal Medicine
DX: Z85.3 Personal history of malignant neoplasm of breast (principal); I25.10 Atherosclerotic heart disease of native coronary artery without angina pectoris; E78.00 Pure hypercholesterolemia, unspecified; I10 Essential (primary) hypertension; K21.9 Gastro-esophageal reflux disease without esophagitis; F41.1 Generalized anxiety disorder; F32.9 Major depressive disorder, single episode, unspecified; L84 Corns and callosities; R79.89 Other specified abnormal findings of blood chemistry

== ENCOUNTER → 2024-08-15 09:45 | Outpatient (BNVA) | payer MEDICARE, SELFPAY | PROVIDERS: PCP Internal Medicine; Visit Provider Internal Medicine | DX: I25.10 Atherosclerotic heart disease of native coronary artery without angina pectoris (principal); I10 Essential (primary) hypertension; L84 Corns and callosities; E78.00 Pure hypercholesterolemia, unspecified; K21.9 Gastro-esophageal reflux disease without esophagitis; F41.1 Generalized anxiety disorder; F32.9 Major depressive disorder, single episode, unspecified; R79.89 Other specified abnormal findings of blood chemistry; Z85.3 Personal history of malignant neoplasm of breast | CPT/HCPCS: 96127; 99212 ==

== ENCOUNTER → 2024-09-06 08:43 | Outpatient (BNV) | payer MEDICARE, SELFPAY | PROVIDERS: PCP Internal Medicine; Visit Provider Radiology Vascular & Interventional Radiology | DX: R79.89 Other specified abnormal findings of blood chemistry (principal) | CPT/HCPCS: 76700 ==

== ENCOUNTER 2024-11-06 07:10 | Outpatient (REF) | payer MEDICARE, SELFPAY ==
--- OUTSIDE RECORDS SUMMARY | 2024-11-06 07:14 | XMS_ITS | Continuity of Care Document ---
Author Organization [facility] Address [address] [place] [address] Phone [phone] Care Team Providers Care Internist Medical Doctor Md Name Role Phone Jose De JesusSourav Care Team Information Train Director + [phone] Problems Active Problems Provider Date Essential hypertension [...] Medications SIG Qnty Indications Ordering Provider Date Ocbsym23he Tablets 1 daily Po, Lorenve r Metoprolol Qhcjxnut83su Tablets 2 daily Po, Lorenver Fjkgmcelp09wc Tablets 1 daily Po, Usha nver Rosuvastatin Osgjtxq88dw Tablets 1 daily Po, Lorenver 00 Trazodone CHB22ft Tablets 1 daily Po, Lorenver Sertraline BEW108bt Tablets 1 daily Po, Lorenver Vitamin H630sbh Capsules 1 by mouth every day Unknown Aspir-Nwa78dd Tablets DR Rachel Multivitamin Adults 50+Adlt 50+ Tablets 1 by mouth every day Nelda Parsons M.D. Citracal Uyxuegw719-7.25mg-mcg Tablets 1 by mouth every day Nelda Parsons M.D. Vital Signs Date Vital Result Comment 09/17/2024 8:16am BP Systolic 120 mmHg BP Diastolic 68 mmHg Heart Rate 54 /min Height 64 inches 5'4 Weight 155.00 lb BMI (Body Mass Index) 26.6 kg/m2 Results Test Acquired Date Facility Test Result H/L Range N ote Albumin 09/17/2024 [facility] Albumin 4.4 g/dL 3.8-4.8 Basic Metabolic Panel (8) 09/17/2024 [facility] Glucose 100 mg/dL High 70-99 BUN 12 mg/dL 8-27 Creatinine 0.83 mg/dL 0.57-1.00 eGFR 73 mL/min/1.73 >59 BUN/Creatinine Ratio 14 12-28 Sodium 142 mmol/L 134-144 Potassium 4.5 mmol/L 3.5-5.2 Chloride 106 mmol/L 96-106 Carbon Dioxide, Total 25 mmol/L 20-29 Calcium 9.8 mg/dL 8.7-10.3 Calcium 05/22/2024 [facility] Calcium 9.7 mg/dL 8.7-10.3 N-Telopeptide, [...] 0.450-4.5 00 T4,Free(Direct) 0.98 ng/dL 0.82- 1.77 PTH, Intact 01/02/2024 [facility] PTH, Intact 44 pg/mL 15-65 Phosphorus 01/02/2024 [facility] Phosphorus 3.1 mg/dL 3.0-4.3 Vitamin D, 25-Hydroxy 01/02/2024 [facility] Vitamin D, 25-Hydroxy 42.8 ng/mL 30.0-100. 0 [...] measured NTx value is <or=38 nM BCE/mM BRICK PITCHER, or NTx has decreased >or=30% from baseline.[1] [...] D deficiency has been defined by the [place] of [employer] and an Endocrine Society practice guideline as a level of serum 25-OH vitamin D less than 20 ng/mL (1,2). The Endocrine Society went on to further define vitamin D insufficiency as a level between 21 and 29 ng/mL (2). 1. IOM ([place] of [employer]). 2010. Dietary reference intakes for calcium and D. [place]: The National Academies Press. 2. Marisa MF, Nazia [place], Kaylin BOYLE, et al. Evaluation, treatment, and prevention of vitamin D deficiency: an Endocrine Society clinical practice guideline. JCEM. 2010; 96(7):1911-30. Procedures Date Code Description Status 09/17/2024 26090 Collection Of Venous Blood B y Venipuncture Completed Medical Devices Description No Information Available Encounters Type Date Location Provider Dx Diagnosis Office Visit 09/17/2024 8:45a Main Office Nelda Parsons M.D. M81.0 Age-related osteoporosis w/o current pathological fracture Assessments Date Code Description Provider 09/17/2024 M81.0 Age-related oste oporosis without current pathological fracture Nelda Parsons M.D. Plan of Treatment Future Appointment(s):* 01/31/2025 8:30 am - Nelda Parsons M.D. at Main Office 04/25/2024 - Nelda Parsons M.D.* M81.0 Age-related osteoporosis without current pathological fracture Functional Status Description No Information Available Mental Status Description No Information Available Referrals Description No Information Available
--- OUTSIDE RECORDS SUMMARY | 2024-11-06 07:14 | XMS_ITS | Patient Health Record ---
Author Organization [facility] Address [address] [place] [address] Care Team Providers Care Wine Fermenter Name Role Phone Sourav Dela Cruz MD Primary Care Provider Nish Ochoa Jr Unavailable [phone] Allergies Allergen (clinical drug ingredient) Drug/Non Drug Allergy documented on EMR Reaction Allergy Type Onset Date Status Substance with sulfonamide structure and antibacterial mechanism of action (substance) Sulfa Antibiotics Unknown Drug Allergy Active lisinopril Lisinopril Unknown Drug Allergy Activ e atenolol Atenolol Unknown Drug Allergy Active seasonal (uncoded) Unknown Allergy A ctive Reason For Referral No Information Medications Medication SIG (Take, Route, Frequency, Duration) Notes Start Date End Date Status MiraLax (colon prep) 17 GM/SCOOP mixed with Gatorade or Crystal Light Orally begin at 5:00 p.m. the day before the procedure for 1 day 12/15/2021 Active Metoprolol Tartrate 25 MG Oral for 90 Active amLODIPine Besylate 2.5 MG Oral for 90 Active Rosuvastatin Calcium 40 MG Oral for 90 Active traZODone HCl 50 MG TAKE 1 TABLET BY HARMAN TH AT BEDTIME Oral for 90 Active Ezetimibe 10 MG Oral for 90 Ac tive Melatonin 3 MG 1 tablet at bedtime as needed Orally Once a day for 30 day(s) Active Fish Oil 500 MG 1 capsule Orally Twi ce a day for 30 day(s) Active Biotin 3 MG as directed Orally Active Multi Vitamin - 1 tablet Orally Once a day for 30 day(s) Active Vitamin D-3 125 MCG (5000 UT) as directed Orally Active Aspirin 81 81 MG 1 tablet Orally Once a day for 30 day(s) 12/15/2021 Active Immunizations Vaccine Route Administration Date Status Comme nts Influenza Unknown 05/26/2021 Administered Social History Tobacco Use: Social History Observation Description Date Details (start date - stop date) Never Smoker NA - NA Tobacco Use/Smoking Question Answer Notes Patient is a nonsmoker Alcohol Screen Question Answer Notes Did you have a drink contain ing alcohol in the past year? Yes How often did you have a dri nk containing alcohol in the past year? 2 to 3 times a week (3 points) How many drinks did you have on a typical day when you were drinking in the past year? 1 or 2 drinks (0 point) How often did you have 6 or more drinks on one occasion in the past year? Never (0 point) Points 3 Interpretation Positive Problems Problem Type SNOMED Code ICD Code Onset Dates Problem Status W/U Status Risk Notes Problem [id number] Colon cancer screening (Z12.11) Active confirmed Problem [id number] [facility] (current) use of aspirin (Z79.82) Active confirmed Plan Of Treatment Future Test Test Name Order Date COLONOSCOPY 12/15/2021 Insurance Providers Payer Name Payer Address Payer Phone Subscriber Number Group Number Insured Name Patient Relationship to Insured Coverage Start Date Coverage End Date MEDICARE OF [place] [address] [place] [address] [id number] SANYA KIRK Self - patient is the insured [employer] [address] [place] [address] [id number] SANYA KIRK Self - patient is the insured Medical (General) History Medical History History ICD Code Hypertension Elevated cholesterol Osteoporosis Left breast cancer status post lumpectom y, XRT, hormonal therapy 7 years Coronary artery disease Anxiety Gastroesophageal reflux disease Fatty liver Surgical History Surgery Date(Month/Year) Left breast lumpectomy 2007 angioplasty 2015 Colonoscopy, ten-year followup 2010
[2024-11-06 07:23] LABS: MANUAL DIFF FLAG NO
[2024-11-06 07:42] LABS: Basophils Percent Auto 0.6 % (0-2); Eosinophils Percent Auto 0.2 % (0-4); Hematocrit 41.7 % (37.0-47.0); Imm Gran Abs Auto 0.01 X10*3/uL (0.00-0.03); Imm Gran Pct Auto 0.2 % (0.0-0.4); Lymphocytes Absolute Auto 1.5 X10*3/uL (1.2-4.9); Lymphocytes Percent Auto 31.7 % (20-40); Mean Corpuscular HGB Conc 33.6 g/dl (31.0-35.0); Mean Corpuscular Hemoglobin 30.6 pg (27.0-33.0); Mean Corpuscular Volume 91.2 fL (80.0-98.0); Mean Platelet Volume 10.6 fL (9.4-12.3); Monocytes Absolute Auto 0.5 X10*3/uL (0.1-1.2); Monocytes Percent Auto 10.1 % (2-11); Neutrophils Absolute Auto 2.7 x10*3/uL (2.0-8.3); Neutrophils Percent Auto 57.2 % (45-73); Platelet Count 198 X10*3/uL (160-400); Red Blood Count 4.57 X10*6/uL (4.20-5.50); Red Cell Distribution Width 12.5 % (11.0-16.0); White Blood Count 4.7 X10*3/uL (4.8-10.8)
[2024-11-06 07:44] LABS: Estimated Average Glucose 117 mg/dL; Hemoglobin A1C 145.0536 umol/L; Hemoglobin A1c % 5.7 % (<6.0); Total Hemoglobin (HGBA1C) 3783.1303 umol/L
[2024-11-06 08:16] LABS: Alanine Aminotransferase 26 U/L (0-31); Albumin Level 4.2 g/dL (3.5-5.0); Anion Gap 11 (12-20); Aspartate Amino Transferase 33 U/L (5-31); Bilirubin Total 0.7 mg/dL (0.0-1.0); Blood Urea Nitrogen 17 mg/dL (9-16); Calcium 9.7 mg/dL (8.4-10.2); Carbon Dioxide 26 mmol/L (22-29); Chloride 110 mmol/L (96-108); Cholesterol 142 mg/dL (<200); Estimated Glomerular Filt Rate > 60; Glucose Random 103 mg/dL (60-115); HDL Cholesterol 57 mg/dL (>40); LDL Cholesterol Calculated 64 mg/dL (<100); Potassium 4.3 mmol/L (3.3-5.1); Sodium 143 mmol/L (135-145); Total Protein 7.2 g/dL (6.5-8.0); Triglycerides 106 mg/dL (<150)
[2024-11-06 08:26] LABS: Alkaline Phosphatase 45 U/L (39-117)
[2024-11-06 08:59] LABS: Free T4 (Free Thyroxine) 0.87 ng/dL (0.71-1.85); Thyroid Stimulating Hormone 1.54 uIU/mL (0.32-4.0)
== END 2024-11-06 07:11 | disposition home or self-care (01) ==
LOC: HO.LAB 07:10
PROVIDERS: PCP Internal Medicine; Visit Provider Internal Medicine
DX: I25.10 Atherosclerotic heart disease of native coronary artery without angina pectoris (principal); E78.00 Pure hypercholesterolemia, unspecified
CPT/HCPCS: 36415; 80053; 80061; 83036; 84439; 84443; 85025

== ENCOUNTER 2024-11-14 10:38 | Outpatient (AMB) | payer MEDICARE, SELFPAY ==
[2024-11-14 10:45] VITALS: BP 146/72; PULSE 56; TEMP 36.2; O2SAT 97; BMI 27.7
--- NOTE | 2024-11-14 10:45 | MHC.PC.OV ---
Vital Signs 11/14/24 10:45 Height 5 ft 3 in Weight 156 lb 4 oz BMI 27.7 BP 146/72 H Blood Pressure Location Lt brachial Position Sitting Pulse 56 Pulse Source Pulse Oximeter Temp 97.1 F Temp Source Temporal Artery Scan Pulse Oximetry (%) 97 Oxygen Delivery Method Room Air Intake Visit Reasons: 3mth f/u Ticket Writer Required: No Accompanied by: Self / Same As Patient Allergies lisinopril Allergy (Severe, Verified 11/14/24 10:45) anaphylaxis amoxicillin Allergy (Intermediate, Verified 11/14/24 10:45) rash atenolol Allergy (Intermediate, Verified 11/14/24 10:45) rash Sulfa (Sulfonamide Antibiotics) Allergy (Intermediate, Verified 11/14/24 10:45) rash Medication List - Last Reconciled 11/14/24 by Sourav Dela Cruz MD biotin 1 mg PO DAILY calcium citrate-vitamin D3 315 mg-6.25 mcg (250 unit) (Citracal + Vitamin D Maximum) 1 tab PO DAILY cholecalciferol (vitamin D3) (Vitamin D3) 50 mcg PO DAILY clopidogrel 75 mg PO DAILY ezetimibe 10 mg PO DAILY metoprolol tartrate 25 mg PO BID romosozumab-aqqg (Evenity) mg subcut rosuvastatin 40 mg PO BEDTIME sertraline 100 mg PO DAILY 90 days trazodone 50 mg PO BEDTIME Tobacco use date assessed: 08/15/24 Fall risk assessment: No Falls in past year Last assessed Fall Risk: 11/14/24 Dental Screening Dental Screen Date: 08/15/24 [facility] Medical History (Updated 08/15/24 @ 10:45 by Sourav Dela Cruz MD) History of breast cancer Colon cancer screening Stable angina COVID-19 vaccine series completed Shingles Fracture of distal phalanx of finger of right hand Fatty liver GERD (gastroesophageal reflux disease) Hypertension Hypercholesterolemia Coronary artery disease Surgical History S/P CABG x 3 H/O colonoscopy History of angioplasty History of lumpectomy of left breast History of tubal ligation Family History Father CHF (congestive heart failure) CVD (cardiovascular disease) Mother Myocardial infarction CVD (cardiovascular disease) Brother Myocardial infarction Social History Household Members: Spouse Housing: House Do you presently have visiting nurse or other home services: Yes Alcohol intake: current Alcohol intake frequency: a few times a week Alcohol type: wine Comment: 2-4 x a week glass of wine Patient Tobacco Use Status: Never used Tobacco Tobacco use type: Cigarette e-Cigarette/Vaping Use: Never Used Second Hand Smoke Exposure: No service: No Current occupational status: retired Cognitive needs: No Hearing needs: No Vision needs: Yes Questionnaire Thrive Questionnaire Date Thrive assessed: 08/15/24 TRI-7 AMB Questionnaire TRI-7 Date TRI - 7 assessed: 08/15/24 Source: Developed by Drs. Jaime Askew, Melissa Mccauley, Ranjeet Larsen and colleagues, with an educational kym from [employer]. Physical exam (Primary Care) Vital Signs: Last Vital Signs Temp 97.1 F 11/14/24 10:45 Pulse 56 11/14/24 10:45 BP 146/72 H 11/14/24 10:45 Pulse Ox 97 11/14/24 10:45 Oxygen Delivery Method Room Air 11/14/24 10:45 BMI result Body Mass Index 27.7 Tobacco/Smoking Status: Tobacco use Status Tobacco use date assessed 08/15/24 11/14/24 10:46 Patient Tobacco Use Status Never used Tobacco 11/14/24 10:46 Tobacco use type Cigarette 11/14/24 10:46 e-Cigarette/Vaping Use Never Used 11/14/24 10:46 Thrive Assessment: Date of Thrive Assessment Date Thrive assessed 08/15/24 11/14/24 10:46 Const General: alert; No acute distress Eyes Conjunctivae: conjunctivae normal Resp Auscultation: clear to auscultation bilaterally Cardio Rate: regular rate Rhythm: regular rhythm GI Inspection: Yes normal to inspection Extrem General: Yes normal to inspection and No edema Coding Level of Care Code Est Pt Level 4 (30988) Complex EM visit Add On G2211 Diagnoses Essential hypertension I10 Hypertension type: essential hypertension Hypercholesterolemia E78.00 Coronary artery disease involving [place] coronary artery of [place] heart without angina pectoris I25.10 Associated angina: without angina Coronary Disease-Associated Artery/Lesion type: [place] artery [place] vs. transplanted heart: [place] heart Gastroesophageal reflux disease without esophagitis K21.9 Esophagitis presence: without esophagitis History of breast cancer Z85.3 Major depression F32.9 Osteoporosis M81.0 Assessment & Plan Assessment & Plan (1) Hypertension: Code(s): I10 - Essential (primary) hypertension Category: Medical Qualifiers: Hypertension type: essential hypertension Qualified Code(s): I10 - Essential (primary) hypertension Plan: Continue with blood pressure medication. Decrease salt intake and exercise patient is on metoprolol 25 mg twice a day (2) Hypercholesterolemia: Code(s): E78.00 - Pure hypercholesterolemia, unspecified Category: Medical Plan: Avoid fried foods, chicken skin, eggs, butter margarine, pastries and meat. Be it pork or beef they have a lot of cholesterol LDL goal of less than November last blood work on Zetia and rosuvastatin (3) Coronary artery disease: Comment: Angioplasty March 2015 Dr. Zahra Dawn, dr. Tadeo 10/06/2022 showing left main normal, lad mid 75% stenosis, IFR 0.87, 1st diagonal 60% stenosis, left circumflex minimal irregularities, RCA mid 80% stenosis, distal 90% stenosis plan for PCI with arthrectomy verses Coronary artery bypass grafting, RCA is culprit lesion Code(s): I25.10 - Atherosclerotic heart disease of [place] coronary artery without angina pectoris Category: Medical Qualifiers: Associated angina: without angina Coronary Disease-Associated Artery/Lesion type: [place] artery [place] vs. transplanted heart: [place] heart Qualified Code(s): I25.10 - Atherosclerotic heart disease of [place] coronary artery without angina pectoris Plan: Control the cholesterol, weight, blood pressure, patient on Plavix 75 mg once a day (4) GERD (gastroesophageal reflux disease): Code(s): K21.9 - Gastro-esophageal reflux disease without esophagitis Category: Medical Qualifiers: Esophagitis presence: without esophagitis Qualified Code(s): K21.9 - Gastro-esophageal reflux disease without esophagitis Plan: Avoid the foods that causes that usually spicy foods, tomato products, juices, coffee, soda and foods that your sensitive to. After eating do not lie down, allow 3-4 hours before in lie down. And keep the head of bed above 30 degrees to avoid the acid from going up. (5) History of breast cancer: Comment: 2007 Dr. Overmoyer left breast lumpectomy and radiation finished letrozole 2014 Code(s): Z85.3 - Personal history of malignant neoplasm of breast Category: Medical Plan: Up-to-date with mammogram (6) Major depression: Code(s): F32.9 - Major depressive disorder, single episode, unspecified Category: Medical Plan: Patient has been placed on sertraline and trazodone (7) Osteoporosis: Comment: 05/2023 Code(s): M81.0 - Age-related osteoporosis without current pathological fracture Category: Medical Plan: Patient sees endocrinology and has been placed on a Venti and planning to get Reclast in Plan History of Present Illness The patient is a 74-year-old female presenting for a follow-up of chronic conditions and health maintenance. She has a significant past medical history of stable coronary artery disease, diagnosed in 2014 and 2022, alongside hypertension, hypercholesterolemia, gastroesophageal reflux disease, and major depression. The patient also experienced stress cardiomyopathy, specifically Takotsubo cardiomyopathy, and a history of breast cancer in 2007. Relevant screenings include a mammogram done in January 2024, bone density testing in May 2023, and a colonoscopy in January 2022. She is under treatment for osteoporosis, having consulted endocrinology as recently as September 2024, and plans for IV Reclast are in place due to contraindications for pneumolic agents from previous radiation therapy. Laboratory tests in November 2024 indicated a normal blood count with mild leukopenia, normal renal function, but an elevated blood sugar of 103 and a hemoglobin A1c of 5.7. Earlier liver function discrepancies have improved, and her LDL cholesterol is at an optimal 64. She adheres to medication regimens including metoprolol, rosuvastatin, Plavix, and antidepressants, sertraline, and trazodone. Stability was noted in her weight at 150 pounds as recorded in previous consultations. The patient actively manages her health by monitoring blood pressure and dietary intake, including a focus on overcoming social habits affecting her health such as late meals or sweets consumption. Health Maintenance - Mammogram: Last done in January 2024 - Bone density scan: Completed May 2023 - Colonoscopy: Performed January 2022 - Blood work: Done in November 2024, normal blood counts with mild leukopenia, normal renal function - LDL cholesterol: Achieved goal of <70, currently at 64 - Counseling on dietary management: Advised reduction in sugar and carbohydrate intake - Osteoporosis management: Plans for IV Reclast due to contraindications owing to past radiation therapy Social History - Family status: , with discussions indicating involvement with grandchildren - Exercise: Limited recent activity due to weather; intention to become more active - Nutritional intake: Reports significant intake of sweets, including candy and ice cream, partially controlled - Functional status: Stable, with a need to increase physical activity - Weight management: Consistent weight reported, engaged in slight dietary adjustments Review of Systems - Constitutional: Denies significant weight changes, reports stable weight - Cardiovascular: Reports monitoring and concerns with blood pressure; denies chest pain - Gastrointestinal: Reports GERD management with medication - Endocrine: Denies new symptoms indicating diabetes, aware of elevated blood sugar - Neurological: Denies dizziness or syncope - Psychiatric: Reports taking medication for depression - Musculoskeletal: Reports on plans for osteoporosis treatment Physical Exam Results - Labs: Normal blood count, mild leukopenia, normal renal function, elevated blood sugar (103), hemoglobin A1c (5.7), LDL cholesterol (64) - Tests and diagnostics: Normal abdominal ultrasound in August, regular eye checks with no immediate need for cataract surgery Plan The continuation of metoprolol addresses her hypertension, while rosuvastatin effectively manages her cholesterol levels, maintaining her LDL well below the target, decreasing cardiovascular risk. With osteoporosis being managed through the decision to use IV Reclast, noted due to contraindications with pneumolic agents from previous radiation therapy, her plan addresses bone health. Focus was placed on controlling her mild hyperglycemia, discussing dietary management aimed at reducing simple sugars intake, with routine labs monitoring her blood glucose levels. Discussion supports her ongoing anti-depressive medication routine, utilizing sertraline and trazodone, with a reminder for increased activity levels as weather permits. Plans to reconvene in three months will ensure adaptations to her treatment can be made as needed, especially concerning her blood pressure and ongoing medication or lifestyle adjustments. Patient was informed and verbally consented to the use of an ambient scribe for clinic note documentation during this visit. Discussion Notes I discussed the ongoing management of the patient's hypertension and cholesterol and reiterated the importance of maintaining these levels to manage her coronary artery disease risk. We reaffirmed plans to use IV Reclast for osteoporosis management. The mild elevation in blood sugar was addressed through dietary changes, particularly focusing on reducing intake of sweet snacks and encouraging more physical activity as weather conditions improve. I advised maintaining her current antidepressant regimen and considered her overall lifestyle, including her activity levels and nutritional intake. Discussions ensured understanding of all management strategies and anticipated a follow-up in three months to monitor any needed changes in treatment or management. Patient Instructions - Continue current medications: metoprolol, rosuvastatin, sertraline, trazodone, and Plavix as prescribed. - Begin IV Reclast therapy for osteoporosis as advised. - Monitor blood pressure regularly, record results, and report any consistent readings over 140. - Focus on reducing sugar and carbohydrate intake to manage blood sugar levels. - Engage in more physical activities as weather allows to aid weight and cardiovascular health. - Follow scheduled follow-up in three months for review of hypertension management and all ongoing treatments. - Return for care sooner if encountering any sudden health changes or worsening symptoms.
--- OUTSIDE RECORDS SUMMARY | 2024-11-14 12:36 | XMS_ITS | Patient Health Record ---
Author Organization [facility] Address [address] [place] [address] Care Team Providers Care Gold Leaf Laborer Name Role Phone Sourav Dela Cruz MD Primary Care Provider Nish Ochoa Jr Unavailable Allergies Allergen (clinical drug ingredient) Drug/Non Drug [...] Problem Status W/U Status Risk Notes Problem [id number] Colon cancer screening (Z12.11) Active confirmed Problem [id number] skilled nursing (current) use of aspirin (Z79.82) Active confirmed Plan Of Treatment Future Test Test Name Order Date COLONOSCOPY 12/15/2021 Insurance Providers Payer Name Payer Address Payer Phone Subscriber Number Group Number Insured Name Patient Relationship to Insured Coverage Start Date Coverage End Date MEDICARE OF [place] [address] [place] [address] [id number] SANYA KIRK Self - patient is the insured [facility] SUPPLEMENTAL PLAN [address] [place] [address] [id number] SANYA KIRK Self - patient is the insured Medical (General) History Medical History History ICD Code Hypertension Elevated cholesterol Osteoporosis Left breast cancer status post lumpectom y, XRT, hormonal therapy 7 years Coronary artery disease Anxiety Gastroesophageal reflux disease Fatty liver Surgical History Surgery Date(Month/Year) Left breast lumpectomy 2007 angioplasty 2015 Colonoscopy, ten-year followup 2010
--- OUTSIDE RECORDS SUMMARY | 2024-11-14 12:36 | XMS_ITS | Continuity of Care Document ---
Author Organization [facility] Address [address] [place] [address] Phone [phone] Care Team Providers Care Infant Babysitter Name Role Phone Jose De JesusSourav Care Team Information Mat Sewer + [phone] Problems Active Problems Provider Date Essential hypertension [...] Medications SIG Qnty Indications Ordering Provider Date Jfqmde40hf Tablets 1 daily Po, Lorenve r Metoprolol Geoqdryh66ix Tablets 2 daily Po, Lorenver Bjlkqwibx98ri Tablets 1 daily Po, Usha nver Rosuvastatin Mlrwend58ag Tablets 1 daily Po, Lorenver 00 Trazodone UKA62hn Tablets 1 daily Po, Lorenver Sertraline QUV177gm Tablets 1 daily Po, Lorenver Vitamin V368wxt Capsules 1 by mouth every day Unknown Aspir-Oog35sk Tablets DR Rachel Multivitamin Adults 50+Adlt 50+ Tablets 1 by mouth every day Nelda Parsons M.D. Citracal Rgatdks421-0.25mg-mcg Tablets 1 by mouth every day Nelda [...] measured NTx value is <or=38 nM BCE/mM ECHO TECHNOLOGIST, or NTx has decreased >or=30% from baseline.[1] [...] D deficiency has been defined by the [place] of Medicine and an Endocrine Society practice guideline as a level of serum 25-OH vitamin D less than 20 ng/mL (1,2). The Endocrine Society went on to further define vitamin D insufficiency as a level between 21 and 29 ng/mL (2). 1. IOM ([place] of Medicine). 2010. Dietary reference intakes for calcium and D. [place]: The National Academies Press. 2. Marisa MF, Nazia NC, Kaylin BOYLE, et al. Evaluation, treatment, and prevention of vitamin D deficiency: an Endocrine Society clinical practice guideline. JCEM. 2010; 96(7):1911-30. Procedures Date Code Description Status 09/17/2024 98182 Collection Of Venous Blood B y Venipuncture [...]
== END 2024-11-14 11:43 | disposition home or self-care (01) ==
LOC: HO.HMCH 10:38
PROVIDERS: PCP Internal Medicine; Visit Provider Internal Medicine
DX: I10 Essential (primary) hypertension (principal); E78.00 Pure hypercholesterolemia, unspecified; I25.10 Atherosclerotic heart disease of native coronary artery without angina pectoris; K21.9 Gastro-esophageal reflux disease without esophagitis; Z85.3 Personal history of malignant neoplasm of breast; F32.9 Major depressive disorder, single episode, unspecified; M81.0 Age-related osteoporosis without current pathological fracture

== ENCOUNTER → 2024-11-14 10:38 | Outpatient (BNVA) | payer MEDICARE, SELFPAY | PROVIDERS: PCP Internal Medicine; Visit Provider Internal Medicine | DX: I10 Essential (primary) hypertension (principal); E78.00 Pure hypercholesterolemia, unspecified; I25.10 Atherosclerotic heart disease of native coronary artery without angina pectoris; K21.9 Gastro-esophageal reflux disease without esophagitis; F32.9 Major depressive disorder, single episode, unspecified; M81.0 Age-related osteoporosis without current pathological fracture; Z85.3 Personal history of malignant neoplasm of breast | CPT/HCPCS: 99212 ==

== ENCOUNTER 2025-01-27 09:21 | Outpatient (AMB) | payer MEDICARE, SELFPAY ==
--- NOTE | 2025-01-27 09:46 | MHC.OFFVIS ---
Vital Signs 01/27/25 09:49 Height 5 ft 3 in Weight 153 lb 0.013 oz BMI 27.1 BP 130/76 Blood Pressure Location Lt brachial Position Sitting Pulse 50 Pulse Source Monitor Intake Visit Reasons: r/s 01/20/25 1 yr followup w/ekg Intake Note: 1 yr f/up-ekg Rn Perinatal Required: No Accompanied by: Self / Same As Patient Allergies lisinopril Allergy (Severe, Verified 11/14/24 10:45) anaphylaxis amoxicillin Allergy (Intermediate, Verified 11/14/24 10:45) rash atenolol Allergy (Intermediate, Verified 11/14/24 10:45) rash Sulfa (Sulfonamide Antibiotics) Allergy (Intermediate, Verified 11/14/24 10:45) rash Medication List - Last Reconciled 01/27/25 by Jordan Tadeo MD biotin 1 mg PO DAILY calcium citrate-vitamin D3 315 mg-6.25 mcg (250 unit) (Citracal + Vitamin D Maximum) 1 tab PO DAILY cholecalciferol (vitamin D3) (Vitamin D3) 50 mcg PO DAILY clopidogrel 75 mg PO DAILY ezetimibe 10 mg PO DAILY metoprolol tartrate 25 mg PO BID romosozumab-aqqg (Evenity) mg subcut rosuvastatin 40 mg PO BEDTIME sertraline 100 mg PO DAILY 90 days trazodone 50 mg PO BEDTIME HPI Comments Details: 74 year old female here for follow-up. She has background of CAD s/p CABG. She also had an episode of takotsubo cardiomyopathy when her was diagnosed with medical issues when she was under lot of stress. She has been walking and riding her bike in the basement. No chest discomfort shortness of breath. Blood pressure well controlled. [facility] Medical History History of breast cancer Colon cancer screening Stable angina COVID-19 vaccine series completed Shingles Fracture of distal phalanx of finger of right hand Fatty liver GERD (gastroesophageal reflux disease) Hypertension Hypercholesterolemia Coronary artery disease Surgical History S/P CABG x 3 H/O colonoscopy History of angioplasty History of lumpectomy of left breast History of tubal ligation Family History Father CHF (congestive heart failure) CVD (cardiovascular disease) Mother Myocardial infarction CVD (cardiovascular disease) Brother Myocardial infarction Social History Household Members: Spouse Housing: House Do you presently have visiting nurse or other home services: Yes Alcohol intake: current Alcohol intake frequency: a few times a week Alcohol type: wine Comment: 2-4 x a week glass of wine Patient Tobacco Use Status: Never used Tobacco Tobacco use type: Cigarette e-Cigarette/Vaping Use: Never Used Second Hand Smoke Exposure: No service: No Current occupational status: retired Cognitive needs: No Hearing needs: No Vision needs: Yes Review of Systems Const Denies chills, Denies fatigue, Denies fever(s), Denies frequent falls, Denies weakness, Denies weight gain and Denies weight loss ENT Denies dizziness Card Denies chest pain, Denies leg edema, Denies lightheadedness, Denies palpitations, Denies dyspnea and Denies dyspnea on exertion Resp Denies cough, Denies dyspnea and Denies dyspnea on exertion GI Denies hematochezia Musc Denies abnormal gait, Denies muscle weakness, Denies numbness, Denies radiating pain into limb and Denies tingling Neuro Denies abnormal gait, Denies dizziness, Denies frequent falls, Denies numbness, Denies tingling and Denies weakness Endo Denies fatigue and Denies palpitations Physical Exam Vital Signs: Last Vital Signs Pulse 50 01/27/25 09:49 BP 130/76 01/27/25 09:49 BMI result Body Mass Index 27.1 GENERAL APPEARANCE: in no acute distress. NECK: no carotid bruit, no jugular venous distention. SKIN: no suspicious lesions, warm and dry. HEART: no murmurs, regular rate and rhythm. LUNGS: clear to auscultation bilaterally. ABDOMEN: soft, nontender. EXTREMITIES: no edema. PERIPHERAL PULSES: equal. NEUROLOGIC: No gross deficits, AAO X 3 Office Procedures EKG Details: Sinus bradycardia 50 beats per minute, LBBB, QTC 450 milliseconds. [id number], Complete Assessment & Plan Assessment & Plan (1) Hypertension: Code(s): I10 - Essential (primary) hypertension Category: Medical Qualifiers: Hypertension type: essential hypertension Qualified Code(s): I10 - Essential (primary) hypertension (2) Coronary artery disease: Comment: Status post CABG Code(s): I25.10 - Atherosclerotic heart disease of [place] coronary artery without angina pectoris Category: Medical Qualifiers: Coronary Disease-Associated Artery/Lesion type: [place] artery [place] vs. transplanted heart: [place] heart Associated angina: without angina Qualified Code(s): I25.10 - Atherosclerotic heart disease of [place] coronary artery without angina pectoris Plan 74 year female who is here for follow-up. She is status post CABG. She also had an episode of takotsubo cardiomyopathy. Clinically she has been stable. Denying chest pain or shortness of breath. Blood pressure is well controlled. Taking Plavix monotherapy. No bleeding. Follow up with us in 6 months. Thank you for allowing me to participate in the care of your patient. Please feel free to contact me if you have any questions. Coding Level of Care Code Est Pt Level 3 (75356) Diagnoses Essential hypertension I10 Hypertension type: essential hypertension Coronary artery disease involving [place] coronary artery of [place] heart without angina pectoris I25.10 Coronary Disease-Associated Artery/Lesion type: [place] artery [place] vs. transplanted heart: [place] heart Associated angina: without angina CPT Codes EKG - CPT: 98091-Uyayhzspumjovxdaw, Complete ([id number])
[2025-01-27 09:49] VITALS: BP 130/76; PULSE 50; BMI 27.1
--- OUTSIDE RECORDS SUMMARY | 2025-01-27 10:10 | XMS_ITS | Patient Health Record ---
Author Organization [facility] Address [address] [place] [address] Care Team Providers Care Motorman/Woman Name Role Phone Sourav Dela Cruz MD [...] Problem Status W/U Status Risk Notes Problem [id number] Colon cancer screening (Z12.11) Active confirmed Problem [id number] custodial (current) use of aspirin (Z79.82) Active confirmed Plan Of Treatment Future Test Test Name Order Date COLONOSCOPY 12/15/2021 Insurance Providers Payer Name Payer Address Payer Phone Subscriber Number Group Number Insured Name Patient Relationship to Insured Coverage Start Date Coverage End Date MEDICARE OF [place] [address] [place] [address] [id number] SANYA KIRK Self - patient is the insured [facility] SUPPLEMENTAL PLAN [address] [place] [address] [id number] SANYA KIRK Self - patient is the insured Medical (General) History Medical History History ICD Code Hypertension Elevated cholesterol Osteoporosis Left breast cancer status post lumpectom y, XRT, hormonal therapy 7 years Coronary artery disease Anxiety Gastroesophageal reflux disease Fatty liver Surgical History Surgery Date(Month/Year) Left breast lumpectomy 2007 angioplasty 2015 Colonoscopy, ten-year followup 2010
== END 2025-01-27 10:25 | disposition home or self-care (01) ==
LOC: HO.HCS 09:22
PROVIDERS: PCP Internal Medicine; Visit Provider Internal Medicine Cardiovascular Disease
DX: I10 Essential (primary) hypertension (principal); I25.10 Atherosclerotic heart disease of native coronary artery without angina pectoris
CPT/HCPCS: 93010; 99213

== ENCOUNTER → 2025-01-27 09:21 | Outpatient (BNVA) | payer MEDICARE, SELFPAY | PROVIDERS: PCP Internal Medicine; Visit Provider Internal Medicine Cardiovascular Disease | DX: I25.10 Atherosclerotic heart disease of native coronary artery without angina pectoris (principal); I10 Essential (primary) hypertension; I44.7 Left bundle-branch block, unspecified; R94.31 Abnormal electrocardiogram [ECG] [EKG]; R00.1 Bradycardia, unspecified | CPT/HCPCS: 93005; 99212 ==

== ENCOUNTER 2025-02-18 10:42 | Outpatient (AMB) | payer MEDICARE, SELFPAY ==
--- NOTE | 2025-02-18 10:48 | AM.OFFVISMDC ---
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: No Accompanied by: Self / Same As Patient Allergies lisinopril Allergy (Severe, Verified 02/18/25 10:50) anaphylaxis amoxicillin Allergy (Intermediate, Verified 02/18/25 10:50) rash atenolol Allergy (Intermediate, Verified 02/18/25 10:50) rash Sulfa (Sulfonamide Antibiotics) Allergy (Intermediate, Verified 02/18/25 10:50) rash Medication List - Last Reconciled 02/18/25 by Sourav Dela Cruz MD biotin 1 mg PO DAILY calcium citrate-vitamin D3 315 mg-6.25 mcg (250 unit) (Citracal + Vitamin D Maximum) 1 tab PO DAILY cholecalciferol (vitamin D3) (Vitamin D3) 50 mcg PO DAILY clopidogrel 75 mg PO DAILY ezetimibe 10 mg PO DAILY metoprolol tartrate 25 mg PO BID romosozumab-aqqg (Evenity) mg subcut rosuvastatin 40 mg PO BEDTIME sertraline 100 mg PO DAILY 90 days trazodone 50 mg PO BEDTIME HPI SWV G0439 HPI Details [facility] cardiology Dr. Norberto sneed dermatology [facility], endocrine [facility] Medical History History of breast cancer Colon cancer screening Stable angina COVID-19 vaccine series completed Shingles Fracture of distal phalanx of finger of right hand Fatty liver GERD (gastroesophageal reflux disease) Hypertension Hypercholesterolemia Coronary artery disease Surgical History S/P CABG x 3 H/O colonoscopy History of angioplasty History of lumpectomy of left breast History of tubal ligation Family History Father CHF (congestive heart failure) CVD (cardiovascular disease) Mother Myocardial infarction CVD (cardiovascular disease) Brother Myocardial infarction Social History (Updated 02/18/25 @ 11:51 by Sourav Dela Cruz MD) Household Members: Spouse Housing: House Do you presently have visiting nurse or other home services: Yes Alcohol intake: current Alcohol intake frequency: a few times a week Alcohol type: wine Comment: 3-5 x a week glass of wine Patient Tobacco Use Status: Never used Tobacco Tobacco use type: Cigarette e-Cigarette/Vaping Use: Never Used Second Hand Smoke Exposure: No service: No Current occupational status: retired Cognitive needs: No Hearing needs: No Vision needs: Yes Questionnaire Medicare Wellness Checkup [age] What gender do you identify with?: female During the past 4 weeks, how much have you been bothered by emotional problems such as feeling anxious, depressed, irritable, sad or downhearted, and blue?: moderately During the past 4 weeks, has your physical & emotional health limited your social activities with family, friends, neighbors, or groups?: slightly During the past 4 weeks, how much bodily pain have you generally had?: no pain During the past 4 weeks, was someone available to help you if you needed & wanted help?: yes, a little During the past 4 weeks, what was the hardest physical activity you could do for at least 2 minutes?: heavy Can you get to places out of walking distance without help? (For eg., can you travel alone on buses, taxis or drive your car?): Yes Can you go shopping for groceries or clothes without someone's help?: Yes Can you prepare your own meals?: Yes Can you do your housework without help?: Yes Because of any health problems, do you need the help of another person with your personal care needs such as eating, bathing, dressing or getting around the house?: No Can you handle your own money without help?: Yes During the past 4 weeks, how would you rate your health in general?: very good During the past 4 weeks how have things been going for you?: pretty well Are you having difficulties driving your car?: no During past 4 weeks, have you been bothered by the following: never: Falling or dizzy when standing up, Sexual problems?, Trouble eating well?, Teeth or denture problems? and Problems using the telephone? and seldom: Tiredness or fatigue? Have you fallen 2 or more times in the past year?: No Are you afraid of falling?: No Are you a smoker?: no During the past 4 weeks, how many drinks of wine, beer, or other alcoholic beverages did you have?: 2-5 drinks per week Do you exercise for about 20 minutes 3 or more times a week?: yes, most of the time Have you been given information to help with the following?: no: Hazards in your house that might hurt you? and no: Keeping track of your medications? How often do you have trouble taking medicines the way you have been told to take them?: I always take medicine as prescribed How confident are you that you can control & manage most of your health problems?: very confident What is your race?: White PHQ-9 Over the last 2 weeks, how often have you been bothered by any of the following problems? 1. Little interest or pleasure in doing things: several days 2. Feeling down, depressed, or hopeless: not at all 3. Trouble falling or staying asleep, or sleeping too much: not at all 4. Feeling tired or having little energy: several days 5. Poor appetite or overeating: not at all 6. Feeling bad about yourself - or that you are a failure or have let yourself or your family down: not at all 7. Trouble concentrating on things, such as reading the newspaper or watching television: not at all 8. Moving or speaking so slowly that other people could have noticed. Or the opposite - being so fidgety or restless that you have been moving around a lot more than usual: not at all 9. Thoughts that you would be better off or of hurting yourself in some way: not at all Total score: 2 Source: Developed by Drs. Jaime Askew, Melissa Mccauley, Ranjeet Larsen and colleagues, with an educational kym from [employer]. Fall Risk Assessment Fall Risk Assessment Fall risk assessment: No Falls in past year AUDIT C Alcohol Use Questionnaire (AUDIT-C) 1. How often do you have a drink containing alcohol?: Monthly or less 2. How many drinks containing alcohol do you have on a typical day when you are drinking?: 1 or 2 3. How often do you have six or more drinks on one occasion?: Never Total Score: 1 TRI-7 AMB Questionnaire TRI-7 Date TRI - 7 assessed: 02/18/25 Feeling nervous, anxious, or on edge: 1 = Several days Not being able to stop or control worryin = Not at all Worrying too much about different things: 1 = Several days Trouble relaxin = Not at all Being so restless that it is hard to sit still: 0 = Not at all Becoming easily annoyed or irritable: 0 = Not at all Feeling afraid as if something awful might happen: 0 = Not at all Total TRI-7 score (0-4 normal; 5-9 mild; 10-14 moderate; 15-21 severe): 2 Source: Developed by Drs. Jaime Askew, Melissa Mccauley, Ranjeet Larsen and colleagues, with an educational kym from [employer]. Thrive Questionnaire Date Thrive assessed: 08/15/24 Review of Systems Const Denies poor appetite and Denies weakness Eyes Denies no additional complaints ENT Reports Normal hearing present, Denies dizziness, Denies nasal congestion, Denies tinnitus and Denies sore throat Card Denies chest pain, Denies syncope, Denies rapid heart rate and Denies dyspnea Resp Denies cough and Denies dyspnea GI Denies change in stool character, Reports constipation, Denies diarrhea, Denies nausea and Denies vomiting Denies urinary frequency, Denies difficulty voiding and Denies dysuria Neuro Reports Normal hearing present, Denies confusion, Denies dizziness, Denies syncope and Denies weakness Psych Denies confusion Physical Exam Vital Signs: Last Vital Signs Pulse 54 02/18/25 10:49 BP 124/82 02/18/25 10:49 Pulse Ox 96 02/18/25 10:49 Oxygen Delivery Method Room Air 02/18/25 10:49 BMI result Body Mass Index 26.7 Const General: No confusion Orientation/consciousness: No confusion HEENT Head: Yes normocephalic Ears: external ears normal and TM's normal bilaterally Face and sinus: Yes normal facial exam Mouth: moist mucous membranes Throat: Yes tonsils normal Eyes Conjunctivae: conjunctivae normal Pupils: Equal, round and reactive pupils present and Pupil accommodation reflex normal Direct Ophthalmoscopy: normal light reflex Neck Neck: No lymphadenopathy Thyroid: Thyroid normal Chest Chest palpation & inspection: normal inspection of the chest Resp Effort & Inspection: normal respiratory effort and no audible wheezes Auscultation: clear to auscultation bilaterally, no crackles, no wheezes and lung sounds not diminished Cardio Rate: regular rate Rhythm: regular rhythm Peripheral pulses: radial pulses present and dorsalis pedis present GI Palpation (GI): no masses Auscultation: normal bowel sounds and normoactive bowel sounds Rectal Exam - Female: deferred Skin General skin exam: no rashes or lesions noted Rashes: no rashes Neuro General: No confusion Cranial nerves: Yes Equal, round and reactive pupils present and Yes Normal hearing present Cognition (Neuro): normal cognition Gait exam (Neuro): Normal gait present Motor exam (neuro): 5/5 motor strength present throughout Deep tendon reflexes (DTR's): Right brachioradialis reflex intensity grade: 2+, Left brachioradialis reflex intensity grade: 2+, Right patellar reflex intensity grade: 2+ and Left patellar reflex intensity grade: 2+ Extrem General: No edema Assessment & Plan Assessment & Plan (1) Medicare annual wellness visit, subsequent: Code(s): Z00.00 - Encounter for general adult medical examination without abnormal findings Plan: Patient is advised to eat healthy, keep well hydrated, keep active and have adequate sleep. (2) Coronary artery disease: Comment: Status post CABG Code(s): I25.10 - Atherosclerotic heart disease of [place] coronary artery without angina pectoris Qualifiers: Associated angina: without angina Coronary Disease-Associated Artery/Lesion type: [place] artery [place] vs. transplanted heart: [place] heart Qualified Code(s): I25.10 - Atherosclerotic heart disease of [place] coronary artery without angina pectoris Plan: Control the cholesterol, weight, blood pressure, diabetes on clopidogrel (3) Hypertension: Code(s): I10 - Essential (primary) hypertension Qualifiers: Hypertension type: essential hypertension Qualified Code(s): I10 - Essential (primary) hypertension Plan: Continue with blood pressure medication. Decrease salt intake and exercise patient takes metoprolol 25 mg twice a day (4) Hypercholesterolemia: Code(s): E78.00 - Pure hypercholesterolemia, unspecified Plan: Avoid fried foods, chicken skin, eggs, butter margarine, pastries and meat. Be it pork or beef they have a lot of cholesterol LDL goal of less than 70 and triglyceride of less than 150 on rosuvastatin 40 mg once a day (5) Age-related osteoporosis without current pathological fracture: Code(s): M81.0 - Age-related osteoporosis without current pathological fracture Plan: Patient has been started on Evenity under endocrinology (6) GERD (gastroesophageal reflux disease): Code(s): K21.9 - Gastro-esophageal reflux disease without esophagitis Qualifiers: Esophagitis presence: without esophagitis Qualified Code(s): K21.9 - Gastro-esophageal reflux disease without esophagitis Plan: Avoid the foods that causes that usually spicy foods, tomato products, juices, coffee, soda and foods that your sensitive to. After eating do not lie down, allow 3-4 hours before in lie down. And keep the head of bed above 30 degrees to avoid the acid from going up. (7) History of breast cancer: Comment: 2007 Dr. Conde left breast lumpectomy and radiation finished letrozole 2014 Code(s): Z85.3 - Personal history of malignant neoplasm of breast Plan: February 2025 scheduled for mammogram Plan History of Present Illness The patient is a 74-year-old female presenting for an annual wellness visit. The patient has a history of coronary artery disease, hypertension, and hypercholesterolemia, managed with medications including metoprolol and rosuvastatin. Her blood pressure is well-controlled with recent readings of 110/60 mmHg, and her LDL cholesterol is at 64 mg/dL. She has osteoporosis and receives monthly Evenity injections under endocrinology care. Her last bone density test was in May 2023, with a follow-up scheduled. The patient has a history of breast cancer diagnosed in 2007, with regular follow-ups and a mammogram scheduled for February 2025. She reports onychomycosis, treated with topical clotrimazole solution, with some improvement noted over several months. Her November blood work showed normal counts, electrolytes, and renal function, but a mildly elevated blood glucose with a hemoglobin A1c of 5.7%. Liver and thyroid functions were normal. The patient has a deviated septum causing chronic nasal congestion and postnasal drip, managed with intermittent Flonase use, though she experiences occasional nosebleeds. Health Maintenance - Mammogram scheduled for February 2025 - Bone density test up to date as of May 2023 - Colonoscopy last performed in January 2022 - Blood pressure well-controlled with recent reading of 110/60 mmHg - LDL cholesterol at 64 mg/dL - Hemoglobin A1c at 5.7% Social History - Alcohol consumption: Approximately 3-5 glasses of wine per week - Exercise: Irregular biking and regular walking - Nutrition: Eats less due to decreased appetite, larger meals at lunch - Living situation: Lives alone, manages own meals and social activities Review of Systems - Cardiovascular: Denies chest pain, orthopnea, or syncope. - Respiratory: Denies dyspnea, cough, or wheezing. - Gastrointestinal: Denies nausea, vomiting, or heartburn. - Neurological: Denies dizziness, headaches, or balance issues. - Musculoskeletal: Reports no joint pain or swelling. - Dermatological: Reports onychomycosis. - HEENT: Reports postnasal drip and nasal congestion, denies hearing loss. Physical Exam General: Cooperative, healthy appearing, comfortable, no acute distress and well developed Orientation: Patient oriented x3 Limitations: No limitations Head: Normal to inspection Ears: Hearing grossly normal bilaterally, but ear wax noted in the middle of the ear Nose: Normal external nose present, but patient reports a drippy sinus and deviated septum Face and sinus: Normal facial exam Eyes: Appearance normal, both eyes and all related structures, patient reports floaters and slight vision changes Neck: Normal visual inspection and Yes full ROM Respiratory: Normal respiratory effort and able to speak in complete sentences. Clear to auscultation bilaterally Cardiovascular: Regular rate and rhythm. Normal S1 and S2 GI: Normal to inspection. Soft to palpation and nontender Skin: No rashes or lesions noted Neuro: Patient oriented x3 Extremities: Normal to inspection, patient reports riding a bike and walking regularly, no chest pain during activities Results - Labs: Normal blood counts, electrolytes, renal function; mildly elevated blood glucose with hemoglobin A1c of 5.7%. - Labs: Normal liver and thyroid function tests. Plan The patient will maintain her current medication regimen for coronary artery disease, hypertension, and hypercholesterolemia, including metoprolol and rosuvastatin, aiming to keep LDL cholesterol below 70 mg/dL. She will continue with endocrinology for osteoporosis management, receiving Evenity injections monthly, and will have a bone density test in May 2023. For her history of breast cancer, a mammogram is scheduled for February 2025 to monitor for recurrence. The patient will continue using topical clotrimazole for onychomycosis and follow up with dermatology as needed. Her mildly elevated blood glucose will be monitored, and she is advised to maintain a healthy diet and exercise routine to manage her hemoglobin A1c levels. She will continue using Flonase for nasal congestion and postnasal drip, with consideration for alternative allergy medications if symptoms persist. Patient was informed and verbally consented to the use of an ambient scribe for clinic note documentation during this visit. Discussion Notes During the visit, I discussed with the patient the importance of continuing her current medication regimen for managing coronary artery disease, hypertension, and hypercholesterolemia, emphasizing the goal of maintaining her LDL cholesterol below 70 mg/dL. We reviewed her osteoporosis management plan, including monthly Evenity injections and the upcoming bone density test in May 2023. I advised her on the need for a mammogram in February 2025 to monitor her history of breast cancer and discussed the ongoing treatment for onychomycosis with topical clotrimazole. We also addressed her mildly elevated blood glucose, recommending dietary and exercise modifications to manage her hemoglobin A1c levels. For her nasal congestion and postnasal drip, I suggested continuing Flonase and considering alternative allergy medications if needed. Patient Instructions - Continue taking metoprolol and rosuvastatin as prescribed. - Follow up with endocrinology for osteoporosis management and continue Evenity injections. - Attend scheduled mammogram in February 2025. - Use clotrimazole solution for nail fungus as directed. - Monitor blood glucose levels and maintain a healthy diet and exercise routine. - Use Flonase for nasal congestion and consider alternative allergy medications if symptoms persist. Orders: Orders Complete Blood Count Auto Diff 6 Months E78.00 - Pure hypercholesterolemia, unspecified Free T4 (Free Thyroxine) 6 Months E78.00 - Pure hypercholesterolemia, unspecified Lipid Panel 6 Months E78.00 - Pure hypercholesterolemia, unspecified Vitamin D 25-OH Total 6 Months E78.00 - Pure hypercholesterolemia, unspecified Comprehensive Met. Panel 6 Months E78.00 - Pure hypercholesterolemia, unspecified Thyroid Stimulating Hormone 6 Months E78.00 - Pure hypercholesterolemia, unspecified Vitamin B12 and Folate 6 Months E78.00 - Pure hypercholesterolemia, unspecified Hemoglobin A1c 6 Months E78.00 - Pure hypercholesterolemia, unspecified UA CC w/rflx Micro + Cult 6 Months E78.00 - Pure hypercholesterolemia, unspecified, R30.0 - Dysuria Medications: Refilled metoprolol tartrate 25 mg PO BID 180 tabs 3RF E78.00 - Pure hypercholesterolemia, unspecified metoprolol tartrate 25 mg PO BID 180 tabs 3RF E78.00 - Pure hypercholesterolemia, unspecified rosuvastatin 40 mg PO BEDTIME 90 tabs 3RF Quality Reporting (2019) Fall Risk Screening ([facility] 139) Fall risk assessment: No Falls in past year Depression/Bipolar (159/160/161/177) PHQ-9: Total score: 2 Coding Level of Care Code Medicare Subsequent (G0439) Diagnoses Medicare annual wellness visit, subsequent Z00.00 Coronary artery disease involving [place] coronary artery of [place] heart without angina pectoris I25.10 Associated angina: without angina Coronary Disease-Associated Artery/Lesion type: [place] artery [place] vs. transplanted heart: [place] heart Essential hypertension I10 Hypertension type: essential hypertension Hypercholesterolemia E78.00 Age-related osteoporosis without current pathological fracture M81.0 Gastroesophageal reflux disease without esophagitis K21.9 Esophagitis presence: without esophagitis History of breast cancer Z85.3
[2025-02-18 10:49] VITALS: BP 124/82; PULSE 54; O2SAT 96; BMI 26.7
--- OUTSIDE RECORDS SUMMARY | 2025-02-18 12:03 | XMS_ITS | Patient Health Record ---
Author Organization [facility] Address [address] [place] [address] Care Team Providers Care Financial Services Rep Name Role Phone Sourav Dela Cruz MD [...] Problem Status W/U Status Risk Notes Problem [id number] Colon cancer screening (Z12.11) Active confirmed Problem [id number] half-way (current) use of aspirin (Z79.82) Active confirmed Plan Of Treatment Future Test Test Name Order Date COLONOSCOPY 12/15/2021 Insurance Providers Payer Name Payer Address Payer Phone Subscriber Number Group Number Insured Name Patient Relationship to Insured Coverage Start Date Coverage End Date MEDICARE OF [place] [address] [facility] [place] [address] [id number] SANYA KIRK Self - patient is the insured [facility] SU[employer] [address] [place] [address] [id number] SANYA KIRK Self - patient is the insured Medical (General) History Medical History History ICD Code Hypertension Elevated cholesterol Osteoporosis Left breast cancer status post lumpectom y, XRT, hormonal therapy 7 years Coronary artery disease Anxiety Gastroesophageal reflux disease Fatty liver Surgical History Surgery Date(Month/Year) Left breast lumpectomy 2007 angioplasty 2015 Colonoscopy, ten-year followup 2010
== END 2025-02-18 12:19 | disposition home or self-care (01) ==
LOC: HO.HMCH 10:43
PROVIDERS: PCP Internal Medicine; Visit Provider Internal Medicine
DX: Z00.00 Encounter for general adult medical examination without abnormal findings (principal); I25.10 Atherosclerotic heart disease of native coronary artery without angina pectoris; I10 Essential (primary) hypertension; E78.00 Pure hypercholesterolemia, unspecified; M81.0 Age-related osteoporosis without current pathological fracture; K21.9 Gastro-esophageal reflux disease without esophagitis; Z85.3 Personal history of malignant neoplasm of breast

== ENCOUNTER 2025-02-24 15:37 | Outpatient (REF) | payer MEDICARE, SELFPAY ==
--- OUTSIDE RECORDS SUMMARY | 2025-02-24 16:06 | XMS_ITS | Clinical Summary ---
Author Organization [facility] Address [address] [place] [address] Phone Care Team Providers Care Ergonomic Specialist Name Role Phone PoSourav MD Unavailable [phone] PoSourav MD Primary Care Provider [phone] Ciampa, Zuly H PROPERTY MAN Unavailable [phone] Allergies Active Allergy Reactions Criticality Noted Date Comments Atenolol Dystonia 11/01/2007 Latex 07/12/2021 Lisinopril Anaphylaxis 11/01/2007 Penicillins Rash Low 03/11/2010 Sulfa (Sulfonamide Antibiotics) Rash 10/06 Medications rosuvastatin (CRESTOR) 20 MG tablet Take 1 tablet (20 mg total) by mouth daily. 6 Active Additional Information Patient taking differently: 40 mgOral Daily, Reported on 07/09/2021 cholecalciferol (VITAMIN D3) 1,000 unit tablet Dose: 1000 UNITS; Form: Take 1 TABLET; Route: PO; Frequency: Q24H; Directions: Not available; Details: Dispense: Tablet(s); Date: 10/28/2011 2 Active omega-3 fatty acids 300 mg Cap Dose: 1200 MG; Form: Take 4 CAPSULE; Route: PO; Frequency: Not available; Directions: Not available; Details: Dispense: Capsule(s); Date: 10/28/2011 2 Active aspirin 81 MG EC tablet Take 81 mg by mouth daily. Active metoprolol succinate (TOPROL-XL) 25 MG 24 hr tablet Take 25 mg by mouth 2 (two) times a day. Active ezetimibe (ZETIA) 10 mg tablet Take 10 mg by mouth daily. Active traZODone (DESYREL) 50 MG tablet Take 50 mg by mouth nightly at bedtime as needed. Active amLODIPine (NORVASC) 10 MG tablet Take 2.5 mg by mouth daily. Active therapeutic multivitamin tablet Take 1 tablet by mouth daily. Active Active Problems Problem Noted Date Diagnosed Date Dyspareunia in female 05/06/2020 Assessment & Plan (05/06/2020 11:55 AM EDT): Discussed use of Intrarosa nightly suppositories. Advised patient this is a newer product on the market. I do not have any clinical experience with it at this time. I am also unsure of the data to support its use in breast cancer. Likely there is little or no data. It is DHEA which in theory at least may slightly increase serum estrogen levels. Advised patient nonhormonal options (eg, lubricants, moisturizers) are first- line therapy. Vaginal moisturizers, vaginal lubricants, use of graduated vaginal dilators reviewed with patient. Use of low-dose vaginal estrogen reviewed. Risks, benefits reviewed. If patient does not find adequate relief with nonhormonal options, and feels she would like to accept possible risks, I would suggest use of vaginal estrogen tablets 10 MCG or Estring device. Use of low-dose vaginal estrogen therapy has not been found to be associated with an increased risk of breast cancer recurrence. However, studies have shown that there can be low levels of systemic absorption. The rationale for caution with vaginal hormones is that the aim of aromatase inhibitor therapy is to maximally reduce serum estrogen levels, which may be slightly increased with topical hormones. However, data are limited and survival outcomes and recurrence rates among patients on AIs and topical hormone preparations are not available. Patient plans to try nonhormonal options at this time. Will discuss symptoms further at upcoming oncology appointment July 07. Vaginal atrophy 05/06/2020 History of breast cancer 05/21/2012 Overview (05/01/2020): Malignant tumor of breast left. 2008 and [facility] PROPERTY MAN in [place]. Last exam 2018 with mammo. Hypertensive disorder 05/21/2012 Overview (09/26/2014): Hypertensive disorder Osteoporosis 05/21/2012 Overview (09/26/2014): Osteoporosis History of breast cancer 10/22/2007 History of radiation therapy Family History Medical History Relation Comments Bipolar disorder Brother 1 Heart disease Mother Bipolar disorder Sister Relation Status Comments Brother 1 Brother 2 Mother Sister Social History Tobacco Use Types Packs/Day Years Used Date Smoking Tobacco: Never Smokeless Tobacco: Never Alcohol Use Standard Drinks/Week Comments Yes 0 (1 standard drink = 0.6 oz pur e alcohol) occ Education Answer Date Recorded Are you interested in more education? Not on wade e 12/01/2022 Are you concerned about learning? Not on file 12/01/2022 No 12/01/2022 No 12/01/2022 Digital Access Answer Date Recorded No 01/02/2023 No 01/02/2023 No 01/02/2023 Reliable internet access at home? Not on file 01/02/2023 Device with a working camera? Not on file Comments No Sex and Gender Information Value Date Recorded Sex Assigned at Female 04/28/2020 5:06 PM EDT Legal Sex Female 7:17 PM EST Gender Identity Female 04/28/2020 5:06 PM EDT Sexual Orientation Not on file Last Filed Vital Signs Vital Sign Reading Time Taken Comments Blood Pressure 141/75 07/12/2021 12:56 PM EST Pulse 64 07/12/2021 12:56 PM EST Temperature 36 C (96.8 F) 07/12/2021 12:56 PM EST Respiratory Rate 16 07/12/2021 12:56 PM EST Oxygen Saturation 100% 07/12/2021 12:56 PM EST Inhaled Oxygen Concentration - - Weight 74.8 kg (165 lb) 07/09/2021 10:08 AM EST Height 162.6 cm (5' 4 ) 07/09/2021 10:08 AM EST Body Mass Index 28.32 07/09/2021 10:08 AM EST Plan of Treatment Health Maintenance Due Date Last Done Comments BLOOD PRESSURE 1950 LIPID PANEL 1950 DEPRESSION SCREENING 1960 HEPATITIS C SCREENING 1966 RSV VACCINE (1 - 1-dose 75+ series) 2023 COVID-19 VACCINE (2023- season) 2024 12/21/2021, 05/14/2021, 11/09/2020, Additional history exists Adult Td,Tdap Booster 08/17/2026 08/17/2016 ZOSTER VACCINES Completed 03/31/2018, 03/07, 01/30/2018, Additional history exists PNEUMOCOCCAL VACCINES (50+ years) Completed 09/27/2018, 12/28/2015, 12/17/2015 OSTEOPOROSIS SCREENING INITIAL (ONE-TIME) Completed 02/09/2021, 01/29/2019, 05/21/2013, Additional history exists SMOKING STATUS SCREENING (Once After 26 Yrs) Completed 07/12/2021 HEPATITIS A VACCINES Aged Out No long er eligible based on patient's age to complete this topic HIB VACCINES Aged Out No longer eligi ble based on patient's age to complete this topic MENINGOCOCCAL VACCINES (ACWY) Aged Out No longer eligible based on patient's age to complete this topic MENINGOCOCCAL VACCINES (B) Aged Out N o longer eligible based on patient's age to complete this topic Medical Devices Not on file Procedures Procedure Name Priority Date/Time Associated Diagnosis Comments BD DXA AXIAL (SPINE) WITH HIP Routine 02/09/2021 1:20 PM EDT History of breast cancer Menopausal and postmenopausal disorder from Last 3 Months or Most Recently Relevant to Health Maintenance Results * BD DXA AXIAL (SPINE) WITH HIP (02/09/2021 1:20 PM EDT) Anatomical Region Laterality Modality Bone Density Bone Density Narrative 02/28/2021 2:49 PM EDT Name: Alison Mary Age: 70 Sex: Female Ethnicity: White Date of : 1950 Clinician ID: Exam Date: February 09, 2021 Suzan Silverman M.D., Director [facility] [address] [place] [address] Referring Physician: CHRISTIE ART M.D. Study: Bone densitometry was performed on Hologic DXA. Accession number: [id number] INDICATION: 70 y/o postmenopausal woman with history of osteopenia, progressive height loss, left toe fracture from stubbing at age 70, breast cancer, vitamin D 2000iu and s/p radiation therapy. Follow-up BMD. BONE DENSITY: Compared Compared to Classification* Percent Bone To Young Age-Adjusted Significant Region Density Normals Normals Change Since (gm/cm2) (T-Score) (Z-Score) Baseline Previous S.D. S.D. 09/28/09 01/29/19 AP Spine (L1-L4) 0.935 -1.0 1.2 Normal -5.5% No change Femoral Neck (Left) 0.678 -1.5 0.4 Osteopenia -7.1% No change Total Hip (Left) 0.809 -1.1 0.6 Osteopenia -5.8% No change *World Health Organization criteria for BMD interpretation classify patients as: Normal (T-score at or above -1.0), Osteopenic (T-score between -1.0 and -2.5), or Osteoporotic (T-score at or below -2.5). INTERPRETATION: OSTEOPENIA (LOW BONE MASS) is present by bone density criteria at the hip. SPINE: Bone density of the lumbar spine at the high end of the normal range compared with age-adjusted controls. HIP: Normal bone density of the hip compared with age-adjusted controls. FRACTURE RISK ASSESSMENT: According to the 10-year absolute fracture risk in the FRAX calculator and the National Osteoporosis Foundation recommendations, treatment is not indicated at the present time. Fracture risk assessment with the WHO FRAX Calculator is 10% for major osteoporotic fracture and 1.7% for hip fracture. RECOMMENDATIONS: Would consider follow-up BMD in one to two years of the spine and hip. Karen Doll M.D. tyrone cortes Comment: The National Osteoporosis Foundation Clinicians Guide recommends treatment if either the 10-year risk for hip fracture is >=3% or for major osteoporotic fracture is >=20%. All treatment decisions require clinical judgment and consideration of individual patient factors, including patient preferences, comorbidities, previous drug use and risk factors not captured in the FRAX model (e.g. frailty, falls, vitamin D deficiency, increased bone turnover, interval significant decline in BMD). National Osteoporosis Foundation 2008 Clinicians Guide to Prevention and Treatment of Osteoporosis. National Osteoporosis Foundation, [place], [place], [place]. www.nof.org FRAX is intended for use in patients with osteopenia to estimate fracture probabilities in postmenopausal women age 40 years and older and men age 50 years and older. It has not been validated for use on patients currently or formerly treated with pharmacotherapy for osteoporosis. Christie HENRY BD BONE DENSITY DEXA Final Result from Last 3 Months or Most Recently Relevant to Health Maintenance Insurance MEDICARE PART A & B MEDICARE SUPPLEMENT MEDICARE PART A & B MEDICARE SUPPLEMENT MEDICARE PART A & B [id number] [place] [address] MEDICARE SUPPLEMENT Member Subscriber Plan / Payer ( fective 2015-Present) Name:Alison Mary Relation to Subscriber:Self Name:Alison Mary Payer ID:[id number] (NAIC) Group ID:Not on file Type:WirelessGate Address: [facility] [id number] [place] [phone] MEDICARE PART A & B [facility] MEDICARE SUPPLEMENT MEDICARE PART A & B MEDICARE SUPPLEMENT MEDICARE PART A & B MEDICARE SUPPLEMENT Member Subscriber Plan / Payer ( fective 2015-) Name:Alison Mary Relation to Subscriber:Self Name:Alison Mary Payer ID:[id number] (NAIC) Group ID:Not on file Type:O Address: [address] [place] [id number] MEDICARE PART A & [place] [address] MEDICARE SUPPLEMENT MEDICARE PART A & B [facility] MEDICARE SUPPLEMENT MEDICARE PART A & B [facility] MEDICARE SUPPLEMENT Care Teams Ergonomic Specialist Relationship Specialty Start Date End Date Sourav Dela Curz MD [address] [place] [phone] PCP - General Internal Medicine 01/17/17 Sourav Dela Cruz MD [address] [place] [phone] Internal Medicine 01/17/17 Zuly Roque NP [address] [place] [address] [email or web address] Nurse Practitioner Oncology 02/24/22 Additional Source Comments The information contained in this document represents components of the legal health record. It is not the complete legal health record.[facility]
--- OUTSIDE RECORDS SUMMARY | 2025-02-24 16:06 | XMS_ITS | Patient Health Record ---
Author Organization [facility] Address [address] [place] [address] Care Team Providers Care Resident Buyer Name Role Phone Sourav Dela Cruz MD [...] Problem Status W/U Status Risk Notes Problem [id number] Colon cancer screening (Z12.11) Active confirmed Problem [id number] halfway (current) use of aspirin (Z79.82) Active confirmed Plan Of Treatment Future Test Test Name Order Date COLONOSCOPY 12/15/2021 Insurance Providers Payer Name Payer Address Payer Phone Subscriber Number Group Number Insured Name Patient Relationship to Insured Coverage Start Date Coverage End Date MEDICARE OF [place] [address] [place] [address] [id number] SANYA KIRK Self - patient is the insured [facility] SUPPLEMENTAL PLAN [address] [place] [address] [phone] [id number] SANYA KIRK Self - patient is the insured Medical (General) History Medical History History ICD Code Hypertension Elevated cholesterol Osteoporosis Left breast cancer status post lumpectom y, XRT, hormonal therapy 7 years Coronary artery disease Anxiety Gastroesophageal reflux disease Fatty liver Surgical History Surgery Date(Month/Year) Left breast lumpectomy 2007 angioplasty 2015 Colonoscopy, ten-year followup 2010
== END 2025-02-24 15:38 | disposition home or self-care (01) ==
LOC: HO.MAMMO 15:37
PROVIDERS: Absent Provider Obstetrics & Gynecology; PCP Internal Medicine; Visit Provider Internal Medicine
DX: Z12.31 Encounter for screening mammogram for malignant neoplasm of breast (principal)
CPT/HCPCS: 77063; 77067

== ENCOUNTER → 2025-02-24 15:45 | Outpatient (BNV) | payer MEDICARE, SELFPAY | PROVIDERS: Absent Provider Obstetrics & Gynecology; PCP Internal Medicine; Visit Provider Internal Medicine | DX: Z12.31 Encounter for screening mammogram for malignant neoplasm of breast (principal) | CPT/HCPCS: 77063; 77067 ==

== ENCOUNTER 2025-05-13 08:51 | Outpatient (REF) | payer MEDICARE, SELFPAY ==
--- NOTE | ~2025-05-13 | MM_ITS ---
EXAMINATION: DXA BONE DENSITY AXIAL HISTORY: AGE RELATED OSTEOPOROSIS W/O CURRENT PATHOLOGICAL FRACTURE TECHNIQUE: [email or web address] Dual energy absorptiometry (DEXA) of the lumbar spine, total left hip, and femoral neck was performed. COMPARISON: Comparison is made with the prior examination dated 05/11/2023. FINDINGS: The bone mineral density of the lumbar spine is 1.296 g/cm2, corresponding to a T-score of 1.0, and a Z-score of 2.7. This is indicative of normal bone mineral density. This represents a BMD change of 11.3% compared to the prior exam. This is statistically significant. The bone mineral density of the left total hip is 0.883 g/cm2, corresponding to a T-score of -1.0, and a Z-score of 0.8. This is indicative of normal bone mineral density. This represents a BMD change of 94.9% compared to the prior exam. This is statistically significant. The bone mineral density of the left femoral neck is 0.812 g/cm2, corresponding to a T-score of -1.6, and a Z-score of 0.3. This is indicative of osteopenia. This represents a BMD change of 112.0% compared to the prior exam. FRACTURE RISK: The FRAX index suggests a ten year probability of major osteoporotic fracture of 12.7%, and of hip fracture 2.9%. MM/XR DEXA axial skeleton IMPRESSION: Based on bone mineral density, and according to World Health Organization (WHO) criteria, the diagnosis is consistent with osteopenia. Statistically, 68% of repeat scans fall within 1 SD (+/- 0.010 g/cm2 for AP spine L1-L4) and 1 SD (+/- 0.012 g/cm2 for femur total) FRAX is a trademark of the [employer] [place] [facility], a World Health Organization (WHO) Collaborating Center. Electronically signed by: Jaime Carias MD 05/13/2025 10:06 AM EDT
--- OUTSIDE RECORDS SUMMARY | 2025-05-13 09:37 | XMS_ITS | Encounter Summary ---
Author Organization [facility] Address [address] [place] [address] Phone Care Team Providers Care Calciminer Name Role Phone Stacie Conde MD Unavailable Lenora Mchugh DNP Unavailable [phone] Sourav Dela Cruz MD Unavailable [phone] Sourav Dela Cruz MD Primary Care Provider [phone] Zuly Roque MUFFLER INSTALLER Unavailable [phone] Encounter Details Date Type Department Care Team (Late st Contact Info) Description 02/16/2021 Procedure Pass [facility] [place], Mammography, Elaine Lank Imaging Department [address] [place] [address] Social History Tobacco Use Types Packs/Day Years Used Date Smoking Tobacco: Never Smokeless Tobacco: Never Alcohol Use Standard Drinks/Week Comments Yes 0 (1 standard drink = 0.6 oz pur e alcohol) occ Comments No Sex and Gender Information Value Date Recorded Sex Assigned at Female 04/28/2020 5:06 PM EDT Legal Sex Female 7:17 PM EST Gender Identity Female 04/28/2020 5:06 PM EDT Sexual Orientation Not on file documented as of this encounter Plan of Treatment Not on file documented as of this encounter Visit Diagnoses Not on filedocumented in this encounter Care Teams Calciminer Relationship Specialty Start Date End Date Sourav Dela Cruz MD [address] [place] [phone] PCP - General Internal Medicine 01/17/17 Stacie Conde MD [address] [place] [address] [email or web address] Historical LMR Provider 12/19/14 08/14/21 Lenora Mchugh DNP [address] [place] [address] [email or web address] Historical LMR Provider 12/19/14 08/14/21 Sourav Dela Cruz MD [address] [place] [phone] Internal Medicine 01/17/17 Zuly Roque NP [address] [place] [address] [email or web address] Nurse Practitioner Oncology 02/24/22 documented as of this encounter Additional Source Comments The information contained in this document represents components of the legal health record. It is not the complete legal health record.[facility]
--- OUTSIDE RECORDS SUMMARY | 2025-05-13 09:37 | XMS_ITS | Encounter Summary ---
Author Organization [facility] Address [address] [place] [address] Phone Care Team Providers Care De Ionizer Operator Name Role Phone Stacie Conde MD Unavailable [phone] Lenora Mchugh DNP Unavailable [phone] Sourav Dela Cruz MD Unavailable [phone] Sourav Dela Cruz MD Primary Care Provider Zuly Roque PROFESSOR OF ENVIRONMENTAL STUDIES Unavailable Encounter Details Date Type Department Care Team (Late st Contact Info) Description 07/07/2020 Procedure Pass [facility] [place], Mammography, Elaine Lank Imaging Department [address] [place] [address] Social History Tobacco Use Types Packs/Day Years [...] on filedocumented in this encounter Care Teams De Ionizer Operator Relationship Specialty Start Date End Date Sourav Dela Cruz MD [address] [place] [phone] PCP - General Internal Medicine 01/17/17 Stacie Conde MD [address] [place] [address] [email or web address] Historical LMR Provider 12/19/14 08/14/21 Lenora Mchugh DNP [address] [place] [address] [email or web address] Historical LMR Provider 12/19/14 08/14/21 Sourav Dela Cruz MD [address] [place] [phone] Internal Medicine 01/17/17 Zuly Roque NP [address] [place] [address] [email or web address] Nurse Practitioner Oncology 02/24/22 documented as of this encounter Additional Source Comments The information contained in this document represents components of the legal health record. It is not the complete legal health record.[facility]
--- OUTSIDE RECORDS SUMMARY | 2025-05-13 09:37 | XMS_ITS | Encounter Summary ---
Author Organization [facility] Address [address] [place] [address] Phone Care Team Providers Care Duplicator Punch Operator Name Role Phone Stacie Conde MD Unavailable Lenora Mchugh DNP Unavailable [phone] Sourav Dela Cruz MD Unavailable [phone] Sourav Dela Cruz MD Primary Care Provider [phone] Zuly Roque WALL MIRROR DEPARTMENT SUPERVISOR Unavailable [phone] Encounter Details Date Type Department Care Team (Late st Contact Info) Description 07/12/2021 Procedure Pass [facility] Endoscopy Admitting Dept Virtual Department [address] [place] [address] Social History Tobacco Use Types Packs/Day Years [...] on filedocumented in this encounter Care Teams Duplicator Punch Operator Relationship Specialty Start Date End Date Sourav Dela Cruz MD [address] [place] [address] PCP - General Internal Medicine 01/17/17 Stacie Conde MD [address] [place] [address] [email or web address] Historical LMR Provider 12/19/14 08/14/21 Lenora Mchugh DNP [address] [place] [address] [email or web address] Historical LMR Provider 12/19/14 08/14/21 Sourav Dela Cruz MD [address] [place] [address] [place] [phone] Internal Medicine 01/17/17 Zuly Roque NP [address] [place] [address] [email or web address] Nurse Practitioner Oncology 02/24/22 documented as of this encounter Additional Source Comments The information contained in this document represents components of the legal health record. It is not the complete legal health record.[facility]
--- OUTSIDE RECORDS SUMMARY | 2025-05-13 09:37 | XMS_ITS | Clinical Summary ---
Author Organization [facility] Address [address] [place] [address] Phone Care Team Providers Care Post Acute Care Nurse Name Role Phone Sourav Dela Cruz MD Unavailable [phone] Sourav Dela Cruz MD Primary Care Provider [phone] Ciampa, Zuly H DUMP OPERATOR Unavailable [phone] Allergies Active Allergy Reactions Criticality Noted Date [...] Overview (05/01/2020): Malignant tumor of breast left. 2007 and surgery lumpectomy [place] and XRT in [facility] Sees the DUMP OPERATOR in [place]. Last exam 2019 with mammo. Hypertensive disorder 05/21/2012 Overview (09/26/2014): [...] VACCINE (1 - 1-dose 75+ series) 2023 INFLUENZA VACCINE (#1) 2025 , 05/11/2021, 05/11/2020, Additional history exists COVID-19 VACCINE ( - 2024- season) 2025 12/21/2021, 05/14/2021, 11/09/2020, Additional history exists Adult [...] and Osteoporosis Center and Bone Density Unit [address] [place] [address] Referring Physician: CHRISTIE ART M.D. Study: Bone densitometry was performed on Hologic DXA. Accession number: [id number] INDICATION: 70 y/o postmenopausal woman with history [...] the spine and hip. Karen Doll M.D. dd hous Comment: The National Osteoporosis Foundation Clinicians Guide [...] or formerly treated with pharmacotherapy for osteoporosis. us Christie HENRY BD BONE DENSITY DEXA Final Result from Last 3 Months or Most Recently Relevant to Health Maintenance Insurance MEDICARE PART A & B MEDICARE SUPPLEMENT MEDICARE PART A & B MEDICARE SUPPLEMENT MEDICARE PART A & B MEDICARE SUPPLEMENT MEDICARE PART A & B MEDICARE SUPPLEMENT MEDICARE PART A & B [facility] MEDICARE SUPPLEMENT MEDICARE PART A & B Member Subscriber Plan / Payer (Ef fective 2013-Present) Name:Alison Mary Member ID:[id number] Relation to Subscriber:Self Name:Alison Mary Subscriber ID:[id number] Payer ID:[id number] Group ID:Not on file Type:Medicare Address: [employer] [address] MEDICARE SUPPLEMENT MEDICARE PART A & B MEDICARE SUPPLEMENT MEDICARE PART A & B Member Subscriber Plan / Payer (Ef fective 2013-Present) Name:Alison Mary Member ID:[id number] Relation to Subscriber:Self Name:Alison Mary Subscriber ID:[id number] Payer ID:[id number] Group ID:Not on file Type:Medicare Address: [employer] [address] MEDICARE SUPPLEMENT MEDICARE PART A & B [facility] MEDICARE SUPPLEMENT Care Teams Post Acute Care Nurse Relationship Specialty Start Date End Date Po, Lorenver Pearson, MD [address] [place] [phone] PCP - General Internal Medicine 01/17/17 Sourav Dela Cruz MD [address] [place] [phone] Internal Medicine 01/17/17 Zuly Roque NP [address] [place] [address] [email or web address] Nurse Practitioner Oncology 02/24/22 Additional Source Comments The information contained in this document represents components of the legal health record. It is not the complete legal health record.[facility]
--- OUTSIDE RECORDS SUMMARY | 2025-05-13 09:37 | XMS_ITS | Patient Health Record ---
Author Organization [facility] Address [address] [place] [address] Care Team Providers Care Exercise Manager Name Role Phone Sourav Dela Cruz MD [...] Problem Status W/U Status Risk Notes Problem [id number] Colon cancer screening (Z12.11) Active confirmed Problem [id number] long term care phlebotomist (current) use of aspirin (Z79.82) Active confirmed Plan Of Treatment Future Test Test Name Order Date COLONOSCOPY 12/15/2021 Insurance Providers Payer Name Payer Address Payer Phone Subscriber Number Group Number Insured Name Patient Relationship to Insured Coverage Start Date Coverage End Date MEDICARE OF [place] [address] [facility] [address] [id number] SANYA KIRK Self - patient is the insured [facility] SUPPLEMENTAL PLAN [address] [place] [id number] SANYA KIRK Self - patient is the insured Medical (General) History Medical History History ICD Code Hypertension Elevated cholesterol Osteoporosis Left breast cancer status post lumpectom y, XRT, hormonal therapy 7 years Coronary artery disease Anxiety Gastroesophageal reflux disease Fatty liver Surgical History Surgery Date(Month/Year) Left breast lumpectomy 2007 angioplasty 2015 Colonoscopy, ten-year followup 2010
== END 2025-05-13 08:52 | disposition home or self-care (01) ==
LOC: HO.MAMMO 08:51
PROVIDERS: PCP Internal Medicine; Visit Provider Internal Medicine Endocrinology, Diabetes & Metabolism
DX: M81.0 Age-related osteoporosis without current pathological fracture (principal)
CPT/HCPCS: 77080

== ENCOUNTER → 2025-05-13 09:15 | Outpatient (BNV) | payer MEDICARE, SELFPAY | PROVIDERS: PCP Internal Medicine; Visit Provider Radiology Diagnostic Radiology | DX: E28.39 Other primary ovarian failure (principal) | CPT/HCPCS: 77080 ==